=== PATIENT | male | born 1950 | race African-American/Black ===

== ENCOUNTER 2019-12-03 18:08 | Inpatient (IN) | payer MEDICARE, OTHER ==
[2019-12-04 08:09] VITALS: BP 124/72
--- NOTE | 2019-12-04 11:42 | History & Physical ---
ADMIT DATE: 12/04/2019 IDENTIFYING INFORMATION: The patient is a 69-year-old black male. CHIEF COMPLAINT: No answer. HISTORY OF PRESENT ILLNESS: The patient was referred because of agitation and psychosis. The patient himself was a poor historian. He believes he was 1 years of age. When I asked if he is , he pointed to the ceiling. When asked if he went to school, he said his kids. When I asked him what he did. He walk and speak. He did not know where he is or why he is here. He can tell me the date. He was a very poor historian. He was in the [place], intent to harm herself or anyone. He asked if he has any children. He pointed to the ceiling. He is a very poor historian and easily agitated. PAST PSYCHIATRIC HISTORY: Unobtainable. MEDICAL HISTORY: Deferred to the medical doctor. ALLERGIES: THE PATIENT IS ALLERGIC TO CODEINE. MEDICATIONS: The patient was started on Risperdal 0.5 mg twice a day, Depakote 250 mg twice a day. FAMILY AND SOCIAL HISTORY: The patient may be . He is not sure where he lives. He is not sure if he has any children. Unable to get information from him. MENTAL STATUS EXAMINATION: The patient is appropriately dressed, not well groomed. He was alert. He was able to talk, but he was not making sense, unable to tell me the date, where he is, why he is here, unable to participate in a formal mental status examination or give me any information regarding his background and why he is here. He seems to be demented and confused. His long or short term memory is poor. His insight and judgment is impaired. IMPRESSION: Psychosis, not otherwise specified, dementia. MEDICAL DIAGNOSES: As per medical doctor. His assets, accepting treatment. Negative for coping skills. INITIAL TREATMENT PLAN: The patient will continue with Depakote and Risperdal. We will do group therapy and milieu therapy. ESTIMATED LENGTH OF STAY: 3-7 days. DISCHARGE CRITERIA: Decreasing psychosis, agitation and confusion, after discharge outpatient. JOB# [id number]
[2019-12-04] MEDS ORDERED: Maalox 30 mL Cup PO PRN (13:06)
[2019-12-04] MEDS ORDERED: D METHORPHAN HB PO PRN (13:06)
[2019-12-04] MEDS ORDERED: Hydrocodone/APAP 5mg/325mg Tab PO PRN (13:06)
[2019-12-04] MEDS ORDERED: Albuterol/Ipratropium Neb 3 ML AERS HHN PRN (13:06)
[2019-12-04] MEDS ORDERED: GUAIFENESIN PO PRN (13:06)
[2019-12-04] MEDS ORDERED: [UNRECOGNIZED DRUG - OTHER] PO PRN (13:06)
[2019-12-04] MEDS ORDERED: Magnesium Hydroxide (MOM) 30 mL UDC PO PRN (17:33)
[2019-12-04] MEDS: Guaifenesin DM 10 ML UDC PO PRN (20:39)
--- NOTE | 2019-12-05 06:56 | Consultation ---
DATE OF CONSULTATION: 12/04/2019 REASON FOR CONSULTATION: Medical management and clearance. The patient admitted to inpatient unit. HISTORY OF PRESENT ILLNESS: This is a 69-year-old male with history of COPD, chronic pain syndrome, constipation, admitted from ____ secondary to agitated behavior. The patient was admitted and cleared medically from [facility]. The patient denies chest pain, shortness of breath at this time. PAST MEDICAL HISTORY: As mentioned in history of present illness. PAST SURGICAL HISTORY: Status post thyroid surgery. ALLERGIES: CODEINE. MEDICATIONS: Albuterol, guaifenesin, the patient was also on morphine as needed at the hospital. FAMILY HISTORY: Denies diabetes, coronary artery disease. SOCIAL HISTORY: Smokes about 2-3 cigarettes per day, drinks heavily when he was younger, used to work in postal office. Single with one child. The patient has been in a nursing facility for months. REVIEW OF SYSTEMS: GENERAL: The patient denies any constitutional symptoms per nursing, the patient is still agitated. HEENT: The patient with some blurred vision. NECK: No neck pain. LUNGS: No diagnosis of asthma. The patient with no COPD. ABDOMEN: No nausea, vomiting or pain. GENITOURINARY: The patient denies increased frequency, dysuria or hematuria. NEUROLOGIC: No headache, seizure or syncope. PSYCHIATRIC: Stable. ENDOCRINE: The patient denies diabetes. HEMATOLOGY: No ____. PHYSICAL EXAMINATION: VITAL SIGNS: Blood pressure 124/73, respirations 20, pulse 89, temperature 97.5. GENERAL: Elderly male, thin built. NECK: Supple. No mass. LUNGS: Equal breath sounds with a few rhonchi. HEART: Regular rate and rhythm without appreciable murmur. ABDOMEN: Soft, nontender. Positive bowel sounds. ____ abscess. SKIN: The patient with dry skin. EXTREMITIES: No clubbing, cyanosis or edema. NEUROLOGIC: The patient is alert. The patient of Dr. Covington ____ downward. We will ____ has normal sensation and forehead ____ unable to move his upper ____, able to shrug his shoulders on both sides. The patient will be able to ____ motor and sensory were equal. Gait not seen. The patient is in bed. Reflexes unable to be performed. The patient refused ____. LABORATORY DATA: Labs were noted, hemoglobin was 13. ASSESSMENT AND PLAN: Alzheimer dementia, chronic obstructive pulmonary disease, constipation, chronic pain syndrome, anemia, elevated liver function tests, 42 and 57 of AST and ALT respectively, albumin 2.9. We will provide the patient with bronchodilator treatment as well as laxative. We will provide the patient adequate pain control. Monitor the patient's hemoglobin and hematocrit. We will check the patient's liver function tests. We will provide the patient with good nutrition support. We will continue to follow the patient with Dr. Adria carlisle. The patient medically cleared. JOB# [id number]
[2019-12-05] MEDS: Multivitamin Tab PO SCH (09:34)
--- NOTE | 2019-12-05 11:58 | Progress Notes ---
DATE: 12/05/2019 Case was discussed with staff of the patient, reviewed records. The patient continues to be rambling, unable to make safe plan for self-care or participate in a meaningful conversation. Continues to have episodes of agitation, irritability, refusing medication at times, and very poor insight. Working on trying to move the patient to take medication, be compliant. We will continue the patient in group therapy, milieu therapy, and adjust medications as needed. JOB# [id number]
--- NOTE | 2019-12-05 12:45 | Internal Medicine Prog Note ---
Internal Medicine Subjective - Subjective Patient seen and examined:: with staff, chart reviewed Patient is:: awake, verbal, interactive, confused Per staff patient has:: no adverse event, no episodes of fall, tolerating meds Internal Medicine Objective - Physical Exam Vitals and I&O: Vital Signs Temp 97.6 F 12/05/19 06:16 Pulse 74 12/05/19 06:16 Resp 20 12/05/19 06:16 BP 114/66 12/05/19 06:16 Pulse Ox 98 12/05/19 06:16 Intake & Output 12/04/19 12/05/19 12/05/19 18:59 06:59 18:59 Intake Total 240 Output Total 1 Balance 239 Weight (lbs) 53.796 kg Intake: Oral 240 Output: Urine/Stool Mix 1 Other: # Voids 1 Stool Characteristics Formed Weight Source Bedscale Active Medications: Current Medications Acetaminophen (Tylenol 650mg Supp) 650 mg RC Q6H PRN PRN Reason: Pain (Mild 1-3) Stop: 02/02/20 08:47 Acetaminophen (Tylenol 650mg Supp) 650 mg RC Q6H PRN PRN Reason: Temperature above 101 Stop: 02/02/20 08:48 Acetaminophen (Tylenol) 650 mg PO Q4H PRN PRN Reason: Pain (Mild 1-3) Stop: 02/02/20 13:05 Acetaminophen/Hydrocodone Bitart ([place] 5mg/325mg) 1 tab PO Q4H PRN PRN Reason: Pain (Severe 7-10) Stop: 02/02/20 13:05 Al Hydrox/Mg Hydrox/Simethicone (Maalox) 30 ml PO Q6H PRN PRN Reason: Dyspepsia Stop: 02/02/20 13:05 Albuterol/Ipratropium (Duoneb Neb) 3 ml HHN Q6HR PRN PRN Reason: shortness of breath or wheezin Stop: 02/02/20 13:05 Guaifenesin/Dextromethorphan (Robitussin Dm) 5 ml PO Q6H PRN PRN Reason: Cough Stop: 02/02/20 14:13 Last Admin: 12/04/19 20:39 Dose: 5 ml Lorazepam (Ativan) 0.5 mg PO Q4HR PRN; Protocol PRN Reason: Anxiety Stop: 01/03/20 08:06 Magnesium Hydroxide (Milk Of Magnesia) 30 ml PO HS PRN PRN Reason: Constipation Multivitamins/Vitamin C (Theragran) 1 tab PO DAILY IRAIS Stop: 02/03/20 08:59 Last Admin: 12/05/19 09:34 Dose: Not Given Risperidone (Risperdal) 0.5 mg PO BID IRAIS; Protocol Stop: 02/02/20 08:59 Last Admin: 12/05/19 10:20 Dose: 0.5 mg Valproate Sodium (Depakene) 250 mg PO BID IRAIS; Protocol Stop: 02/02/20 08:59 Last Admin: 12/05/19 10:20 Dose: 250 mg Zolpidem Tartrate (Ambien) 5 mg PO HS PRN PRN Reason: Insomnia Stop: 02/02/20 08:06 Last Admin: 12/04/19 20:40 Dose: 5 mg General: demented HEENT: NC/AT, PERRLA Neck: Supple Lungs: CTAB Cardiovascular: RRR, Normal S1, Normal S2, with murmur Abdomen: soft, positive bowel sound Extremities: excoriation Internal Medicine Assmt/Plan - Assessment Assessment: ASSESSMENT AND PLAN: Alzheimer dementia, chronic obstructive pulmonary disease, constipation, chronic pain syndrome, anemia, elevated liver function tests, 42 and 57 of AST and ALT respectively, albumin 2.9. - Plan Plan: PLAN: We will provide the patient with bronchodilator treatment as well as laxative. We will provide the patient adequate pain control. Monitor the patient's hemoglobin and hematocrit. We will check the patient's liver function tests. We will provide the patient with good nutrition support. We will continue to follow the patient with Dr. Adria carlisle.
[2019-12-05] MEDS: Guaifenesin DM 10 ML UDC PO PRN (20:42)
[2019-12-06] MEDS: Multivitamin Tab PO SCH (09:51)
--- NOTE | 2019-12-06 11:52 | Internal Medicine Prog Note ---
Internal Medicine Subjective - Subjective Service Date: 12/06/19 Patient is:: awake, verbal, interactive, confused Per staff patient has:: no adverse event, no episodes of fall, tolerating meds Internal Medicine Objective - Physical Exam Vitals and I&O: Vital Signs Temp 99.0 F 12/05/19 20:22 Pulse 73 12/05/19 20:22 Resp 18 12/06/19 08:00 BP 100/55 12/05/19 20:22 Pulse Ox 98 12/05/19 20:22 Intake & Output 12/05/19 12/06/19 12/06/19 18:59 06:59 18:59 Intake Total 180 Balance 180 Intake: Oral 180 Other: # Voids 1 # Bowel Movements 0 Stool Characteristics Formed Formed Active Medications: Current Medications Acetaminophen (Tylenol 650mg Supp) 650 mg RC Q6H PRN PRN Reason: Pain (Mild 1-3) Stop: 02/02/20 08:47 Acetaminophen (Tylenol 650mg Supp) 650 mg RC Q6H PRN PRN Reason: Temperature above 101 Stop: 02/02/20 08:48 Acetaminophen (Tylenol) 650 mg PO Q4H PRN PRN Reason: Pain (Mild 1-3) Stop: 02/02/20 13:05 Acetaminophen/Hydrocodone Bitart ([place] 5mg/325mg) 1 tab PO Q4H PRN PRN Reason: Pain (Severe 7-10) Stop: 02/02/20 13:05 Al Hydrox/Mg Hydrox/Simethicone (Maalox) 30 ml PO Q6H PRN PRN Reason: Dyspepsia Stop: 02/02/20 13:05 Albuterol/Ipratropium (Duoneb Neb) 3 ml HHN Q6HR PRN PRN Reason: shortness of breath or wheezin Stop: 02/02/20 13:05 Guaifenesin/Dextromethorphan (Robitussin Dm) 5 ml PO Q6H PRN PRN Reason: Cough Stop: 02/02/20 14:13 Last Admin: 12/05/19 20:42 Dose: 5 ml Lorazepam (Ativan) 0.5 mg PO Q4HR PRN; Protocol PRN Reason: Anxiety Stop: 01/03/20 08:06 Magnesium Hydroxide (Milk Of Magnesia) 30 ml PO HS PRN PRN Reason: Constipation Multivitamins/Vitamin C (Theragran) 1 tab PO DAILY IRAIS Stop: 02/03/20 08:59 Last Admin: 12/06/19 09:51 Dose: 1 tab Risperidone (Risperdal) 0.5 mg PO BID IRAIS; Protocol Stop: 02/02/20 08:59 Last Admin: 12/06/19 09:51 Dose: 0.5 mg Valproate Sodium (Depakene) 250 mg PO BID IRAIS; Protocol Stop: 02/02/20 08:59 Last Admin: 12/06/19 09:51 Dose: 250 mg Zolpidem Tartrate (Ambien) 5 mg PO HS PRN PRN Reason: Insomnia Stop: 02/02/20 08:06 Last Admin: 12/05/19 20:42 Dose: 5 mg General: demented HEENT: NC/AT, PERRLA Neck: Supple Lungs: CTAB Cardiovascular: RRR, Normal S1, Normal S2, with murmur Abdomen: soft, positive bowel sound Extremities: excoriation Internal Medicine Assmt/Plan - Assessment Assessment: Alzheimer dementia, chronic obstructive pulmonary disease, constipation, chronic pain syndrome, anemia, elevated liver function tests, 42 and 57 of AST and ALT respectively, albumin 2.9. - Plan Plan: : We will provide the patient with bronchodilator treatment as well as laxative. We will provide the patient adequate pain control. Monitor the patient's hemoglobin and hematocrit. We will check the patient's liver function tests. We will provide the patient with good nutrition support. We will continue to follow the patient with Dr. Adria carlisle. Nutritional Asmnt/Malnutr-PDOC - Dietary Evaluation Malnutrition Findings (Please click <Entered> for more info): Nutritional Asmnt/Malnutrition Start: 12/05/19 15: 04 Text: Status: Complete Freq: Protocol: Document 12/05/19 15:04 ALVIN (Rec: 12/05/19 15:08 [email or web address] [email or web address]) Nutritional Asmnt/Malnutrition Patient General Information Nutritional Screening High Risk Consult Diagnosis Psychosis Pertinent Medical Hx/Surgical Hx COPD, Chronic pain syndrome, constipation, S/P thyroid surgery Subjective Information Consult: Underweight Pt is a 69-year-old male admitted on 12/04 d/t agitation and psychosis. Pt ate 85-100% lunch and dinner yesterday. Pt has noted constipation and Hx constipation, recommend nurse to encourage adequate fluid intake. Per BUSINESS PROCESS EXPERT, pt ate 100% breakfast and lunch today, drank all ensure at both meals . Spoke with pt at time of visit, pt stated people are swollen today and he eats enough. PT was missing front teeth, but tolerating mechanical soft, chopped meals well. Pt was not interested in a nutrition focused physical examination, will F/U in 3-5 days. Educated pt on requesting snacks when he is hungry, pt was overall a little confused. Will continue to monitor pt PO intake and weight trends. Anthropometrics HT: 58 WT: 118 LB (53.64 kg) BMI: 18.03 (Underweight) GI/ Skin Integrity GI: WNL, Soft, Flat, Constipation BM: Not Noted, noted constipation I/O: 240/1 (+239) Skin: Pt refused skin assessment 12/04, 12/05 Adán: 19 Diet Order: Mechanical Soft, Ensure Enlive TID, No Lactose Estimated Energy Needs: ( Underweight, CBW) 5396-7180 kcals (30-35 kcals/ kg) 60-70g Pro (1.2-1.3 g/kg) 9109-7219 ml (30-35 ml/kg) Current Diet Order/ Nutrition Support Mechanical Soft, Ensure Enlive TID, No Lactose Pertinent Medications Maalox (PRN), Albuterol (PRN), MOM (PRN), Theragran Pertinent Labs 12/04: A1c 5.1%, Alk Phos 281, AST 42, Alb 2.9 Nutritional Hx/Data Height 5 ft 8 in Height (Calculated Centimeters) 172.7 Current Weight (lbs) 118 lb 9.6 oz Weight (Calculated Kilograms) 53.8 Weight (Calculated Grams) 20977.1 Body Mass Index (BMI) 18.0 Weight Status Underweight GI Symptoms Last BM Not Noted, noted constipation Skin Integrity/Comment: Skin: Pt refused skin assessment 12/04, 12/05 Adán: 19 Current %PO Good (75-100%) Estimated Nutritional Goals BEE in Kcals: Using Current wt Calories/Kcals/Kg 30-35 Kcals Calculated 7068-5400 Protein: Using Current wt Protein g/k.2-1.3 Protein Calculated 60-70 Fluid: ml 7620-7749 ml (30-35 ml/kg) Nutritional Problem 1. Problem Problem Underweight Etiology r/t consistent energy underconsumption Signs/Symptoms: aeb BMI <18.5 (18.03). Malnutrition Related to Morbid Obesity Malnutrition related to morbid obesity No Intervention/Recommendation Comments 1.Continue Mechanical Soft, Ensure Enlive TID, No Lactose diet as tolerated. 2.Nurse to encourage adequate fluid intake d/t noted constipation. Expected Outcomes/Goals Expected Outcomes/Goals 1.PO intake to meet 75% of estimated nutritional needs. 2.Monitor PO intake, wt, nutrition related labs, and skin integrity. 3.Gradual weight gain (0.5-1.0 LB/week) trending toward IBW preferred. 4.F/U as moderate risk in 3-5 days, 12/08-12/10.
--- NOTE | 2019-12-06 19:55 | Progress Notes ---
DATE: 12/06/2019 Case was discussed with staff of the patient, reviewed records. The patient continues to be unpredictable, impulsive, needing redirection, refusing medication at times, hard to redirect. No side effects with the medication, no sedation, no nausea, no extrapyramidal symptoms. He is able to go to the group room now. Continue Risperdal 0.5 mg twice a day, Depakote 250 mg twice a day. We will continue outpatient group therapy, milieu therapy, and adjust medications as needed. JOB# [id number]
[2019-12-07] MEDS: Multivitamin Tab PO SCH (10:00)
--- NOTE | 2019-12-07 13:10 | Internal Medicine Prog Note ---
Internal Medicine Subjective - Subjective Service Date: 12/07/19 Patient is:: awake, verbal, interactive, confused Per staff patient has:: no adverse event, no episodes of fall, tolerating meds Internal Medicine Objective - Physical Exam Vitals and I&O: Vital Signs Temp 97.5 F 12/07/19 07:12 Pulse 78 12/07/19 07:12 Resp 18 12/07/19 08:00 BP 109/61 12/07/19 07:12 Pulse Ox 97 12/07/19 07:12 Intake & Output 12/06/19 12/07/19 12/07/19 18:59 06:59 18:59 Intake Total 1200 240 Balance 1200 240 Intake: Oral 1200 240 Other: # Voids 4 2 1 # Bowel Movements 0 Active Medications: Current Medications Acetaminophen (Tylenol 650mg Supp) 650 mg RC Q6H PRN PRN Reason: Pain (Mild 1-3) Stop: 02/02/20 08:47 Acetaminophen (Tylenol 650mg Supp) 650 mg RC Q6H PRN PRN Reason: Temperature above 101 Stop: 02/02/20 08:48 Acetaminophen (Tylenol) 650 mg PO Q4H PRN PRN Reason: Pain (Mild 1-3) Stop: 02/02/20 13:05 Acetaminophen/Hydrocodone Bitart ([place] 5mg/325mg) 1 tab PO Q4H PRN PRN Reason: Pain (Severe 7-10) Stop: 02/02/20 13:05 Al Hydrox/Mg Hydrox/Simethicone (Maalox) 30 ml PO Q6H PRN PRN Reason: Dyspepsia Stop: 02/02/20 13:05 Albuterol/Ipratropium (Duoneb Neb) 3 ml HHN Q6HR PRN PRN Reason: shortness of breath or wheezin Stop: 02/02/20 13:05 Guaifenesin/Dextromethorphan (Robitussin Dm) 5 ml PO Q6H PRN PRN Reason: Cough Stop: 02/02/20 14:13 Last Admin: 12/05/19 20:42 Dose: 5 ml Lorazepam (Ativan) 0.5 mg PO Q4HR PRN; Protocol PRN Reason: Anxiety Stop: 01/03/20 08:06 Magnesium Hydroxide (Milk Of Magnesia) 30 ml PO HS PRN PRN Reason: Constipation Multivitamins/Vitamin C (Theragran) 1 tab PO DAILY IRAIS Stop: 02/03/20 08:59 Last Admin: 12/07/19 10:00 Dose: 1 tab Risperidone (Risperdal) 0.5 mg PO BID IRAIS; Protocol Stop: 02/02/20 08:59 Last Admin: 12/07/19 10:00 Dose: 0.5 mg Valproate Sodium (Depakene) 250 mg PO BID IRAIS; Protocol Stop: 02/02/20 08:59 Last Admin: 12/07/19 10:00 Dose: 250 mg Zolpidem Tartrate (Ambien) 5 mg PO HS PRN PRN Reason: Insomnia Stop: 02/02/20 08:06 Last Admin: 12/06/19 21:04 Dose: 5 mg General: demented HEENT: NC/AT, PERRLA Neck: Supple Lungs: CTAB Cardiovascular: RRR, Normal S1, Normal S2, with murmur Abdomen: soft, positive bowel sound Extremities: excoriation Internal Medicine Assmt/Plan - Assessment Assessment: Alzheimer dementia, chronic obstructive pulmonary disease, constipation, chronic pain syndrome, anemia, elevated liver function tests, 42 and 57 of AST and ALT respectively, albumin 2.9. - Plan Plan: : We will provide the patient with bronchodilator treatment as well as laxative. We will provide the patient adequate pain control. Monitor the patient's hemoglobin and hematocrit. We will check the patient's liver function tests. We will provide the patient with good nutrition support. We will continue to follow the patient with Dr. Adria carlisle. Nutritional Asmnt/Malnutr-PDOC - Dietary Evaluation Malnutrition Findings (Please click <Entered> for more info): Nutritional Asmnt/Malnutrition Start: 12/05/19 15: 04 Text: Status: Complete Freq: Protocol: Document 12/05/19 15:04 ALVIN (Rec: 12/05/19 15:08 ALVIN [email or web address]) Nutritional Asmnt/Malnutrition Patient General Information Nutritional Screening High Risk Consult Diagnosis Psychosis Pertinent Medical Hx/Surgical Hx COPD, Chronic pain syndrome, constipation, S/P thyroid surgery Subjective Information Consult: Underweight Pt is a 69-year-old male admitted on 12/04 d/t agitation and psychosis. Pt ate 85-100% lunch and dinner yesterday. Pt has noted constipation and Hx constipation, recommend nurse to encourage adequate fluid intake. Per SENIOR LEAD PROJECT MANAGER, pt ate 100% breakfast and lunch today, drank all ensure at both meals . Spoke with pt at time of visit, pt stated people are swollen today and he eats enough. PT was missing front teeth, but tolerating mechanical soft, chopped meals well. Pt was not interested in a nutrition focused physical examination, will F/U in 3-5 days. Educated pt on requesting snacks when he is hungry, pt was overall a little confused. Will continue to monitor pt PO intake and weight trends. Anthropometrics HT: 58 WT: 118 LB (53.64 kg) BMI: 18.03 (Underweight) GI/ Skin Integrity GI: WNL, Soft, Flat, Constipation BM: Not Noted, noted constipation I/O: 240/1 (+239) Skin: Pt refused skin assessment 12/04, 12/05 Adán: 19 Diet Order: Mechanical Soft, Ensure Enlive TID, No Lactose Estimated Energy Needs: ( Underweight, CBW) 5951-2866 kcals (30-35 kcals/ kg) 60-70g Pro (1.2-1.3 g/kg) 9446-4243 ml (30-35 ml/kg) Current Diet Order/ Nutrition Support Mechanical Soft, Ensure Enlive TID, No Lactose Pertinent Medications Maalox (PRN), Albuterol (PRN), MOM (PRN), Theragran Pertinent Labs 12/04: A1c 5.1%, Alk Phos 281, AST 42, Alb 2.9 Nutritional Hx/Data Height 5 ft 8 in Height (Calculated Centimeters) 172.7 Current Weight (lbs) 118 lb 9.6 oz Weight (Calculated Kilograms) 53.8 Weight (Calculated Grams) 84453.1 Body Mass Index (BMI) 18.0 Weight Status Underweight GI Symptoms Last BM Not Noted, noted constipation Skin Integrity/Comment: Skin: Pt refused skin assessment 12/04, 12/05 Adán: 19 Current %PO Good (75-100%) Estimated Nutritional Goals BEE in Kcals: Using Current wt Calories/Kcals/Kg 30-35 Kcals Calculated 0742-4054 Protein: Using Current wt Protein g/k.2-1.3 Protein Calculated 60-70 Fluid: ml 4292-6446 ml (30-35 ml/kg) Nutritional Problem 1. Problem Problem Underweight Etiology r/t consistent energy underconsumption Signs/Symptoms: aeb BMI <18.5 (18.03). Malnutrition Related to Morbid Obesity Malnutrition related to morbid obesity No Intervention/Recommendation Comments 1.Continue Mechanical Soft, Ensure Enlive TID, No Lactose diet as tolerated. 2.Nurse to encourage adequate fluid intake d/t noted constipation. Expected Outcomes/Goals Expected Outcomes/Goals 1.PO intake to meet 75% of estimated nutritional needs. 2.Monitor PO intake, wt, nutrition related labs, and skin integrity. 3.Gradual weight gain (0.5-1.0 LB/week) trending toward IBW preferred. 4.F/U as moderate risk in 3-5 days, 12/08-12/10.
--- NOTE | 2019-12-07 20:08 | Progress Notes ---
DATE: 12/07/2019 Case was discussed with staff of the patient, reviewed records. The patient continues to be confused, demented, irritable. Continues to have poor insight, rambling speech, unable to make safe plan for self-care, unable to participate in meaningful conversation. He has been compliant with the medication with no side effects, no sedation, no nausea, no extrapyramidal symptoms. We will continue outpatient group therapy, milieu therapy, adjust medication as needed. JOB# [id number]
[2019-12-08] MEDS: Multivitamin Tab PO SCH (08:48)
--- NOTE | 2019-12-08 13:02 | Internal Medicine Prog Note ---
Internal Medicine Subjective - Subjective Patient seen and examined:: with staff, chart reviewed Patient is:: awake, verbal, interactive, confused Per staff patient has:: no adverse event, no episodes of fall, tolerating meds Internal Medicine Objective - Physical Exam Vitals and I&O: Vital Signs Temp 98.2 F 12/07/19 20:00 Pulse 82 12/07/19 20:00 Resp 18 12/08/19 08:00 BP 116/62 12/07/19 20:00 Pulse Ox 96 12/07/19 20:00 Intake & Output 12/07/19 12/08/19 12/08/19 18:59 06:59 18:59 Intake Total 800 120 Balance 800 120 Intake: Oral 800 120 Other: # Voids 4 3 # Bowel Movements 0 Active Medications: Current Medications Acetaminophen (Tylenol 650mg Supp) 650 mg RC Q6H PRN PRN Reason: Pain (Mild 1-3) Stop: 02/02/20 08:47 Acetaminophen (Tylenol 650mg Supp) 650 mg RC Q6H PRN PRN Reason: Temperature above 101 Stop: 02/02/20 08:48 Acetaminophen (Tylenol) 650 mg PO Q4H PRN PRN Reason: Pain (Mild 1-3) Stop: 02/02/20 13:05 Acetaminophen/Hydrocodone Bitart ([place] 5mg/325mg) 1 tab PO Q4H PRN PRN Reason: Pain (Severe 7-10) Stop: 02/02/20 13:05 Al Hydrox/Mg Hydrox/Simethicone (Maalox) 30 ml PO Q6H PRN PRN Reason: Dyspepsia Stop: 02/02/20 13:05 Albuterol/Ipratropium (Duoneb Neb) 3 ml HHN Q6HR PRN PRN Reason: shortness of breath or wheezin Stop: 02/02/20 13:05 Guaifenesin/Dextromethorphan (Robitussin Dm) 5 ml PO Q6H PRN PRN Reason: Cough Stop: 02/02/20 14:13 Last Admin: 12/05/19 20:42 Dose: 5 ml Lorazepam (Ativan) 0.5 mg PO Q4HR PRN; Protocol PRN Reason: Anxiety Stop: 01/03/20 08:06 Magnesium Hydroxide (Milk Of Magnesia) 30 ml PO HS PRN PRN Reason: Constipation Multivitamins/Vitamin C (Theragran) 1 tab PO DAILY IRAIS Stop: 02/03/20 08:59 Last Admin: 12/08/19 08:48 Dose: 1 tab Risperidone (Risperdal) 0.5 mg PO BID IRAIS; Protocol Stop: 02/02/20 08:59 Last Admin: 12/08/19 08:47 Dose: 0.5 mg Valproate Sodium (Depakene) 250 mg PO BID IRAIS; Protocol Stop: 02/02/20 08:59 Last Admin: 12/08/19 08:47 Dose: 250 mg Zolpidem Tartrate (Ambien) 5 mg PO HS PRN PRN Reason: Insomnia Stop: 02/02/20 08:06 Last Admin: 12/07/19 22:01 Dose: 5 mg General: demented HEENT: NC/AT, PERRLA Neck: Supple Lungs: CTAB Cardiovascular: RRR, Normal S1, Normal S2, with murmur Abdomen: soft, positive bowel sound Extremities: excoriation Internal Medicine Assmt/Plan - Assessment Assessment: ASSESSMENT AND PLAN: Alzheimer dementia, chronic obstructive pulmonary disease, constipation, chronic pain syndrome, anemia, elevated liver function tests, 42 and 57 of AST and ALT respectively, albumin 2.9. - Plan Plan: PLAN: We will provide the patient with bronchodilator treatment as well as laxative. We will provide the patient adequate pain control. Monitor the patient's hemoglobin and hematocrit. We will check the patient's liver function tests. We will provide the patient with good nutrition support. We will continue to follow the patient with Dr. Adria carlisle. Nutritional Asmnt/Malnutr-PDOC - Dietary Evaluation Malnutrition Findings (Please click <Entered> for more info): Nutritional Asmnt/Malnutrition Start: 12/05/19 15: 04 Text: Status: Complete Freq: Protocol: Document 12/05/19 15:04 ALVIN (Rec: 12/05/19 15:08 ALVIN [email or web address]) Nutritional Asmnt/Malnutrition Patient General Information Nutritional Screening High Risk Consult Diagnosis Psychosis Pertinent Medical Hx/Surgical Hx COPD, Chronic pain syndrome, constipation, S/P thyroid surgery Subjective Information Consult: Underweight Pt is a 69-year-old male admitted on 12/04 d/t agitation and psychosis. Pt ate 85-100% lunch and dinner yesterday. Pt has noted constipation and Hx constipation, recommend nurse to encourage adequate fluid intake. Per REMOTE CONTROL ASSEMBLER, pt ate 100% breakfast and lunch today, drank all ensure at both meals . Spoke with pt at time of visit, pt stated people are swollen today and he eats enough. PT was missing front teeth, but tolerating mechanical soft, chopped meals well. Pt was not interested in a nutrition focused physical examination, will F/U in 3-5 days. Educated pt on requesting snacks when he is hungry, pt was overall a little confused. Will continue to monitor pt PO intake and weight trends. Anthropometrics HT: 58 WT: 118 LB (53.64 kg) BMI: 18.03 (Underweight) GI/ Skin Integrity GI: WNL, Soft, Flat, Constipation BM: Not Noted, noted constipation I/O: 240/1 (+239) Skin: Pt refused skin assessment 12/04, 12/05 Adán: 19 Diet Order: Mechanical Soft, Ensure Enlive TID, No Lactose Estimated Energy Needs: ( Underweight, CBW) 5577-0436 kcals (30-35 kcals/ kg) 60-70g Pro (1.2-1.3 g/kg) 6823-0300 ml (30-35 ml/kg) Current Diet Order/ Nutrition Support Mechanical Soft, Ensure Enlive TID, No Lactose Pertinent Medications Maalox (PRN), Albuterol (PRN), MOM (PRN), Theragran Pertinent Labs 12/04: A1c 5.1%, Alk Phos 281, AST 42, Alb 2.9 Nutritional Hx/Data Height 1.73 m Height (Calculated Centimeters) 172.7 Current Weight (lbs) 53.796 kg Weight (Calculated Kilograms) 53.8 Weight (Calculated Grams) 94383.1 Body Mass Index (BMI) 18.0 Weight Status Underweight GI Symptoms Last BM Not Noted, noted constipation Skin Integrity/Comment: Skin: Pt refused skin assessment 12/04, 12/05 Adán: 19 Current %PO Good (75-100%) Estimated Nutritional Goals BEE in Kcals: Using Current wt Calories/Kcals/Kg 30-35 Kcals Calculated 6889-6269 Protein: Using Current wt Protein g/k.2-1.3 Protein Calculated 60-70 Fluid: ml 5775-2821 ml (30-35 ml/kg) Nutritional Problem 1. Problem Problem Underweight Etiology r/t consistent energy underconsumption Signs/Symptoms: aeb BMI <18.5 (18.03). Malnutrition Related to Morbid Obesity Malnutrition related to morbid obesity No Intervention/Recommendation Comments 1.Continue Mechanical Soft, Ensure Enlive TID, No Lactose diet as tolerated. 2.Nurse to encourage adequate fluid intake d/t noted constipation. Expected Outcomes/Goals Expected Outcomes/Goals 1.PO intake to meet 75% of estimated nutritional needs. 2.Monitor PO intake, wt, nutrition related labs, and skin integrity. 3.Gradual weight gain (0.5-1.0 LB/week) trending toward IBW preferred. 4.F/U as moderate risk in 3-5 days, 12/08-12/10.
--- NOTE | 2019-12-08 18:49 | Progress Notes ---
DATE: 12/08/2019 Case was discussed with staff of the patient, reviewed records. The patient continues rambling, continues to be unpredictable, impulsive, continues to have poor insight, unable to participate in meaningful conversation or make safe plan for self-care. No side effects with the medication, no sedation, no nausea, no extrapyramidal symptoms. We will continue the patient in group therapy, milieu therapy, and adjust medications as needed. [facility]# [id number]
[2019-12-09] MEDS: Multivitamin Tab PO SCH (08:51)
--- NOTE | 2019-12-09 12:09 | Internal Medicine Prog Note ---
Internal Medicine Subjective - Subjective Patient seen and examined:: with staff, chart reviewed Patient is:: awake, verbal, interactive, confused Per staff patient has:: no adverse event, no episodes of fall, tolerating meds Internal Medicine Objective - Physical Exam Vitals and I&O: Vital Signs Temp 97.6 F 12/09/19 05:59 Pulse 76 12/09/19 05:59 Resp 20 12/09/19 05:59 BP 109/59 12/09/19 05:59 Pulse Ox 96 12/09/19 05:59 Intake & Output 12/08/19 12/09/19 12/09/19 18:59 06:59 18:59 Intake Total 1000 240 Balance 1000 240 Intake: Oral 1000 240 Other: # Voids 4 2 # Bowel Movements 1 Active Medications: Current Medications Acetaminophen (Tylenol 650mg Supp) 650 mg RC Q6H PRN PRN Reason: Pain (Mild 1-3) Stop: 02/02/20 08:47 Acetaminophen (Tylenol 650mg Supp) 650 mg RC Q6H PRN PRN Reason: Temperature above 101 Stop: 02/02/20 08:48 Acetaminophen (Tylenol) 650 mg PO Q4H PRN PRN Reason: Pain (Mild 1-3) Stop: 02/02/20 13:05 Acetaminophen/Hydrocodone Bitart ([place] 5mg/325mg) 1 tab PO Q4H PRN PRN Reason: Pain (Severe 7-10) Stop: 02/02/20 13:05 Al Hydrox/Mg Hydrox/Simethicone (Maalox) 30 ml PO Q6H PRN PRN Reason: Dyspepsia Stop: 02/02/20 13:05 Albuterol/Ipratropium (Duoneb Neb) 3 ml HHN Q6HR PRN PRN Reason: shortness of breath or wheezin Stop: 02/02/20 13:05 Guaifenesin/Dextromethorphan (Robitussin Dm) 5 ml PO Q6H PRN PRN Reason: Cough Stop: 02/02/20 14:13 Last Admin: 12/05/19 20:42 Dose: 5 ml Lorazepam (Ativan) 0.5 mg PO Q4HR PRN; Protocol PRN Reason: Anxiety Stop: 01/03/20 08:06 Magnesium Hydroxide (Milk Of Magnesia) 30 ml PO HS PRN PRN Reason: Constipation Multivitamins/Vitamin C (Theragran) 1 tab PO DAILY IRAIS Stop: 02/03/20 08:59 Last Admin: 12/09/19 08:51 Dose: 1 tab Risperidone (Risperdal) 0.5 mg PO BID IRAIS; Protocol Stop: 02/02/20 08:59 Last Admin: 12/09/19 08:51 Dose: 0.5 mg Valproate Sodium (Depakene) 250 mg PO BID IRAIS; Protocol Stop: 02/02/20 08:59 Last Admin: 12/09/19 08:51 Dose: 250 mg Zolpidem Tartrate (Ambien) 5 mg PO HS PRN PRN Reason: Insomnia Stop: 02/02/20 08:06 Last Admin: 12/08/19 20:45 Dose: 5 mg General: demented HEENT: NC/AT, PERRLA Neck: Supple Lungs: CTAB Cardiovascular: RRR, Normal S1, Normal S2, with murmur Abdomen: soft, positive bowel sound Extremities: excoriation Internal Medicine Assmt/Plan - Assessment Assessment: ASSESSMENT AND PLAN: Alzheimer dementia, chronic obstructive pulmonary disease, constipation, chronic pain syndrome, anemia, elevated liver function tests, 42 and 57 of AST and ALT respectively, albumin 2.9. - Plan Plan: PLAN: We will provide the patient with bronchodilator treatment as well as laxative. We will provide the patient adequate pain control. Monitor the patient's hemoglobin and hematocrit. We will check the patient's liver function tests. We will provide the patient with good nutrition support. We will continue to follow the patient with Dr. Adria carlisle. Nutritional Asmnt/Malnutr-PDOC - Dietary Evaluation Malnutrition Findings (Please click <Entered> for more info): Nutritional Asmnt/Malnutrition Start: 12/05/19 15: 04 Text: Status: Complete Freq: Protocol: Document 12/05/19 15:04 ALVIN (Rec: 12/05/19 15:08 ALVIN [email or web address]) Nutritional Asmnt/Malnutrition Patient General Information Nutritional Screening High Risk Consult Diagnosis Psychosis Pertinent Medical Hx/Surgical Hx COPD, Chronic pain syndrome, constipation, S/P thyroid surgery Subjective Information Consult: Underweight Pt is a 69-year-old male admitted on 12/04 d/t agitation and psychosis. Pt ate 85-100% lunch and dinner yesterday. Pt has noted constipation and Hx constipation, recommend nurse to encourage adequate fluid intake. Per CARTOGRAPHY TEACHER, pt ate 100% breakfast and lunch today, drank all ensure at both meals . Spoke with pt at time of visit, pt stated people are swollen today and he eats enough. PT was missing front teeth, but tolerating mechanical soft, chopped meals well. Pt was not interested in a nutrition focused physical examination, will F/U in 3-5 days. Educated pt on requesting snacks when he is hungry, pt was overall a little confused. Will continue to monitor pt PO intake and weight trends. Anthropometrics HT: 58 WT: 118 LB (53.64 kg) BMI: 18.03 (Underweight) GI/ Skin Integrity GI: WNL, Soft, Flat, Constipation BM: Not Noted, noted constipation I/O: 240/1 (+239) Skin: Pt refused skin assessment 12/04, 12/05 Adán: 19 Diet Order: Mechanical Soft, Ensure Enlive TID, No Lactose Estimated Energy Needs: ( Underweight, CBW) 4387-2335 kcals (30-35 kcals/ kg) 60-70g Pro (1.2-1.3 g/kg) 4009-4766 ml (30-35 ml/kg) Current Diet Order/ Nutrition Support Mechanical Soft, Ensure Enlive TID, No Lactose Pertinent Medications Maalox (PRN), Albuterol (PRN), MOM (PRN), Theragran Pertinent Labs 12/04: A1c 5.1%, Alk Phos 281, AST 42, Alb 2.9 Nutritional Hx/Data Height 1.73 m Height (Calculated Centimeters) 172.7 Current Weight (lbs) 53.796 kg Weight (Calculated Kilograms) 53.8 Weight (Calculated Grams) 88131.1 Body Mass Index (BMI) 18.0 Weight Status Underweight GI Symptoms Last BM Not Noted, noted constipation Skin Integrity/Comment: Skin: Pt refused skin assessment 12/04, 12/05 Adán: 19 Current %PO Good (75-100%) Estimated Nutritional Goals BEE in Kcals: Using Current wt Calories/Kcals/Kg 30-35 Kcals Calculated 5405-7982 Protein: Using Current wt Protein g/k.2-1.3 Protein Calculated 60-70 Fluid: ml 7616-0473 ml (30-35 ml/kg) Nutritional Problem 1. Problem Problem Underweight Etiology r/t consistent energy underconsumption Signs/Symptoms: aeb BMI <18.5 (18.03). Malnutrition Related to Morbid Obesity Malnutrition related to morbid obesity No Intervention/Recommendation Comments 1.Continue Mechanical Soft, Ensure Enlive TID, No Lactose diet as tolerated. 2.Nurse to encourage adequate fluid intake d/t noted constipation. Expected Outcomes/Goals Expected Outcomes/Goals 1.PO intake to meet 75% of estimated nutritional needs. 2.Monitor PO intake, wt, nutrition related labs, and skin integrity. 3.Gradual weight gain (0.5-1.0 LB/week) trending toward IBW preferred. 4.F/U as moderate risk in 3-5 days, 12/08-12/10.
--- NOTE | 2019-12-09 22:53 | Progress Notes ---
DATE: 12/09/2019 SUBJECTIVE: Case was discussed with staff of the patient, reviewed records. The patient continues to be demented, confused, unable to make safe plan for self-care. Continues to have poor insight, unpredictable, impulsive, needing redirection, he is unruly and unable to follow direction. No side effects with the medication, no sedation, no nausea, no extrapyramidal symptoms. We will continue outpatient group therapy, milieu therapy, and adjust medication as needed. JOB# [id number]
[2019-12-10] MEDS: Multivitamin Tab PO SCH (08:24)
--- NOTE | 2019-12-10 13:31 | Internal Medicine Prog Note ---
Internal Medicine Subjective - Subjective Patient seen and examined:: with staff, chart reviewed Patient is:: awake, verbal, interactive, confused Per staff patient has:: no adverse event, no episodes of fall, tolerating meds Internal Medicine Objective - Physical Exam Vitals and I&O: Vital Signs Temp 97.9 F 12/10/19 06:04 Pulse 82 12/10/19 06:04 Resp 18 12/10/19 08:00 BP 104/61 12/10/19 06:04 Pulse Ox 95 12/10/19 06:04 Intake & Output 12/09/19 12/10/19 12/10/19 18:59 06:59 18:59 Intake Total 800 120 Balance 800 120 Intake: Oral 800 120 Other: # Voids 4 3 # Bowel Movements 1 0 Active Medications: Current Medications Acetaminophen (Tylenol 650mg Supp) 650 mg RC Q6H PRN PRN Reason: Pain (Mild 1-3) Stop: 02/02/20 08:47 Acetaminophen (Tylenol 650mg Supp) 650 mg RC Q6H PRN PRN Reason: Temperature above 101 Stop: 02/02/20 08:48 Acetaminophen (Tylenol) 650 mg PO Q4H PRN PRN Reason: Pain (Mild 1-3) Stop: 02/02/20 13:05 Acetaminophen/Hydrocodone Bitart ([place] 5mg/325mg) 1 tab PO Q4H PRN PRN Reason: Pain (Severe 7-10) Stop: 02/02/20 13:05 Al Hydrox/Mg Hydrox/Simethicone (Maalox) 30 ml PO Q6H PRN PRN Reason: Dyspepsia Stop: 02/02/20 13:05 Albuterol/Ipratropium (Duoneb Neb) 3 ml HHN Q6HR PRN PRN Reason: shortness of breath or wheezin Stop: 02/02/20 13:05 Guaifenesin/Dextromethorphan (Robitussin Dm) 5 ml PO Q6H PRN PRN Reason: Cough Stop: 02/02/20 14:13 Last Admin: 12/05/19 20:42 Dose: 5 ml Lorazepam (Ativan) 0.5 mg PO Q4HR PRN; Protocol PRN Reason: Anxiety Stop: 01/03/20 08:06 Magnesium Hydroxide (Milk Of Magnesia) 30 ml PO HS PRN PRN Reason: Constipation Multivitamins/Vitamin C (Theragran) 1 tab PO DAILY IRAIS Stop: 02/03/20 08:59 Last Admin: 12/10/19 08:24 Dose: 1 tab Risperidone (Risperdal) 0.5 mg PO BID IRAIS; Protocol Stop: 02/02/20 08:59 Last Admin: 12/10/19 08:24 Dose: 0.5 mg Valproate Sodium (Depakene) 250 mg PO BID IRAIS; Protocol Stop: 02/02/20 08:59 Last Admin: 12/10/19 08:24 Dose: 250 mg Zolpidem Tartrate (Ambien) 5 mg PO HS PRN PRN Reason: Insomnia Stop: 02/02/20 08:06 Last Admin: 12/08/19 20:45 Dose: 5 mg General: demented HEENT: NC/AT, PERRLA Neck: Supple Lungs: CTAB Cardiovascular: RRR, Normal S1, Normal S2, with murmur Abdomen: soft, positive bowel sound Extremities: excoriation Internal Medicine Assmt/Plan - Assessment Assessment: ASSESSMENT AND PLAN: Alzheimer dementia, chronic obstructive pulmonary disease, constipation, chronic pain syndrome, anemia, elevated liver function tests, 42 and 57 of AST and ALT respectively, albumin 2.9. - Plan Plan: PLAN: We will provide the patient with bronchodilator treatment as well as laxative. We will provide the patient adequate pain control. Monitor the patient's hemoglobin and hematocrit. We will check the patient's liver function tests. We will provide the patient with good nutrition support. We will continue to follow the patient with Dr. Adria carlisle. Nutritional Asmnt/Malnutr-PDOC - Dietary Evaluation Malnutrition Findings (Please click <Entered> for more info): Nutritional Asmnt/Malnutrition Start: 12/05/19 15: 04 Text: Status: Complete Freq: Protocol: Document 12/05/19 15:04 ALVIN (Rec: 12/05/19 15:08 ALVIN [email or web address]) Nutritional Asmnt/Malnutrition Patient General Information Nutritional Screening High Risk Consult Diagnosis Psychosis Pertinent Medical Hx/Surgical Hx COPD, Chronic pain syndrome, constipation, S/P thyroid surgery Subjective Information Consult: Underweight Pt is a 69-year-old male admitted on 12/04 d/t agitation and psychosis. Pt ate 85-100% lunch and dinner yesterday. Pt has noted constipation and Hx constipation, recommend nurse to encourage adequate fluid intake. Per ELECTRONIC INSTALLER, pt ate 100% breakfast and lunch today, drank all ensure at both meals . Spoke with pt at time of visit, pt stated people are swollen today and he eats enough. PT was missing front teeth, but tolerating mechanical soft, chopped meals well. Pt was not interested in a nutrition focused physical examination, will F/U in 3-5 days. Educated pt on requesting snacks when he is hungry, pt was overall a little confused. Will continue to monitor pt PO intake and weight trends. Anthropometrics HT: 58 WT: 118 LB (53.64 kg) BMI: 18.03 (Underweight) GI/ Skin Integrity GI: WNL, Soft, Flat, Constipation BM: Not Noted, noted constipation I/O: 240/1 (+239) Skin: Pt refused skin assessment 12/04, 12/05 Adán: 19 Diet Order: Mechanical Soft, Ensure Enlive TID, No Lactose Estimated Energy Needs: ( Underweight, CBW) 6764-4857 kcals (30-35 kcals/ kg) 60-70g Pro (1.2-1.3 g/kg) 7976-8945 ml (30-35 ml/kg) Current Diet Order/ Nutrition Support Mechanical Soft, Ensure Enlive TID, No Lactose Pertinent Medications Maalox (PRN), Albuterol (PRN), MOM (PRN), Theragran Pertinent Labs 12/04: A1c 5.1%, Alk Phos 281, AST 42, Alb 2.9 Nutritional Hx/Data Height 1.73 m Height (Calculated Centimeters) 172.7 Current Weight (lbs) 53.796 kg Weight (Calculated Kilograms) 53.8 Weight (Calculated Grams) 39656.1 Body Mass Index (BMI) 18.0 Weight Status Underweight GI Symptoms Last BM Not Noted, noted constipation Skin Integrity/Comment: Skin: Pt refused skin assessment 12/04, 12/05 Adán: 19 Current %PO Good (75-100%) Estimated Nutritional Goals BEE in Kcals: Using Current wt Calories/Kcals/Kg 30-35 Kcals Calculated 2017-7064 Protein: Using Current wt Protein g/k.2-1.3 Protein Calculated 60-70 Fluid: ml 6222-1411 ml (30-35 ml/kg) Nutritional Problem 1. Problem Problem Underweight Etiology r/t consistent energy underconsumption Signs/Symptoms: aeb BMI <18.5 (18.03). Malnutrition Related to Morbid Obesity Malnutrition related to morbid obesity No Intervention/Recommendation Comments 1.Continue Mechanical Soft, Ensure Enlive TID, No Lactose diet as tolerated. 2.Nurse to encourage adequate fluid intake d/t noted constipation. Expected Outcomes/Goals Expected Outcomes/Goals 1.PO intake to meet 75% of estimated nutritional needs. 2.Monitor PO intake, wt, nutrition related labs, and skin integrity. 3.Gradual weight gain (0.5-1.0 LB/week) trending toward IBW preferred. 4.F/U as moderate risk in 3-5 days, 12/08-12/10.
--- NOTE | 2019-12-11 01:59 | Progress Notes ---
DATE: 12/10/2019 SUBJECTIVE: Chart reviewed and the patient interviewed. Also discussed the patient's condition with the staff and reviewed records and labs. The patient continued to be in irritable and angry mood and also is still impulsive and withdrawn and wants to be left alone. The patient also is suspicious and seems to be paranoid. Also during my interview, she seems to be preoccupied and seems to be responding. On the other hand, the patient was trying to answer questions. The patient was complaining of "itching in my arms." The patient also has been compliant with taking his medications with no side effects of medications. ASSESSMENT: The patient is still agitated and psychotic. TREATMENT PLAN: Continue Risperdal 0.5 mg twice a day. Also, continue monitoring his behavior and to follow up closely. [facility]# [id number]
--- NOTE | 2019-12-11 06:58 | Discharge Summary ---
DATE OF DISCHARGE: 12/11/2019 AGE: 69. SEX: Male. PHYSICIAN: Dr. Covington. FINAL DIAGNOSIS AND PRIMARY DIAGNOSIS: Depressive mood disorder, unspecified, with psychotic features. MEDICAL DIAGNOSIS: Hypertension. REASON FOR HOSPITALIZATION: The patient was admitted to the hospital because of increased agitation and irritability with difficulty following directions HOSPITAL COURSE: The patient was agitated and angry in the beginning of first hospitalization. Also, was easily agitated. The patient was started on Risperdal and the dose adjusted to 0.5 mg twice a day. The patient was calmer and less agitated and less irritable. Also, was easier to follow directions. The patient was discharged back to [facility]. PHYSICAL EXAMINATION: The patient was showing no major medical issues while in the hospital. AFTER DISCHARGE PLANS: The patient discharged from the hospital and returned to [facility] with plan to follow him there. EXPECTED OUTCOME AFTER DISCHARGE: Fair if the patient continued to take his psychotropic medications and follow up with discharge plans. [facility]# [id number]
[2019-12-11] MEDS: Multivitamin Tab PO SCH (09:39)
--- NOTE | 2019-12-11 12:45 | Internal Medicine Prog Note ---
Internal Medicine Subjective - Subjective Patient seen and examined:: with staff, chart reviewed Patient is:: awake, verbal, interactive, confused Per staff patient has:: no adverse event, no episodes of fall, tolerating meds Internal Medicine Objective - Physical Exam Vitals and I&O: Vital Signs Temp 97.9 F 12/10/19 06:04 Pulse 82 12/10/19 06:04 Resp 18 12/11/19 08:00 BP 104/61 12/10/19 06:04 Pulse Ox 95 12/10/19 06:04 Intake & Output 12/10/19 12/11/19 12/11/19 18:59 06:59 18:59 Intake Total 1200 120 Balance 1200 120 Intake: Oral 1200 120 Other: # Voids 4 1 # Bowel Movements 1 0 Active Medications: Current Medications Acetaminophen (Tylenol 650mg Supp) 650 mg RC Q6H PRN PRN Reason: Pain (Mild 1-3) Stop: 02/02/20 08:47 Acetaminophen (Tylenol 650mg Supp) 650 mg RC Q6H PRN PRN Reason: Temperature above 101 Stop: 02/02/20 08:48 Acetaminophen (Tylenol) 650 mg PO Q4H PRN PRN Reason: Pain (Mild 1-3) Stop: 02/02/20 13:05 Acetaminophen/Hydrocodone Bitart ([place] 5mg/325mg) 1 tab PO Q4H PRN PRN Reason: Pain (Severe 7-10) Stop: 02/02/20 13:05 Al Hydrox/Mg Hydrox/Simethicone (Maalox) 30 ml PO Q6H PRN PRN Reason: Dyspepsia Stop: 02/02/20 13:05 Albuterol/Ipratropium (Duoneb Neb) 3 ml HHN Q6HR PRN PRN Reason: shortness of breath or wheezin Stop: 02/02/20 13:05 Guaifenesin/Dextromethorphan (Robitussin Dm) 5 ml PO Q6H PRN PRN Reason: Cough Stop: 02/02/20 14:13 Last Admin: 12/05/19 20:42 Dose: 5 ml Lorazepam (Ativan) 0.5 mg PO Q4HR PRN; Protocol PRN Reason: Anxiety Stop: 01/03/20 08:06 Magnesium Hydroxide (Milk Of Magnesia) 30 ml PO HS PRN PRN Reason: Constipation Multivitamins/Vitamin C (Theragran) 1 tab PO DAILY IRAIS Stop: 02/03/20 08:59 Last Admin: 12/11/19 09:39 Dose: 1 tab Risperidone (Risperdal) 0.5 mg PO BID IRAIS; Protocol Stop: 02/02/20 08:59 Last Admin: 12/11/19 09:39 Dose: 0.5 mg Valproate Sodium (Depakene) 250 mg PO BID IRAIS; Protocol Stop: 02/02/20 08:59 Last Admin: 12/11/19 09:39 Dose: 250 mg Zolpidem Tartrate (Ambien) 5 mg PO HS PRN PRN Reason: Insomnia Stop: 02/02/20 08:06 Last Admin: 12/08/19 20:45 Dose: 5 mg General: demented HEENT: NC/AT, PERRLA Neck: Supple Lungs: CTAB Cardiovascular: RRR, Normal S1, Normal S2, with murmur Abdomen: soft, positive bowel sound Extremities: excoriation Internal Medicine Assmt/Plan - Assessment Assessment: ASSESSMENT AND PLAN: Alzheimer dementia, chronic obstructive pulmonary disease, constipation, chronic pain syndrome, anemia, elevated liver function tests, 42 and 57 of AST and ALT respectively, albumin 2.9. - Plan Plan: PLAN: We will provide the patient with bronchodilator treatment as well as laxative. We will provide the patient adequate pain control. Monitor the patient's hemoglobin and hematocrit. We will check the patient's liver function tests. We will provide the patient with good nutrition support. We will continue to follow the patient with Dr. Adria carlisle. Nutritional Asmnt/Malnutr-PDOC - Dietary Evaluation Malnutrition Findings (Please click <Entered> for more info): Nutritional Asmnt/Malnutrition Start: 12/05/19 15: 04 Text: Status: Complete Freq: Protocol: Document 12/05/19 15:04 ALVIN (Rec: 12/05/19 15:08 ALVIN [email or web address]) Nutritional Asmnt/Malnutrition Patient General Information Nutritional Screening High Risk Consult Diagnosis Psychosis Pertinent Medical Hx/Surgical Hx COPD, Chronic pain syndrome, constipation, S/P thyroid surgery Subjective Information Consult: Underweight Pt is a 69-year-old male admitted on 12/04 d/t agitation and psychosis. Pt ate 85-100% lunch and dinner yesterday. Pt has noted constipation and Hx constipation, recommend nurse to encourage adequate fluid intake. Per PATHOLOGY LABORATORY AIDE, pt ate 100% breakfast and lunch today, drank all ensure at both meals . Spoke with pt at time of visit, pt stated people are swollen today and he eats enough. PT was missing front teeth, but tolerating mechanical soft, chopped meals well. Pt was not interested in a nutrition focused physical examination, will F/U in 3-5 days. Educated pt on requesting snacks when he is hungry, pt was overall a little confused. Will continue to monitor pt PO intake and weight trends. Anthropometrics HT: 58 WT: 118 LB (53.64 kg) BMI: 18.03 (Underweight) GI/ Skin Integrity GI: WNL, Soft, Flat, Constipation BM: Not Noted, noted constipation I/O: 240/1 (+239) Skin: Pt refused skin assessment 12/04, 12/05 Adán: 19 Diet Order: Mechanical Soft, Ensure Enlive TID, No Lactose Estimated Energy Needs: ( Underweight, CBW) 2840-0474 kcals (30-35 kcals/ kg) 60-70g Pro (1.2-1.3 g/kg) 8019-2498 ml (30-35 ml/kg) Current Diet Order/ Nutrition Support Mechanical Soft, Ensure Enlive TID, No Lactose Pertinent Medications Maalox (PRN), Albuterol (PRN), MOM (PRN), Theragran Pertinent Labs 12/04: A1c 5.1%, Alk Phos 281, AST 42, Alb 2.9 Nutritional Hx/Data Height 1.73 m Height (Calculated Centimeters) 172.7 Current Weight (lbs) 53.796 kg Weight (Calculated Kilograms) 53.8 Weight (Calculated Grams) 71343.1 Body Mass Index (BMI) 18.0 Weight Status Underweight GI Symptoms Last BM Not Noted, noted constipation Skin Integrity/Comment: Skin: Pt refused skin assessment 12/04, 12/05 Adán: 19 Current %PO Good (75-100%) Estimated Nutritional Goals BEE in Kcals: Using Current wt Calories/Kcals/Kg 30-35 Kcals Calculated 8115-7088 Protein: Using Current wt Protein g/k.2-1.3 Protein Calculated 60-70 Fluid: ml 8372-5381 ml (30-35 ml/kg) Nutritional Problem 1. Problem Problem Underweight Etiology r/t consistent energy underconsumption Signs/Symptoms: aeb BMI <18.5 (18.03). Malnutrition Related to Morbid Obesity Malnutrition related to morbid obesity No Intervention/Recommendation Comments 1.Continue Mechanical Soft, Ensure Enlive TID, No Lactose diet as tolerated. 2.Nurse to encourage adequate fluid intake d/t noted constipation. Expected Outcomes/Goals Expected Outcomes/Goals 1.PO intake to meet 75% of estimated nutritional needs. 2.Monitor PO intake, wt, nutrition related labs, and skin integrity. 3.Gradual weight gain (0.5-1.0 LB/week) trending toward IBW preferred. 4.F/U as moderate risk in 3-5 days, 12/08-12/10.
== END 2019-12-11 15:55 | DRG 885 ==
LOC: GERO 12-04 07:24
PROVIDERS: ADMIT Psychiatry & Neurology Psychiatry; ATTEND Psychiatry & Neurology Psychiatry
DX: F32.3 Major depressive disorder, single episode, severe with psychotic features (principal); G30.9 Alzheimer's disease, unspecified; F02.80 Dementia in other diseases classified elsewhere, unspecified severity, without behavioral disturbance, psychotic disturbance, mood disturbance, and anxiety; F29 Unspecified psychosis not due to a substance or known physiological condition; J44.9 Chronic obstructive pulmonary disease, unspecified; G89.4 Chronic pain syndrome; D64.9 Anemia, unspecified; F17.210 Nicotine dependence, cigarettes, uncomplicated; K59.00 Constipation, unspecified; I10 Essential (primary) hypertension; Z88.5 Allergy status to narcotic agent; Z79.51 Long term (current) use of inhaled steroids; Z79.899 Other long term (current) drug therapy
CPT/HCPCS: 83036-90

== ENCOUNTER 2020-01-23 10:15 | Inpatient (IN) | payer MEDICARE, MEDICAID ==
[2020-01-23 12:12] VITALS: BP 130/72
[2020-01-23] MEDS ORDERED: Maalox 30 mL Cup PO PRN (13:05)
[2020-01-23] MEDS ORDERED: Magnesium Hydroxide (MOM) 30 mL UDC PO PRN (13:05)
[2020-01-23] MEDS ORDERED: Albuterol Nebulizer 2.5mg/3mL HHN PRN (13:05)
--- NOTE | 2020-01-23 13:40 | Consultation ---
DATE OF CONSULTATION: 01/23/2020 REASON FOR CONSULTATION: Medical management and clearance and the patient admitted to inpatient unit. HISTORY OF PRESENT ILLNESS: This is a 69-year-old -[place]el[place] male with history of COPD, chronic pain syndrome, constipation, admitted under service of Dr. Davis. The patient denies any fever, chills, weight loss or chest pain. The patient is a poor historian. The patient was cleared medically from [facility]. PAST MEDICAL HISTORY: As mentioned in history of present illness. PAST SURGICAL HISTORY: Status post thyroid surgery in the past. ALLERGIES: CODEINE. MEDICATIONS: Albuterol, guaifenesin, morphine, Colace, Depakote, risperidone, Ambien, lorazepam. FAMILY HISTORY: Denies diabetes or coronary artery disease. SOCIAL HISTORY: The patient smokes a little bit, drinks a little bit and no intravenous drug use or abuse marijuana. Used to work in postal office. The patient is single, with 1 child. The patient lives in a care home. REVIEW OF SYSTEMS: GENERAL: The patient denies exertional symptoms, agitated at times, per nursing. HEENT: No blurred vision or pain. LUNGS: No diagnosis of asthma. The patient with COPD. HEART: No hypertension or coronary artery disease. ABDOMEN: No nausea, vomiting or pain. GENITOURINARY: The patient denies any increased frequency, dysuria or hematuria. NEUROLOGIC: No headache, seizure or syncope. PSYCHIATRIC: As stated above. PHYSICAL EXAMINATION: VITAL SIGNS: Blood pressure 130/73, respirations 18, pulse 86, temperature 98.2. GENERAL: Elderly male, appears stated age, thin built. The patient was seen with a mini mental staff. NECK: Supple. LUNGS: Decreased breath sounds without rales or rhonchi. HEART: Regular rate and rhythm with a faint systolic ejection murmur. ABDOMEN: Soft, globular. EXTREMITIES: Excoriations. NEUROLOGIC: Limited, please refer to Dr. Davis's dictation for mental assessment. Cranial nerve exam: Cranial nerve 1, the patient is able to smell alcohol swab. Cranial nerve 2, able to read ____ page. Cranial nerve 3, able to move eyeballs upward and outward. Cranial nerve 4, able to move eyeballs inward and downward. Cranial nerve 5, able to clench teeth, has normal sensation and forehead. Cranial nerve 6, able to move eyes laterally on both sides. Cranial nerve 7, able to move eyebrows upward on both sides. Cranial nerve 8, able to hear finger rubs on both sides. Cranial nerve 9, this was offered, but the patient refused. Cranial nerve 10, this was offered, but the patient refused. Cranial nerve 11, this was offered, but the patient refused. Cranial nerve 12, this was offered, but the patient refused. Motor and sensory were equal. Gait is within normal range. LABORATORY DATA: WBC was done a month ago. WBC 6, hemoglobin 13, platelets 244, AST and ALT 42 and 57. ASSESSMENT AND PLAN: Alzheimer's dementia, history of anemia, dysphagia, chronic pain syndrome, chronic low back pain, elevated liver function tests, chronic obstructive pulmonary disease, constipation. We will review the patient's medication. We will place the patient on albuterol and Atrovent as needed basis. We will monitor hemoglobin and hematocrit. We will place the patient on aspiration precaution. We will continue to monitor the patient closely with you, Dr. Davis. JOB# [id number]
--- NOTE | 2020-01-23 14:43 | Psychiatric Evaluation ---
DATE OF SERVICE: 01/23/2020 JUSTIFICATION FOR HOSPITALIZATION: Aggressive behaviors, confusion. HISTORY OF PRESENT ILLNESS: A 69-year-old male with history of hospitalization here in the past. Confused, uncooperative, impulsive, aggressive, physically aggressive towards staff at [facility], refusing most things, AO to name only. Otherwise, not really answering any questions, agitated, yelling. PAST PSYCHIATRIC HISTORY: Hospitalization in the past. The patient was seen previously this year, left with a diagnosis of depression, unspecified, with psychosis. MEDICAL: Please see full H and P. MEDICATIONS: Reviewed. MENTAL STATUS EXAMINATION: Stated age. Fair eye contact. Speech within normal limits, really hard to understand. Seems disoriented on exam, angry, upset, mad, difficult to fully assess thought content because he is not really wanting to speak with me. Staff noting he does answer some questions, seems to know what is going on. Poor insight, poor impulse control. PROVISIONAL DIAGNOSES: Mood, unspecified; anxiety, unspecified; psychosis, unspecified. MEDICAL: Please see full H and P. TREATMENT PLAN: Includes group as well as milieu therapy, adjustment of medications. CONDITIONS FOR DISCHARGE: Improved mood, improved affect, better control of any aggressive behaviors, improved mood. JOB# [id number]
[2020-01-24] MEDS: Multivitamin Tab PO SCH (08:23)
--- NOTE | 2020-01-24 21:30 | Internal Medicine Prog Note ---
Internal Medicine Subjective - Subjective Patient seen and examined:: with staff, chart reviewed Patient is:: awake, verbal, interactive Per staff patient has:: no adverse event, no episodes of fall, poor oral intake , tolerating meds Internal Medicine Objective - Physical Exam Vitals and I&O: Vital Signs Temp 98.8 F 01/24/20 19:56 Pulse 89 01/24/20 19:56 Resp 20 01/24/20 19:56 BP 115/58 01/24/20 19:56 Pulse Ox 97 01/24/20 19:56 Intake & Output 01/24/20 01/24/20 01/25/20 06:59 18:59 06:59 Intake Total 280 900 60 Balance 280 900 60 Intake: Oral 280 900 60 Other: # Voids 1 3 1 # Bowel Movements 0 1 0 Active Medications: Current Medications Acetaminophen (Tylenol) 650 mg PO Q4H PRN PRN Reason: Pain (Mild 1-3) Stop: 03/23/20 13:04 Al Hydrox/Mg Hydrox/Simethicone (Maalox) 30 ml PO Q6H PRN PRN Reason: Dyspepsia Stop: 03/23/20 13:04 Albuterol Sulfate (Albuterol 2.5mg/3ml Neb Ud) 2.5 mg HHN Q6HR PRN PRN Reason: SOB DUE TO Cough Stop: 03/23/20 13:04 Bisacodyl (Dulcolax 10 Mg Supp) 10 mg RC DAILY PRN PRN Reason: Constipation Stop: 03/23/20 13:04 Guaifenesin/Dextromethorphan (Robitussin Dm) 5 ml PO Q6H PRN PRN Reason: Cough Stop: 03/23/20 13:04 Hyoscyamine Sulfate (Levsin) 0.125 mg PO Q6HR PRN PRN Reason: GI tract spasms. Lorazepam (Ativan) 0.5 mg PO Q4HR PRN; Protocol PRN Reason: Anxiety Stop: 03/23/20 13:04 Magnesium Hydroxide (Milk Of Magnesia) 30 ml PO HS PRN PRN Reason: Constipation Stop: 03/23/20 13:04 Multivitamins/Vitamin C (Theragran) 1 tab PO DAILY IRAIS Stop: 03/24/20 08:59 Last Admin: 01/24/20 08:23 Dose: 1 tab Quetiapine Fumarate (Seroquel) 25 mg PO BID IRAIS; Protocol Stop: 03/23/20 16:59 Last Admin: 01/24/20 16:31 Dose: 25 mg Zolpidem Tartrate (Ambien) 5 mg PO HS PRN PRN Reason: Insomnia Stop: 03/23/20 13:04 Last Admin: 01/24/20 21:08 Dose: 5 mg General: demented HEENT: NC/AT, PERRLA Neck: Supple, No JVD Lungs: CTAB Cardiovascular: RRR, Normal S1, Normal S2, with murmur Abdomen: soft, non-distended, positive bowel sound Extremities: excoriation Neurological: no change Internal Medicine Assmt/Plan - Assessment Assessment: ASSESSMENT AND PLAN: Alzheimer's dementia, history of anemia, dysphagia, chronic pain syndrome, chronic low back pain, elevated liver function tests, chronic obstructive pulmonary disease, constipation. - Plan Plan: PLAN: We will review the patient's medication. We will place the patient on albuterol and Atrovent as needed basis. We will monitor hemoglobin and hematocrit. We will place the patient on aspiration precaution. We will continue to monitor the patient closely with youDr. Davis.
--- NOTE | 2020-01-24 23:23 | Progress Notes ---
DATE: 01/24/2020 Covering for Jarocho Davis M.D. SUBJECTIVE: The patient was interviewed. Case was discussed with staff. Chart and records were reviewed. Per the staff, the patient has been psychotic, talking to unseen others, disorganized with very poor insight into his condition and not able to communicate a simple plan for self-care and also needing staff redirection. The patient is interviewed in the day room. The patient is very focused on his toenail, which appears to be intact with no issues. The patient is mumbling incoherently. He has no plan for self-care. He has no insight into why he is in the hospital. The patient also is talking to unseen others. MENTAL STATUS EXAMINATION: The patient appears his stated age, unkempt, appearing, fair eye contact. Speech is normal. Mood and affect appear to be labile. Thought process is disorganized. Unable to assess for suicidal or homicidal thoughts due to his poor cooperation. The patient appears to be responding to internal stimuli, also appears to be somewhat bizarre and paranoid. Alert and oriented x 1. Insight, judgment and impulse control appear to be poor. ASSESSMENT: This is a 69-year-old male, admitted to [facility] since 01/23/2020 yesterday after becoming increasingly confused, agitated and aggressive towards staff at his nursing facility. The patient at this time continues to be psychotic, responding to internal stimuli. He has poor insight into his condition. He has a poor ability to cooperate with the interview and he has no plan for self-care. PLAN: We will continue the patient's acute hospitalization. Continue medications as prescribed. We will encourage the patient to verbalize his needs and participate in group therapy. JOB# [id number]
[2020-01-25] MEDS: Multivitamin Tab PO SCH (08:35)
[2020-01-25] MEDS: Guaifenesin DM 10 ML UDC PO PRN (10:11)
--- NOTE | 2020-01-25 12:32 | Internal Medicine Prog Note ---
Internal Medicine Subjective - Subjective Patient seen and examined:: with staff, chart reviewed Patient is:: awake, verbal, interactive Per staff patient has:: no adverse event, no episodes of fall, poor oral intake , tolerating meds Internal Medicine Objective - Physical Exam Vitals and I&O: Vital Signs Temp 98.3 F 01/25/20 06:42 Pulse 83 01/25/20 06:42 Resp 20 01/25/20 06:42 BP 122/80 01/25/20 06:42 Pulse Ox 97 01/25/20 06:42 Intake & Output 01/24/20 01/25/20 01/25/20 18:59 06:59 18:59 Intake Total 900 180 Balance 900 180 Intake: Oral 900 180 Other: # Voids 3 1 # Bowel Movements 1 0 Active Medications: Current Medications Acetaminophen (Tylenol) 650 mg PO Q4H PRN PRN Reason: Pain (Mild 1-3) Stop: 03/23/20 13:04 Last Admin: 01/25/20 10:02 Dose: 650 mg Al Hydrox/Mg Hydrox/Simethicone (Maalox) 30 ml PO Q6H PRN PRN Reason: Dyspepsia Stop: 03/23/20 13:04 Albuterol Sulfate (Albuterol 2.5mg/3ml Neb Ud) 2.5 mg HHN Q6HR PRN PRN Reason: SOB DUE TO Cough Stop: 03/23/20 13:04 Bisacodyl (Dulcolax 10 Mg Supp) 10 mg RC DAILY PRN PRN Reason: Constipation Stop: 03/23/20 13:04 Guaifenesin/Dextromethorphan (Robitussin Dm) 5 ml PO Q6H PRN PRN Reason: Cough Stop: 03/23/20 13:04 Last Admin: 01/25/20 10:11 Dose: 5 ml Hyoscyamine Sulfate (Levsin) 0.125 mg PO Q6HR PRN PRN Reason: GI tract spasms. Lorazepam (Ativan) 0.5 mg PO Q4HR PRN; Protocol PRN Reason: Anxiety Stop: 03/23/20 13:04 Magnesium Hydroxide (Milk Of Magnesia) 30 ml PO HS PRN PRN Reason: Constipation Stop: 03/23/20 13:04 Multivitamins/Vitamin C (Theragran) 1 tab PO DAILY IRAIS Stop: 03/24/20 08:59 Last Admin: 01/25/20 08:35 Dose: 1 tab Quetiapine Fumarate (Seroquel) 25 mg PO BID IRAIS; Protocol Stop: 03/23/20 16:59 Last Admin: 01/25/20 08:36 Dose: 25 mg Zolpidem Tartrate (Ambien) 5 mg PO HS PRN PRN Reason: Insomnia Stop: 03/23/20 13:04 Last Admin: 01/24/20 21:08 Dose: 5 mg General: demented HEENT: NC/AT, PERRLA Neck: Supple, No JVD Lungs: CTAB Cardiovascular: RRR, Normal S1, Normal S2, with murmur Abdomen: soft, non-distended, positive bowel sound Extremities: excoriation Neurological: no change Internal Medicine Assmt/Plan - Assessment Assessment: ASSESSMENT AND PLAN: Alzheimer's dementia, history of anemia, dysphagia, chronic pain syndrome, chronic low back pain, elevated liver function tests, chronic obstructive pulmonary disease, constipation. - Plan Plan: PLAN: We will review the patient's medication. We will place the patient on albuterol and Atrovent as needed basis. We will monitor hemoglobin and hematocrit. We will place the patient on aspiration precaution. We will continue to monitor the patient closely with Dr. Susan carlisle.
--- NOTE | 2020-01-25 23:51 | Progress Notes ---
DATE: 01/25/2020 COVERING FOR: Dr. Jarocho Davis. SUBJECTIVE: The patient was interviewed. Case was discussed with staff. Chart and records were reviewed. Per the staff, the patient has been pacing the hallway, has been more independent with his ADLs, but remains disorganized and responding heavily to internal stimuli. The patient was visited at bedside. He reports no side effects to his medications. He otherwise is disorganized, incoherent, disheveled-appearing; no plan for self-care and poor insight into his condition. MENTAL STATUS EXAMINATION: The patient appears his stated age, lying in his hospital bed, disheveled-appearing, fair eye contact. Speech is mumbled and soft. Mood and affect appear to be labile; thought process disorganized, unable to assess for suicidal or homicidal thoughts. The patient is responding to internal stimuli. He also is somewhat paranoid of others. Alert and oriented x 1. Insight, judgment and impulse control appear to be poor. ASSESSMENT: A 69-year-old male admitted to [facility] since 01/23/2020 after becoming increasingly confused, agitated and aggressive towards staff at his facility. The patient at this time continues with acute psychosis as evidence of him responding to internal stimuli, mumbling to himself, paranoia of others. He has poor insight into his condition. He has poor self-care; he has no plan for self-care at this time. PLAN: Continue the patient on acute hospitalization. Continue medications as prescribed. Encourage the patient to verbalize his needs, and to participate in group and milieu therapy. JOB# [id number]
[2020-01-26] MEDS: Multivitamin Tab PO SCH (08:32)
[2020-01-26] MEDS: Guaifenesin DM 10 ML UDC PO PRN ×2 (11:37→17:24)
--- NOTE | 2020-01-26 12:53 | Internal Medicine Prog Note ---
Internal Medicine Subjective - Subjective Patient seen and examined:: with staff, chart reviewed Patient is:: awake, verbal, interactive Per staff patient has:: no adverse event, no episodes of fall, poor oral intake , tolerating meds Internal Medicine Objective - Physical Exam Vitals and I&O: Vital Signs Temp 98.3 F 01/26/20 05:58 Pulse 83 01/26/20 05:58 Resp 20 01/26/20 05:58 BP 119/57 01/26/20 05:58 Pulse Ox 92 01/26/20 05:58 Intake & Output 01/25/20 01/26/20 01/26/20 18:59 06:59 18:59 Intake Total 900 400 Balance 900 400 Intake: Oral 900 400 Other: # Voids 1 # Bowel Movements 1 0 Active Medications: Current Medications Acetaminophen (Tylenol) 650 mg PO Q4H PRN PRN Reason: Pain (Mild 1-3) Stop: 03/23/20 13:04 Last Admin: 01/25/20 10:02 Dose: 650 mg Al Hydrox/Mg Hydrox/Simethicone (Maalox) 30 ml PO Q6H PRN PRN Reason: Dyspepsia Stop: 03/23/20 13:04 Albuterol Sulfate (Albuterol 2.5mg/3ml Neb Ud) 2.5 mg HHN Q6HR PRN PRN Reason: SOB DUE TO Cough Stop: 03/23/20 13:04 Bisacodyl (Dulcolax 10 Mg Supp) 10 mg RC DAILY PRN PRN Reason: Constipation Stop: 03/23/20 13:04 Guaifenesin/Dextromethorphan (Robitussin Dm) 5 ml PO Q6H PRN PRN Reason: Cough Stop: 03/23/20 13:04 Last Admin: 01/26/20 11:37 Dose: 5 ml Hyoscyamine Sulfate (Levsin) 0.125 mg PO Q6HR PRN PRN Reason: GI tract spasms. Lorazepam (Ativan) 0.5 mg PO Q4HR PRN; Protocol PRN Reason: Anxiety Stop: 03/23/20 13:04 Last Admin: 01/25/20 16:29 Dose: 0.5 mg Magnesium Hydroxide (Milk Of Magnesia) 30 ml PO HS PRN PRN Reason: Constipation Stop: 03/23/20 13:04 Multivitamins/Vitamin C (Theragran) 1 tab PO DAILY IRAIS Stop: 03/24/20 08:59 Last Admin: 01/26/20 08:32 Dose: 1 tab Quetiapine Fumarate (Seroquel) 25 mg PO BID IRAIS; Protocol Stop: 03/23/20 16:59 Last Admin: 01/26/20 08:32 Dose: 25 mg Zolpidem Tartrate (Ambien) 5 mg PO HS PRN PRN Reason: Insomnia Stop: 03/23/20 13:04 Last Admin: 01/25/20 21:10 Dose: 5 mg General: demented HEENT: NC/AT, PERRLA Neck: Supple, No JVD Lungs: CTAB Cardiovascular: RRR, Normal S1, Normal S2, with murmur Abdomen: soft, non-distended, positive bowel sound Extremities: excoriation Neurological: no change Internal Medicine Assmt/Plan - Assessment Assessment: ASSESSMENT AND PLAN: Alzheimer's dementia, history of anemia, dysphagia, chronic pain syndrome, chronic low back pain, elevated liver function tests, chronic obstructive pulmonary disease, constipation. - Plan Plan: PLAN: We will review the patient's medication. We will place the patient on albuterol and Atrovent as needed basis. We will monitor hemoglobin and hematocrit. We will place the patient on aspiration precaution. We will continue to monitor the patient closely with Dr. Susan carlisle.
--- NOTE | 2020-01-26 13:28 | Progress Notes ---
DATE: 01/26/2020 SUBJECTIVE: A 69-year-old -[place]ian male in the hospital, pacing the hallways, somewhat more independent, extremely confused, mumbling to self, disorganized, not really making much sense on exam. The patient believes that he is here to get his toenails cut. He believes he is here because "a girl put her foot in the way" very ruminative on feet and toenails, conversation keeps coming back to his toenails and other people's feet, disorganized, bizarre, disheveled, unkempt, hard to really have much of a conversation with him. Time was spent speaking with the patient, nursing notes were reviewed. Did not sleep very well. Medications were reviewed. Vitals were reviewed. Labs were reviewed. I evaluated him for any medication side effects, none noted. No EPS, no akathisia, certainly no oversedation. Vitals: 103/57 blood pressure, pulse of 80. MENTAL STATUS EXAMINATION: Disheveled, unkempt, fair eye contact, rambling, talking to self, not making much sense, ruminative about his feet and not sure where he is going to go. PLAN: We will continue inpatient monitoring. The patient remains acute psychotic. I will be titrating his dosing of Seroquel. JOB# [id number]
[2020-01-27] MEDS: Multivitamin Tab PO SCH (08:28)
--- NOTE | 2020-01-27 12:32 | Internal Medicine Prog Note ---
Internal Medicine Subjective - Subjective Patient seen and examined:: with staff, chart reviewed Patient is:: awake, verbal, interactive Per staff patient has:: no adverse event, no episodes of fall, poor oral intake , tolerating meds Internal Medicine Objective - Physical Exam Vitals and I&O: Vital Signs Temp 0 F 01/27/20 05:50 Pulse 80 01/26/20 20:56 Resp 18 01/27/20 08:00 BP 101/55 01/26/20 20:56 Pulse Ox 98 01/26/20 20:56 Intake & Output 01/26/20 01/27/20 01/27/20 18:59 06:59 18:59 Intake Total 1300 120 Balance 1300 120 Intake: Oral 1300 120 Other: # Voids 3 3 # Bowel Movements 0 0 Active Medications: Current Medications Acetaminophen (Tylenol) 650 mg PO Q4H PRN PRN Reason: Pain (Mild 1-3) Stop: 03/23/20 13:04 Last Admin: 01/25/20 10:02 Dose: 650 mg Al Hydrox/Mg Hydrox/Simethicone (Maalox) 30 ml PO Q6H PRN PRN Reason: Dyspepsia Stop: 03/23/20 13:04 Albuterol Sulfate (Albuterol 2.5mg/3ml Neb Ud) 2.5 mg HHN Q6HR PRN PRN Reason: SOB DUE TO Cough Stop: 03/23/20 13:04 Bisacodyl (Dulcolax 10 Mg Supp) 10 mg RC DAILY PRN PRN Reason: Constipation Stop: 03/23/20 13:04 Guaifenesin/Dextromethorphan (Robitussin Dm) 5 ml PO Q6H PRN PRN Reason: Cough Stop: 03/23/20 13:04 Last Admin: 01/26/20 17:24 Dose: 5 ml Hyoscyamine Sulfate (Levsin) 0.125 mg PO Q6HR PRN PRN Reason: GI tract spasms. Lorazepam (Ativan) 0.5 mg PO Q4HR PRN; Protocol PRN Reason: Anxiety Stop: 03/23/20 13:04 Last Admin: 01/25/20 16:29 Dose: 0.5 mg Magnesium Hydroxide (Milk Of Magnesia) 30 ml PO HS PRN PRN Reason: Constipation Stop: 03/23/20 13:04 Last Admin: 01/26/20 21:09 Dose: 30 ml Multivitamins/Vitamin C (Theragran) 1 tab PO DAILY IRAIS Stop: 03/24/20 08:59 Last Admin: 01/27/20 08:28 Dose: 1 tab Quetiapine Fumarate 50 mg/ (Quetiapine Fumarate 25 mg) 75 mg PO HS IRAIS Stop: 03/26/20 20:59 Last Admin: 01/26/20 20:49 Dose: 75 mg Zolpidem Tartrate (Ambien) 5 mg PO HS PRN PRN Reason: Insomnia Stop: 03/23/20 13:04 Last Admin: 01/26/20 20:49 Dose: 5 mg General: demented HEENT: NC/AT, PERRLA Neck: Supple, No JVD Lungs: CTAB Cardiovascular: RRR, Normal S1, Normal S2, with murmur Abdomen: soft, non-distended, positive bowel sound Extremities: excoriation Neurological: no change Internal Medicine Assmt/Plan - Assessment Assessment: ASSESSMENT AND PLAN: Alzheimer's dementia, history of anemia, dysphagia, chronic pain syndrome, chronic low back pain, elevated liver function tests, chronic obstructive pulmonary disease, constipation. - Plan Plan: PLAN: We will review the patient's medication. We will place the patient on albuterol and Atrovent as needed basis. We will monitor hemoglobin and hematocrit. We will place the patient on aspiration precaution. We will continue to monitor the patient closely with you, Dr. Davis.
--- NOTE | 2020-01-27 20:08 | Progress Notes ---
DATE: 01/27/2020 Case was discussed with staff of the patient, reviewed records. This is a 69-year-old male who was admitted on 01/23/2020, with a history of prior hospitalization and confused, uncooperative, impulsive, angry, irritable, needing redirection, refusing to answer questions. He came from [facility], oriented to name only. . He was hospitalized here. The patient continues to have poor insight. Continues to be unpredictable, easily agitated, hard to redirect, confused, mumbling to himself, disorganized, not making sense. He continues to look disheveled, unkempt. , talking to himself, not making much sense, unable to make safe plan for self-care or participate in meaningful conversation. No side effects with the medication, no sedation, no nausea, no extrapyramidal symptoms. He is currently on Seroquel 75 mg at bedtime with no side effects. We will continue outpatient group therapy, milieu therapy, adjust medication as needed. JOB# [id number] [facility]
[2020-01-28] MEDS: Multivitamin Tab PO SCH (08:38)
--- NOTE | 2020-01-28 12:56 | Internal Medicine Prog Note ---
Internal Medicine Subjective - Subjective Patient seen and examined:: with staff, chart reviewed Patient is:: awake, verbal, interactive Per staff patient has:: no adverse event, no episodes of fall, poor oral intake , tolerating meds Internal Medicine Objective - Physical Exam Vitals and I&O: Vital Signs Temp 97.7 F 01/28/20 05:18 Pulse 74 01/28/20 05:18 Resp 20 01/28/20 07:36 BP 120/62 01/28/20 05:18 Pulse Ox 98 01/28/20 05:18 Intake & Output 01/27/20 01/28/20 01/28/20 18:59 06:59 18:59 Intake Total 120 Balance 120 Intake: Oral 120 Other: # Voids 2 3 # Bowel Movements 1 0 Active Medications: Current Medications Acetaminophen (Tylenol) 650 mg PO Q4H PRN PRN Reason: Pain (Mild 1-3) Stop: 03/23/20 13:04 Last Admin: 01/25/20 10:02 Dose: 650 mg Al Hydrox/Mg Hydrox/Simethicone (Maalox) 30 ml PO Q6H PRN PRN Reason: Dyspepsia Stop: 03/23/20 13:04 Albuterol Sulfate (Albuterol 2.5mg/3ml Neb Ud) 2.5 mg HHN Q6HR PRN PRN Reason: SOB DUE TO Cough Stop: 03/23/20 13:04 Bisacodyl (Dulcolax 10 Mg Supp) 10 mg RC DAILY PRN PRN Reason: IF MOM IS INEFFECTIVE Stop: 03/23/20 13:04 Guaifenesin/Dextromethorphan (Robitussin Dm) 5 ml PO Q6H PRN PRN Reason: Cough Stop: 03/23/20 13:04 Last Admin: 01/26/20 17:24 Dose: 5 ml Hyoscyamine Sulfate (Levsin) 0.125 mg PO Q6HR PRN PRN Reason: GI tract spasms. Lorazepam (Ativan) 0.5 mg PO Q4HR PRN; Protocol PRN Reason: Anxiety Stop: 03/23/20 13:04 Last Admin: 01/25/20 16:29 Dose: 0.5 mg Magnesium Hydroxide (Milk Of Magnesia) 30 ml PO HS PRN PRN Reason: Constipation Stop: 03/23/20 13:04 Last Admin: 01/26/20 21:09 Dose: 30 ml Multivitamins/Vitamin C (Theragran) 1 tab PO DAILY IRAIS Stop: 03/24/20 08:59 Last Admin: 01/28/20 08:38 Dose: 1 tab Quetiapine Fumarate (Seroquel) 100 mg PO HS IRAIS Stop: 03/28/20 20:59 Zolpidem Tartrate (Ambien) 5 mg PO HS PRN PRN Reason: Insomnia Stop: 03/23/20 13:04 Last Admin: 01/26/20 20:49 Dose: 5 mg General: demented HEENT: NC/AT, PERRLA Neck: Supple, No JVD Lungs: CTAB Cardiovascular: RRR, Normal S1, Normal S2, with murmur Abdomen: soft, non-distended, positive bowel sound Extremities: excoriation Neurological: no change Internal Medicine Assmt/Plan - Assessment Assessment: ASSESSMENT AND PLAN: Alzheimer's dementia, history of anemia, dysphagia, chronic pain syndrome, chronic low back pain, elevated liver function tests, chronic obstructive pulmonary disease, constipation. - Plan Plan: PLAN: We will review the patient's medication. We will place the patient on albuterol and Atrovent as needed basis. We will monitor hemoglobin and hematocrit. We will place the patient on aspiration precaution. We will continue to monitor the patient closely with Dr. Susan carlisle.
--- NOTE | 2020-01-28 16:12 | Progress Notes ---
DATE: 01/28/2020 SUBJECTIVE: A 69-year-old male, currently in the hospital, history of prior hospitalizations, confusion, poor impulse control, anger, irritability, needing redirection, coming from [facility], very confused, disoriented, easily agitated, hard to redirect, essentially refusing to speak with me today, just answering a few questions, his name, otherwise preoccupied, paranoid, withdrawn, hostile to staff, threatening at times. The patient is noting that he has different names and is paranoid about other people knowing his names. Apparently, the patient has a conservator. Nursing notes were reviewed. Medications were reviewed. VITAL SIGNS: Blood pressure 120/62, pulse of 74. I evaluated him for any medication side effects. None noted at this time. No EPS. No oversedation. No akathisia. MENTAL STATUS EXAMINATION: Stated age, disheveled, fair eye contact, confused, disoriented, somewhat paranoid appearing, seems to be responding to internal stimuli. PLAN: We will continue inpatient monitoring, ongoing symptoms, safety concerns. We will increase dosing of Seroquel. JOB# [id number]
[2020-01-29] MEDS: Multivitamin Tab PO SCH (08:41)
--- NOTE | 2020-01-29 12:48 | Progress Notes ---
DATE: 01/29/2020 SUBJECTIVE: A 69-year-old male, currently in the hospital, prior hospitalizations, confusion, very poor impulse control. Staff noting ongoing behaviors, acting out behaviors, slept for about 8 hours, refusing to sign some paperwork, confused, talking to himself, isolative, suspicious, still paranoid, believing staff is reading his mind, needing a higher level of prompting, redirection, got agitated close with the staff, irritable. Staff almost called me for emergency medications, but they were finally able to redirect him. As noted, fair sleep and appetite, ongoing symptoms, safety concerns. Medications were reviewed. Vitals were reviewed. Labs were reviewed. Blood pressure 136/74, pulse of 67. Evaluated for medication side effects, none noted. MENTAL STATUS: Disheveled, unkempt, mumbling to self, disoriented, gets loud at times, paranoid. DIAGNOSES: Unchanged. PLAN: Difficult case. Difficult to control symptoms. Some resistance thus far to antidepressants. We will continue to titrate dosing of medications, increased dosing of Seroquel. JOB# [id number]
--- NOTE | 2020-01-29 13:06 | Internal Medicine Prog Note ---
Internal Medicine Subjective - Subjective Patient seen and examined:: with staff, chart reviewed Patient is:: awake, verbal, interactive Per staff patient has:: no adverse event, no episodes of fall, poor oral intake , tolerating meds Internal Medicine Objective - Physical Exam Vitals and I&O: Vital Signs Temp 98.2 F 01/29/20 06:13 Pulse 67 01/29/20 06:13 Resp 18 01/29/20 08:00 BP 136/74 01/29/20 06:13 Pulse Ox 98 01/29/20 06:13 Intake & Output 01/28/20 01/29/20 01/29/20 18:59 06:59 18:59 Intake Total 900 240 Balance 900 240 Intake: Oral 900 240 Other: # Voids 3 2 # Bowel Movements 1 0 Active Medications: Current Medications Acetaminophen (Tylenol) 650 mg PO Q4H PRN PRN Reason: Pain (Mild 1-3) Stop: 03/23/20 13:04 Last Admin: 01/25/20 10:02 Dose: 650 mg Al Hydrox/Mg Hydrox/Simethicone (Maalox) 30 ml PO Q6H PRN PRN Reason: Dyspepsia Stop: 03/23/20 13:04 Albuterol Sulfate (Albuterol 2.5mg/3ml Neb Ud) 2.5 mg HHN Q6HR PRN PRN Reason: SOB DUE TO Cough Stop: 03/23/20 13:04 Bisacodyl (Dulcolax 10 Mg Supp) 10 mg RC DAILY PRN PRN Reason: IF MOM IS INEFFECTIVE Stop: 03/23/20 13:04 Guaifenesin/Dextromethorphan (Robitussin Dm) 5 ml PO Q6H PRN PRN Reason: Cough Stop: 03/23/20 13:04 Last Admin: 01/26/20 17:24 Dose: 5 ml Hyoscyamine Sulfate (Levsin) 0.125 mg PO Q6HR PRN PRN Reason: GI tract spasms. Lorazepam (Ativan) 0.5 mg PO Q4HR PRN; Protocol PRN Reason: Anxiety Stop: 03/23/20 13:04 Last Admin: 01/25/20 16:29 Dose: 0.5 mg Magnesium Hydroxide (Milk Of Magnesia) 30 ml PO HS PRN PRN Reason: Constipation Stop: 03/23/20 13:04 Last Admin: 01/26/20 21:09 Dose: 30 ml Multivitamins/Vitamin C (Theragran) 1 tab PO DAILY IRAIS Stop: 03/24/20 08:59 Last Admin: 01/29/20 08:41 Dose: 1 tab Quetiapine Fumarate 100 mg/ (Quetiapine Fumarate 50 mg) 150 mg PO HS IRAIS Stop: 03/29/20 20:59 Zolpidem Tartrate (Ambien) 5 mg PO HS PRN PRN Reason: Insomnia Stop: 03/23/20 13:04 Last Admin: 01/26/20 20:49 Dose: 5 mg General: demented HEENT: NC/AT, PERRLA Neck: Supple, No JVD Lungs: CTAB Cardiovascular: RRR, Normal S1, Normal S2, with murmur Abdomen: soft, non-distended, positive bowel sound Extremities: excoriation Neurological: no change Internal Medicine Assmt/Plan - Assessment Assessment: ASSESSMENT AND PLAN: Alzheimer's dementia, history of anemia, dysphagia, chronic pain syndrome, chronic low back pain, elevated liver function tests, chronic obstructive pulmonary disease, constipation. - Plan Plan: PLAN: We will review the patient's medication. We will place the patient on albuterol and Atrovent as needed basis. We will monitor hemoglobin and hematocrit. We will place the patient on aspiration precaution. We will continue to monitor the patient closely with Dr. Susan carlisle.
[2020-01-30] MEDS: Multivitamin Tab PO SCH (09:23)
--- NOTE | 2020-01-30 13:08 | Internal Medicine Prog Note ---
Internal Medicine Subjective - Subjective Patient seen and examined:: with staff, chart reviewed Patient is:: awake, verbal, interactive Per staff patient has:: no adverse event, no episodes of fall, poor oral intake , tolerating meds Internal Medicine Objective - Physical Exam Vitals and I&O: Vital Signs Temp 98.3 F 01/29/20 14:00 Pulse 69 01/29/20 14:00 Resp 18 01/30/20 08:00 BP 140/78 01/29/20 14:00 Pulse Ox 96 01/29/20 14:00 Intake & Output 01/29/20 01/30/20 01/30/20 18:59 06:59 18:59 Intake Total 1200 240 Balance 1200 240 Intake: Oral 1200 240 Other: # Voids 4 2 # Bowel Movements 0 0 Active Medications: Current Medications Acetaminophen (Tylenol) 650 mg PO Q4H PRN PRN Reason: Pain (Mild 1-3) Stop: 03/23/20 13:04 Last Admin: 01/25/20 10:02 Dose: 650 mg Al Hydrox/Mg Hydrox/Simethicone (Maalox) 30 ml PO Q6H PRN PRN Reason: Dyspepsia Stop: 03/23/20 13:04 Albuterol Sulfate (Albuterol 2.5mg/3ml Neb Ud) 2.5 mg HHN Q6HR PRN PRN Reason: SOB DUE TO Cough Stop: 03/23/20 13:04 Bisacodyl (Dulcolax 10 Mg Supp) 10 mg RC DAILY PRN PRN Reason: IF MOM IS INEFFECTIVE Stop: 03/23/20 13:04 Guaifenesin/Dextromethorphan (Robitussin Dm) 5 ml PO Q6H PRN PRN Reason: Cough Stop: 03/23/20 13:04 Last Admin: 01/26/20 17:24 Dose: 5 ml Hyoscyamine Sulfate (Levsin) 0.125 mg PO Q6HR PRN PRN Reason: GI tract spasms. Lorazepam (Ativan) 0.5 mg PO Q4HR PRN; Protocol PRN Reason: Anxiety Stop: 03/23/20 13:04 Last Admin: 01/25/20 16:29 Dose: 0.5 mg Magnesium Hydroxide (Milk Of Magnesia) 30 ml PO HS PRN PRN Reason: Constipation Stop: 03/23/20 13:04 Last Admin: 01/26/20 21:09 Dose: 30 ml Multivitamins/Vitamin C (Theragran) 1 tab PO DAILY IRAIS Stop: 03/24/20 08:59 Last Admin: 01/30/20 09:23 Dose: 1 tab Quetiapine Fumarate 100 mg/ (Quetiapine Fumarate 50 mg) 150 mg PO HS IRAIS Stop: 03/29/20 20:59 Last Admin: 01/29/20 20:29 Dose: 150 mg Zolpidem Tartrate (Ambien) 5 mg PO HS PRN PRN Reason: Insomnia Stop: 03/23/20 13:04 Last Admin: 01/26/20 20:49 Dose: 5 mg General: demented HEENT: NC/AT, PERRLA Neck: Supple, No JVD Lungs: CTAB Cardiovascular: RRR, Normal S1, Normal S2, with murmur Abdomen: soft, non-distended, positive bowel sound Extremities: excoriation Neurological: no change Internal Medicine Assmt/Plan - Assessment Assessment: ASSESSMENT AND PLAN: Alzheimer's dementia, history of anemia, dysphagia, chronic pain syndrome, chronic low back pain, elevated liver function tests, chronic obstructive pulmonary disease, constipation. - Plan Plan: PLAN: We will review the patient's medication. We will place the patient on albuterol and Atrovent as needed basis. We will monitor hemoglobin and hematocrit. We will place the patient on aspiration precaution. We will continue to monitor the patient closely with you, Dr. Davis. Nutritional Asmnt/Malnutr-PDOC - Dietary Evaluation Malnutrition Findings (Please click <Entered> for more info): Nutritional Asmnt/Malnutrition Start: 01/29/20 16: 00 Text: Status: Complete Freq: Protocol: Document 01/29/20 16:00 ALVIN (Rec: 01/29/20 16:03 ALVIN [id number]) Nutritional Asmnt/Malnutrition Patient General Information Nutritional Screening Moderate Risk Diagnosis Psychosis Pertinent Medical Hx/Surgical Hx COPD, Chronic Pain Syndrome, Constipation, s/p Thyroid surgery Subjective Information Pt is a 69-year-old male admitted on 01/22 d/t aggressive behavior and refusing most things. Pt is eating an estimated 90% of meals since admit date (x5 days) Per Meal/Nutrition Activity Record. Dietary is currently providing an estimated 2550 kcals and 120 gm Pro, per Pt PO intake this is providing an estimated 2000 kcals and 108gm Pro to meet 100+% kcal and 100+% Pro needs- adequate to promote gradual weight gain trending towards IBW. Will continue to monitor PO intake and weight trend. Adding Ensure Enlive to dinner tray to support gradual weight gain. Visited pt in community room today, he was reading a newspaper. Upon introduction of myself he told me to go away and get out , when I tried again he got more demanding that I leave, unable to perform nutrition focused physical exam, pt agitated with a hoodie on, the miller covering much of his face. Spoke with charge nurse Alesia concerning more recent labs. Anthropometrics HT: 58 WT: 118 LB (53.64 kg) BMI: 18.03 (underweight) GI/ Skin Integrity GI: WNL, Soft, Flat BM: 01/27 x1 I/O: 1140/Not Noted Skin: WNL, Intact Adán: 19 Diet Order: Regular Estimated Energy Needs: ( underweight, CBW) 6465-7433 kcals (30-35 kcals/ kg) 65-70g Pro (1.2-1.3 g/kg) 4120-5302 ml (30-35 ml/kg) Current Diet Order/ Nutrition Support Regular Pertinent Medications Maalox (PRN), Albuterol (PRN), Dulcolax (PRN), MOM (PRN), Theragran Pertinent Labs 12/01: Alk Phos 281, Albumin 2. 9 Nutritional Hx/Data Height 1.73 m Height (Calculated Centimeters) 172.7 Current Weight (lbs) 53.72 kg Weight (Calculated Kilograms) 53.7 Weight (Calculated Grams) 71321.5 [place] Body Weight 154 LB (70 kg) % [place] Body Weight 77 Body Mass Index (BMI) 18.0 Weight Status Underweight GI Symptoms Last BM 01/27 x1 Skin Integrity/Comment: Skin: WNL, Intact Adán: 19 Current %PO Good (75-100%) Estimated Nutritional Goals BEE in Kcals: Using Current wt Calories/Kcals/Kg 30-35 Kcals Calculated 9909-5003 Protein: Using Current wt Protein g/k.2-1.3 Protein Calculated 65-70 Fluid: ml 0143-1319 Nutritional Problem 1. Problem Problem Underweight Etiology r/t consistent underconsumption of energy needs Signs/Symptoms: aeb BMI <18.50 (18.03). Intervention/Recommendation Comments 1.Continue Regular diet as tolerated. 2.Weekly weight. 3.Add Ensure to dinner tray ( completed). Expected Outcomes/Goals Expected Outcomes/Goals 1.PO intake to continue to meet >75% of estimated nutritional needs. 2.Gradual weight gain (0.5-1.0 LB /week) trending toward IBW preferred. 3.Monitor PO intake, wt, nutrition related labs, and skin integrity. 4.F/U as moderate risk in 3-5 days, 01/31-02/02.
--- NOTE | 2020-01-30 14:15 | Progress Notes ---
DATE: 01/30/2020 SUBJECTIVE: A 69-year-old male, currently in the hospital, prior hospitalizations, very confused, acting out behaviors, talking nonsensically, writing things down. I looked at the writings they do not make any sense, still responding to internal stimuli, mostly withdrawn, keeps to self. Medications were reviewed. Labs were reviewed. Nursing notes were reviewed. VITALS: 140/78, pulse of 69. Per nursing staff, impulsive, unpredictable, slept about 7 hours. MENTAL STATUS EXAMINATION: Stated age. Fair eye contact, confused, disoriented, poor impulse control. DIAGNOSIS: Unchanged. PLAN: We will continue to monitor, titrate and adjust medications. JOB# [id number]
[2020-01-31] MEDS: Multivitamin Tab PO SCH (08:06)
--- NOTE | 2020-01-31 11:16 | Internal Medicine Prog Note ---
Internal Medicine Subjective - Subjective Patient seen and examined:: with staff, chart reviewed Patient is:: awake, verbal, interactive Per staff patient has:: no adverse event, no episodes of fall, poor oral intake , tolerating meds Internal Medicine Objective - Physical Exam Vitals and I&O: Vital Signs Temp 98.3 F 01/29/20 14:00 Pulse 69 01/29/20 14:00 Resp 18 01/31/20 08:00 BP 140/78 01/29/20 14:00 Pulse Ox 96 01/29/20 14:00 Intake & Output 01/30/20 01/31/20 01/31/20 18:59 06:59 18:59 Intake Total 1560 360 Balance 1560 360 Intake: Oral 1080 360 Other 480 Other: # Voids 4 2 # Bowel Movements 0 0 Active Medications: Current Medications Acetaminophen (Tylenol) 650 mg PO Q4H PRN PRN Reason: Pain (Mild 1-3) Stop: 03/23/20 13:04 Last Admin: 01/25/20 10:02 Dose: 650 mg Al Hydrox/Mg Hydrox/Simethicone (Maalox) 30 ml PO Q6H PRN PRN Reason: Dyspepsia Stop: 03/23/20 13:04 Albuterol Sulfate (Albuterol 2.5mg/3ml Neb Ud) 2.5 mg HHN Q6HR PRN PRN Reason: SOB DUE TO Cough Stop: 03/23/20 13:04 Bisacodyl (Dulcolax 10 Mg Supp) 10 mg RC DAILY PRN PRN Reason: IF MOM IS INEFFECTIVE Stop: 03/23/20 13:04 Guaifenesin/Dextromethorphan (Robitussin Dm) 5 ml PO Q6H PRN PRN Reason: Cough Stop: 03/23/20 13:04 Last Admin: 01/26/20 17:24 Dose: 5 ml Hyoscyamine Sulfate (Levsin) 0.125 mg PO Q6HR PRN PRN Reason: GI tract spasms. Lorazepam (Ativan) 0.5 mg PO Q4HR PRN; Protocol PRN Reason: Anxiety Stop: 03/23/20 13:04 Last Admin: 01/25/20 16:29 Dose: 0.5 mg Magnesium Hydroxide (Milk Of Magnesia) 30 ml PO HS PRN PRN Reason: Constipation Stop: 03/23/20 13:04 Last Admin: 01/26/20 21:09 Dose: 30 ml Multivitamins/Vitamin C (Theragran) 1 tab PO DAILY IRAIS Stop: 03/24/20 08:59 Last Admin: 01/31/20 08:06 Dose: 1 tab Quetiapine Fumarate 100 mg/Quetiapine Fumarate 50 mg/Quetiapine Fumarate 25 mg 175 mg PO HS IRAIS Stop: 03/30/20 20:59 Last Admin: 01/30/20 21:01 Dose: 175 mg Zolpidem Tartrate (Ambien) 5 mg PO HS PRN PRN Reason: Insomnia Stop: 03/23/20 13:04 Last Admin: 01/26/20 20:49 Dose: 5 mg General: demented HEENT: NC/AT, PERRLA Neck: Supple, No JVD Lungs: CTAB Cardiovascular: RRR, Normal S1, Normal S2, with murmur Abdomen: soft, non-distended, positive bowel sound Extremities: excoriation Neurological: no change Internal Medicine Assmt/Plan - Assessment Assessment: ASSESSMENT AND PLAN: Alzheimer's dementia, history of anemia, dysphagia, chronic pain syndrome, chronic low back pain, elevated liver function tests, chronic obstructive pulmonary disease, constipation. - Plan Plan: PLAN: We will review the patient's medication. We will place the patient on albuterol and Atrovent as needed basis. We will monitor hemoglobin and hematocrit. We will place the patient on aspiration precaution. We will continue to monitor the patient closely with you, Dr. Davis. Nutritional Asmnt/Malnutr-PDOC - Dietary Evaluation Malnutrition Findings (Please click <Entered> for more info): Nutritional Asmnt/Malnutrition Start: 01/29/20 16: 00 Text: Status: Complete Freq: Protocol: Document 01/29/20 16:00 ALVIN (Rec: 01/29/20 16:03 ALVIN ELISABETH-[email or web address] -[id number]) Nutritional Asmnt/Malnutrition Patient General Information Nutritional Screening Moderate Risk Diagnosis Psychosis Pertinent Medical Hx/Surgical Hx COPD, Chronic Pain Syndrome, Constipation, s/p Thyroid surgery Subjective Information Pt is a 69-year-old male admitted on 01/22 d/t aggressive behavior and refusing most things. Pt is eating an estimated 90% of meals since admit date (x5 days) Per Meal/Nutrition Activity Record. Dietary is currently providing an estimated 2550 kcals and 120 gm Pro, per Pt PO intake this is providing an estimated 2000 kcals and 108gm Pro to meet 100+% kcal and 100+% Pro needs- adequate to promote gradual weight gain trending towards IBW. Will continue to monitor PO intake and weight trend. Adding Ensure Enlive to dinner tray to support gradual weight gain. Visited pt in community room today, he was reading a newspaper. Upon introduction of myself he told me to go away and get out , when I tried again he got more demanding that I leave, unable to perform nutrition focused physical exam, pt agitated with a hoodie on, the miller covering much of his face. Spoke with charge nurse Alesia concerning more recent labs. Anthropometrics HT: 58 WT: 118 LB (53.64 kg) BMI: 18.03 (underweight) GI/ Skin Integrity GI: WNL, Soft, Flat BM: 01/27 x1 I/O: 1140/Not Noted Skin: WNL, Intact Adán: 19 Diet Order: Regular Estimated Energy Needs: ( underweight, CBW) 9595-8962 kcals (30-35 kcals/ kg) 65-70g Pro (1.2-1.3 g/kg) 1312-1282 ml (30-35 ml/kg) Current Diet Order/ Nutrition Support Regular Pertinent Medications Maalox (PRN), Albuterol (PRN), Dulcolax (PRN), MOM (PRN), Theragran Pertinent Labs 12/01: Alk Phos 281, Albumin 2. 9 Nutritional Hx/Data Height 1.73 m Height (Calculated Centimeters) 172.7 Current Weight (lbs) 53.72 kg Weight (Calculated Kilograms) 53.7 Weight (Calculated Grams) 76879.5 [place] Body Weight 154 LB (70 kg) % [place] Body Weight 77 Body Mass Index (BMI) 18.0 Weight Status Underweight GI Symptoms Last BM 01/27 x1 Skin Integrity/Comment: Skin: WNL, Intact Adán: 19 Current %PO Good (75-100%) Estimated Nutritional Goals BEE in Kcals: Using Current wt Calories/Kcals/Kg 30-35 Kcals Calculated 4782-9404 Protein: Using Current wt Protein g/k.2-1.3 Protein Calculated 65-70 Fluid: ml 2388-0051 Nutritional Problem 1. Problem Problem Underweight Etiology r/t consistent underconsumption of energy needs Signs/Symptoms: aeb BMI <18.50 (18.03). Intervention/Recommendation Comments 1.Continue Regular diet as tolerated. 2.Weekly weight. 3.Add Ensure to dinner tray ( completed). Expected Outcomes/Goals Expected Outcomes/Goals 1.PO intake to continue to meet >75% of estimated nutritional needs. 2.Gradual weight gain (0.5-1.0 LB /week) trending toward IBW preferred. 3.Monitor PO intake, wt, nutrition related labs, and skin integrity. 4.F/U as moderate risk in 3-5 days, 01/31-02/02.
--- NOTE | 2020-01-31 21:50 | Progress Notes ---
DATE: 01/31/2020 Medication reconciliation reviewed, Kate, Atfabi as needed. HISTORY OF PRESENT ILLNESS: A 69-year-old male with a history of confusion, paranoia. Today on [id number] evaluation, extremely irritable, reported that he plans to leave ____ with him the risks associated with COVID-19 and placement. He becomes more irritable and refuses to communicate. ASSESSMENT AND PLAN: Suspicious, paranoid, continues to find still distressed, overwhelmed with poor insight in regards to his health and voice of ____, unable to form a safe plan. JOB# [id number]
[2020-02-01] MEDS: Multivitamin Tab PO SCH (09:04)
--- NOTE | 2020-02-01 12:07 | Internal Medicine Prog Note ---
Internal Medicine Subjective - Subjective Patient seen and examined:: with staff, chart reviewed Patient is:: awake, verbal, interactive Per staff patient has:: no adverse event, no episodes of fall, poor oral intake , tolerating meds Internal Medicine Objective - Physical Exam Vitals and I&O: Vital Signs Temp 98.3 F 01/29/20 14:00 Pulse 69 01/29/20 14:00 Resp 18 02/01/20 08:00 BP 140/78 01/29/20 14:00 Pulse Ox 96 01/29/20 14:00 Intake & Output 01/31/20 02/01/20 02/01/20 18:59 06:59 18:59 Intake Total 1000 240 400 Balance 1000 240 400 Intake: Oral 1000 240 400 Other: # Voids 2 1 # Bowel Movements 0 0 Active Medications: Current Medications Acetaminophen (Tylenol) 650 mg PO Q4H PRN PRN Reason: Pain (Mild 1-3) Stop: 03/23/20 13:04 Last Admin: 01/25/20 10:02 Dose: 650 mg Al Hydrox/Mg Hydrox/Simethicone (Maalox) 30 ml PO Q6H PRN PRN Reason: Dyspepsia Stop: 03/23/20 13:04 Albuterol Sulfate (Albuterol 2.5mg/3ml Neb Ud) 2.5 mg HHN Q6HR PRN PRN Reason: SOB DUE TO Cough Stop: 03/23/20 13:04 Bisacodyl (Dulcolax 10 Mg Supp) 10 mg RC DAILY PRN PRN Reason: IF MOM IS INEFFECTIVE Stop: 03/23/20 13:04 Guaifenesin/Dextromethorphan (Robitussin Dm) 5 ml PO Q6H PRN PRN Reason: Cough Stop: 03/23/20 13:04 Last Admin: 01/26/20 17:24 Dose: 5 ml Hyoscyamine Sulfate (Levsin) 0.125 mg PO Q6HR PRN PRN Reason: GI tract spasms. Lorazepam (Ativan) 0.5 mg PO Q4HR PRN; Protocol PRN Reason: Anxiety Stop: 03/23/20 13:04 Last Admin: 01/25/20 16:29 Dose: 0.5 mg Magnesium Hydroxide (Milk Of Magnesia) 30 ml PO HS PRN PRN Reason: Constipation Stop: 03/23/20 13:04 Last Admin: 01/26/20 21:09 Dose: 30 ml Multivitamins/Vitamin C (Theragran) 1 tab PO DAILY IRAIS Stop: 03/24/20 08:59 Last Admin: 02/01/20 09:04 Dose: 1 tab Quetiapine Fumarate 100 mg/Quetiapine Fumarate 50 mg/Quetiapine Fumarate 25 mg 175 mg PO HS IRAIS Stop: 03/30/20 20:59 Last Admin: 01/31/20 20:45 Dose: 175 mg Zolpidem Tartrate (Ambien) 5 mg PO HS PRN PRN Reason: Insomnia Stop: 03/23/20 13:04 Last Admin: 01/26/20 20:49 Dose: 5 mg General: demented HEENT: NC/AT, PERRLA Neck: Supple, No JVD Lungs: CTAB Cardiovascular: RRR, Normal S1, Normal S2, with murmur Abdomen: soft, non-distended, positive bowel sound Extremities: excoriation Neurological: no change Internal Medicine Assmt/Plan - Assessment Assessment: ASSESSMENT AND PLAN: Alzheimer's dementia, history of anemia, dysphagia, chronic pain syndrome, chronic low back pain, elevated liver function tests, chronic obstructive pulmonary disease, constipation. - Plan Plan: PLAN: We will review the patient's medication. We will place the patient on albuterol and Atrovent as needed basis. We will monitor hemoglobin and hematocrit. We will place the patient on aspiration precaution. We will continue to monitor the patient closely with you, Dr. Davis. Nutritional Asmnt/Malnutr-PDOC - Dietary Evaluation Malnutrition Findings (Please click <Entered> for more info): Nutritional Asmnt/Malnutrition Start: 01/29/20 16: 00 Text: Status: Complete Freq: Protocol: Document 01/29/20 16:00 ALVIN (Rec: 01/29/20 16:03 ALVIN ELISABETH-CTXTS -[id number]) Nutritional Asmnt/Malnutrition Patient General Information Nutritional Screening Moderate Risk Diagnosis Psychosis Pertinent Medical Hx/Surgical Hx COPD, Chronic Pain Syndrome, Constipation, s/p Thyroid surgery Subjective Information Pt is a 69-year-old male admitted on 01/22 d/t aggressive behavior and refusing most things. Pt is eating an estimated 90% of meals since admit date (x5 days) Per Meal/Nutrition Activity Record. Dietary is currently providing an estimated 2550 kcals and 120 gm Pro, per Pt PO intake this is providing an estimated 2000 kcals and 108gm Pro to meet 100+% kcal and 100+% Pro needs- adequate to promote gradual weight gain trending towards IBW. Will continue to monitor PO intake and weight trend. Adding Ensure Enlive to dinner tray to support gradual weight gain. Visited pt in community room today, he was reading a newspaper. Upon introduction of myself he told me to go away and get out , when I tried again he got more demanding that I leave, unable to perform nutrition focused physical exam, pt agitated with a hoodie on, the miller covering much of his face. Spoke with charge nurse Alesia concerning more recent labs. Anthropometrics HT: 58 WT: 118 LB (53.64 kg) BMI: 18.03 (underweight) GI/ Skin Integrity GI: WNL, Soft, Flat BM: 01/27 x1 I/O: 1140/Not Noted Skin: WNL, Intact Adán: 19 Diet Order: Regular Estimated Energy Needs: ( underweight, CBW) 9420-2992 kcals (30-35 kcals/ kg) 65-70g Pro (1.2-1.3 g/kg) 7677-7968 ml (30-35 ml/kg) Current Diet Order/ Nutrition Support Regular Pertinent Medications Maalox (PRN), Albuterol (PRN), Dulcolax (PRN), MOM (PRN), Theragran Pertinent Labs 12/01: Alk Phos 281, Albumin 2. 9 Nutritional Hx/Data Height 1.73 m Height (Calculated Centimeters) 172.7 Current Weight (lbs) 53.72 kg Weight (Calculated Kilograms) 53.7 Weight (Calculated Grams) 90967.5 [place] Body Weight 154 LB (70 kg) % [place] Body Weight 77 Body Mass Index (BMI) 18.0 Weight Status Underweight GI Symptoms Last BM 01/27 x1 Skin Integrity/Comment: Skin: WNL, Intact Adán: 19 Current %PO Good (75-100%) Estimated Nutritional Goals BEE in Kcals: Using Current wt Calories/Kcals/Kg 30-35 Kcals Calculated 8496-1836 Protein: Using Current wt Protein g/k.2-1.3 Protein Calculated 65-70 Fluid: ml 3836-3510 Nutritional Problem 1. Problem Problem Underweight Etiology r/t consistent underconsumption of energy needs Signs/Symptoms: aeb BMI <18.50 (18.03). Intervention/Recommendation Comments 1.Continue Regular diet as tolerated. 2.Weekly weight. 3.Add Ensure to dinner tray ( completed). Expected Outcomes/Goals Expected Outcomes/Goals 1.PO intake to continue to meet >75% of estimated nutritional needs. 2.Gradual weight gain (0.5-1.0 LB /week) trending toward IBW preferred. 3.Monitor PO intake, wt, nutrition related labs, and skin integrity. 4.F/U as moderate risk in 3-5 days, 01/31-02/02.
--- NOTE | 2020-02-02 02:30 | Progress Notes ---
DATE: 02/01/2020 Very irritable, agitated, ____unruly MENTAL STATUS EXAMINATION: Suspicious, paranoid. ASSESSMENT AND PLAN: Paranoid, tolerating current adjustment of medications without complications or side effects. We will continue monitoring and evaluating the patient, adjustment of medications. JOB# [id number]
[2020-02-02] MEDS: Multivitamin Tab PO SCH (08:17)
--- NOTE | 2020-02-02 12:56 | Internal Medicine Prog Note ---
Internal Medicine Subjective - Subjective Patient seen and examined:: with staff, chart reviewed Patient is:: awake, verbal, interactive Per staff patient has:: no adverse event, no episodes of fall, poor oral intake , tolerating meds Internal Medicine Objective - Physical Exam Vitals and I&O: Vital Signs Temp 0 F 02/01/20 20:13 Pulse 69 01/29/20 14:00 Resp 18 02/02/20 08:00 BP 140/78 01/29/20 14:00 Pulse Ox 96 01/29/20 14:00 Intake & Output 02/01/20 02/02/20 02/02/20 18:59 06:59 18:59 Intake Total 800 590 Balance 800 590 Intake: Oral 800 590 Other: # Voids 1 # Bowel Movements 0 Active Medications: Current Medications Acetaminophen (Tylenol) 650 mg PO Q4H PRN PRN Reason: Pain (Mild 1-3) Stop: 03/23/20 13:04 Last Admin: 01/25/20 10:02 Dose: 650 mg Al Hydrox/Mg Hydrox/Simethicone (Maalox) 30 ml PO Q6H PRN PRN Reason: Dyspepsia Stop: 03/23/20 13:04 Albuterol Sulfate (Albuterol 2.5mg/3ml Neb Ud) 2.5 mg HHN Q6HR PRN PRN Reason: SOB DUE TO Cough Stop: 03/23/20 13:04 Bisacodyl (Dulcolax 10 Mg Supp) 10 mg RC DAILY PRN PRN Reason: IF MOM IS INEFFECTIVE Stop: 03/23/20 13:04 Guaifenesin/Dextromethorphan (Robitussin Dm) 5 ml PO Q6H PRN PRN Reason: Cough Stop: 03/23/20 13:04 Last Admin: 01/26/20 17:24 Dose: 5 ml Hyoscyamine Sulfate (Levsin) 0.125 mg PO Q6HR PRN PRN Reason: GI tract spasms. Lorazepam (Ativan) 0.5 mg PO Q4HR PRN; Protocol PRN Reason: Anxiety Stop: 03/23/20 13:04 Last Admin: 01/25/20 16:29 Dose: 0.5 mg Magnesium Hydroxide (Milk Of Magnesia) 30 ml PO HS PRN PRN Reason: Constipation Stop: 03/23/20 13:04 Last Admin: 04/13/20 21:09 Dose: 30 ml Multivitamins/Vitamin C (Theragran) 1 tab PO DAILY IRAIS Stop: 03/24/20 08:59 Last Admin: 02/02/20 08:17 Dose: 1 tab Quetiapine Fumarate (Seroquel) 200 mg PO HS IRAIS Stop: 04/02/20 20:59 Zolpidem Tartrate (Ambien) 5 mg PO HS PRN PRN Reason: Insomnia Stop: 03/23/20 13:04 Last Admin: 01/26/20 20:49 Dose: 5 mg General: demented HEENT: NC/AT, PERRLA Neck: Supple, No JVD Lungs: CTAB Cardiovascular: RRR, Normal S1, Normal S2, with murmur Abdomen: soft, non-distended, positive bowel sound Extremities: excoriation Neurological: no change Internal Medicine Assmt/Plan - Assessment Assessment: ASSESSMENT AND PLAN: Alzheimer's dementia, history of anemia, dysphagia, chronic pain syndrome, chronic low back pain, elevated liver function tests, chronic obstructive pulmonary disease, constipation. - Plan Plan: PLAN: We will review the patient's medication. We will place the patient on albuterol and Atrovent as needed basis. We will monitor hemoglobin and hematocrit. We will place the patient on aspiration precaution. We will continue to monitor the patient closely with you, Dr. Davis. Nutritional Asmnt/Malnutr-PDOC - Dietary Evaluation Malnutrition Findings (Please click <Entered> for more info): Nutritional Asmnt/Malnutrition Start: 01/29/20 16: 00 Text: Status: Complete Freq: Protocol: Document 01/29/20 16:00 ALVIN (Rec: 01/29/20 16:03 ALVIN ELISABETH-CTXTS -[id number]) Nutritional Asmnt/Malnutrition Patient General Information Nutritional Screening Moderate Risk Diagnosis Psychosis Pertinent Medical Hx/Surgical Hx COPD, Chronic Pain Syndrome, Constipation, s/p Thyroid surgery Subjective Information Pt is a 69-year-old male admitted on 01/22 d/t aggressive behavior and refusing most things. Pt is eating an estimated 90% of meals since admit date (x5 days) Per Meal/Nutrition Activity Record. Dietary is currently providing an estimated 2550 kcals and 120 gm Pro, per Pt PO intake this is providing an estimated 2000 kcals and 108gm Pro to meet 100+% kcal and 100+% Pro needs- adequate to promote gradual weight gain trending towards IBW. Will continue to monitor PO intake and weight trend. Adding Ensure Enlive to dinner tray to support gradual weight gain. Visited pt in community room today, he was reading a newspaper. Upon introduction of myself he told me to go away and get out , when I tried again he got more demanding that I leave, unable to perform nutrition focused physical exam, pt agitated with a hoodie on, the miller covering much of his face. Spoke with charge nurse Alesia concerning more recent labs. Anthropometrics HT: 58 WT: 118 LB (53.64 kg) BMI: 18.03 (underweight) GI/ Skin Integrity GI: WNL, Soft, Flat BM: 01/27 x1 I/O: 1140/Not Noted Skin: WNL, Intact Adán: 19 Diet Order: Regular Estimated Energy Needs: ( underweight, CBW) 7859-4496 kcals (30-35 kcals/ kg) 65-70g Pro (1.2-1.3 g/kg) 0475-8117 ml (30-35 ml/kg) Current Diet Order/ Nutrition Support Regular Pertinent Medications Maalox (PRN), Albuterol (PRN), Dulcolax (PRN), MOM (PRN), Theragran Pertinent Labs 12/01: Alk Phos 281, Albumin 2. 9 Nutritional Hx/Data Height 1.73 m Height (Calculated Centimeters) 172.7 Current Weight (lbs) 53.72 kg Weight (Calculated Kilograms) 53.7 Weight (Calculated Grams) 25924.5 [place] Body Weight 154 LB (70 kg) % [place] Body Weight 77 Body Mass Index (BMI) 18.0 Weight Status Underweight GI Symptoms Last BM 01/27 x1 Skin Integrity/Comment: Skin: WNL, Intact Adán: 19 Current %PO Good (75-100%) Estimated Nutritional Goals BEE in Kcals: Using Current wt Calories/Kcals/Kg 30-35 Kcals Calculated 5466-9432 Protein: Using Current wt Protein g/k.2-1.3 Protein Calculated 65-70 Fluid: ml 0759-6480 Nutritional Problem 1. Problem Problem Underweight Etiology r/t consistent underconsumption of energy needs Signs/Symptoms: aeb BMI <18.50 (18.03). Intervention/Recommendation Comments 1.Continue Regular diet as tolerated. 2.Weekly weight. 3.Add Ensure to dinner tray ( completed). Expected Outcomes/Goals Expected Outcomes/Goals 1.PO intake to continue to meet >75% of estimated nutritional needs. 2.Gradual weight gain (0.5-1.0 LB /week) trending toward IBW preferred. 3.Monitor PO intake, wt, nutrition related labs, and skin integrity. 4.F/U as moderate risk in 3-5 days, 01/31-02/02.
--- NOTE | 2020-02-02 13:37 | Progress Notes ---
DATE: 02/02/2020 SUBJECTIVE: The patient in the hospital. Noted periods of agitation. Restless at times. Generally calmer, more cooperative, still pretty confused on exam, difficult to really assess how he is doing, given his confusional state. Mostly withdrawn, keeps to self. Currently, now in the dayroom, but not really conversing with anybody, seems to be mumbling to self, responding to internal stimuli. Fair sleep and appetite. Medications were reviewed. Labs were reviewed. Vitals were reviewed. Refusing vitals unfortunately. I reviewed the nursing notes and the weekend doctor notes evaluated for any medication side effects, none noted. MENTAL STATUS EXAMINATION: Stated age. Fair eye contact, internally preoccupied, disoriented. No overt SI or HI. DIAGNOSIS: Unchanged. PLAN: Complex case, some resistance to treatment, refusal of labs for example, confusion. Medical problems were noted. I will be titrating his dosing of Seroquel. JOB# [id number]
[2020-02-03] MEDS: Multivitamin Tab PO SCH (09:19)
--- NOTE | 2020-02-03 12:34 | Internal Medicine Prog Note ---
Internal Medicine Subjective - Subjective Patient seen and examined:: with staff, chart reviewed Patient is:: awake, verbal, interactive Per staff patient has:: no adverse event, no episodes of fall, poor oral intake , tolerating meds Internal Medicine Objective - Physical Exam Vitals and I&O: Vital Signs Temp 0 F 02/01/20 20:13 Pulse 69 01/29/20 14:00 Resp 18 02/02/20 08:00 BP 140/78 01/29/20 14:00 Pulse Ox 96 01/29/20 14:00 Intake & Output 02/02/20 02/03/20 02/03/20 18:59 06:59 18:59 Intake Total 1320 360 Balance 1320 360 Intake: Oral 1080 360 Other 240 Other: # Voids 4 2 # Bowel Movements 0 0 Active Medications: Current Medications Acetaminophen (Tylenol) 650 mg PO Q4H PRN PRN Reason: Pain (Mild 1-3) Stop: 03/23/20 13:04 Last Admin: 01/25/20 10:02 Dose: 650 mg Al Hydrox/Mg Hydrox/Simethicone (Maalox) 30 ml PO Q6H PRN PRN Reason: Dyspepsia Stop: 03/23/20 13:04 Albuterol Sulfate (Albuterol 2.5mg/3ml Neb Ud) 2.5 mg HHN Q6HR PRN PRN Reason: SOB DUE TO Cough Stop: 03/23/20 13:04 Bisacodyl (Dulcolax 10 Mg Supp) 10 mg RC DAILY PRN PRN Reason: IF MOM IS INEFFECTIVE Stop: 03/23/20 13:04 Guaifenesin/Dextromethorphan (Robitussin Dm) 5 ml PO Q6H PRN PRN Reason: Cough Stop: 03/23/20 13:04 Last Admin: 01/26/20 17:24 Dose: 5 ml Hyoscyamine Sulfate (Levsin) 0.125 mg PO Q6HR PRN PRN Reason: GI tract spasms. Lorazepam (Ativan) 0.5 mg PO Q4HR PRN; Protocol PRN Reason: Anxiety Stop: 03/23/20 13:04 Last Admin: 01/25/20 16:29 Dose: 0.5 mg Magnesium Hydroxide (Milk Of Magnesia) 30 ml PO HS PRN PRN Reason: Constipation Stop: 03/23/20 13:04 Last Admin: 01/26/20 21:09 Dose: 30 ml Multivitamins/Vitamin C (Theragran) 1 tab PO DAILY IRAIS Stop: 03/24/20 08:59 Last Admin: 02/03/20 09:19 Dose: Not Given Quetiapine Fumarate 200 mg/ (Quetiapine Fumarate 50 mg) 250 mg PO HS IRAIS Stop: 04/03/20 20:59 Zolpidem Tartrate (Ambien) 5 mg PO HS PRN PRN Reason: Insomnia Stop: 03/23/20 13:04 Last Admin: 02/02/20 20:52 Dose: 5 mg General: demented HEENT: NC/AT, PERRLA Neck: Supple, No JVD Lungs: CTAB Cardiovascular: RRR, Normal S1, Normal S2, with murmur Abdomen: soft, non-distended, positive bowel sound Extremities: excoriation Neurological: no change Internal Medicine Assmt/Plan - Assessment Assessment: ASSESSMENT AND PLAN: Alzheimer's dementia, history of anemia, dysphagia, chronic pain syndrome, chronic low back pain, elevated liver function tests, chronic obstructive pulmonary disease, constipation. - Plan Plan: PLAN: We will review the patient's medication. We will place the patient on albuterol and Atrovent as needed basis. We will monitor hemoglobin and hematocrit. We will place the patient on aspiration precaution. We will continue to monitor the patient closely with you, Dr. Davis. Nutritional Asmnt/Malnutr-PDOC - Dietary Evaluation Malnutrition Findings (Please click <Entered> for more info): Nutritional Asmnt/Malnutrition Start: 01/29/20 16: 00 Text: Status: Complete Freq: Protocol: Document 01/29/20 16:00 ALVIN (Rec: 01/29/20 16:03 ALVIN ELISABETH-CTXTS -[id number]) Nutritional Asmnt/Malnutrition Patient General Information Nutritional Screening Moderate Risk Diagnosis Psychosis Pertinent Medical Hx/Surgical Hx COPD, Chronic Pain Syndrome, Constipation, s/p Thyroid surgery Subjective Information Pt is a 69-year-old male admitted on 01/22 d/t aggressive behavior and refusing most things. Pt is eating an estimated 90% of meals since admit date (x5 days) Per Meal/Nutrition Activity Record. Dietary is currently providing an estimated 2550 kcals and 120 gm Pro, per Pt PO intake this is providing an estimated 2000 kcals and 108gm Pro to meet 100+% kcal and 100+% Pro needs- adequate to promote gradual weight gain trending towards IBW. Will continue to monitor PO intake and weight trend. Adding Ensure Enlive to dinner tray to support gradual weight gain. Visited pt in community room today, he was reading a newspaper. Upon introduction of myself he told me to go away and get out , when I tried again he got more demanding that I leave, unable to perform nutrition focused physical exam, pt agitated with a hoodie on, the miller covering much of his face. Spoke with charge nurse Alesia concerning more recent labs. Anthropometrics HT: 58 WT: 118 LB (53.64 kg) BMI: 18.03 (underweight) GI/ Skin Integrity GI: WNL, Soft, Flat BM: 01/27 x1 I/O: 1140/Not Noted Skin: WNL, Intact Adán: 19 Diet Order: Regular Estimated Energy Needs: ( underweight, CBW) 3881-3839 kcals (30-35 kcals/ kg) 65-70g Pro (1.2-1.3 g/kg) 1906-4101 ml (30-35 ml/kg) Current Diet Order/ Nutrition Support Regular Pertinent Medications Maalox (PRN), Albuterol (PRN), Dulcolax (PRN), MOM (PRN), Theragran Pertinent Labs 12/01: Alk Phos 281, Albumin 2. 9 Nutritional Hx/Data Height 1.73 m Height (Calculated Centimeters) 172.7 Current Weight (lbs) 53.72 kg Weight (Calculated Kilograms) 53.7 Weight (Calculated Grams) 88847.5 [place] Body Weight 154 LB (70 kg) % [place] Body Weight 77 Body Mass Index (BMI) 18.0 Weight Status Underweight GI Symptoms Last BM 01/27 x1 Skin Integrity/Comment: Skin: WNL, Intact Adán: 19 Current %PO Good (75-100%) Estimated Nutritional Goals BEE in Kcals: Using Current wt Calories/Kcals/Kg 30-35 Kcals Calculated 8831-6683 Protein: Using Current wt Protein g/k.2-1.3 Protein Calculated 65-70 Fluid: ml 8094-7830 Nutritional Problem 1. Problem Problem Underweight Etiology r/t consistent underconsumption of energy needs Signs/Symptoms: aeb BMI <18.50 (18.03). Intervention/Recommendation Comments 1.Continue Regular diet as tolerated. 2.Weekly weight. 3.Add Ensure to dinner tray ( completed). Expected Outcomes/Goals Expected Outcomes/Goals 1.PO intake to continue to meet >75% of estimated nutritional needs. 2.Gradual weight gain (0.5-1.0 LB /week) trending toward IBW preferred. 3.Monitor PO intake, wt, nutrition related labs, and skin integrity. 4.F/U as moderate risk in 3-5 days, 01/31-02/02.
[2020-02-03] MEDS: Guaifenesin DM 10 ML UDC PO PRN (22:03)
[2020-02-04] MEDS: Multivitamin Tab PO SCH (09:00)
--- NOTE | 2020-02-04 12:31 | Internal Medicine Prog Note ---
Internal Medicine Subjective - Subjective Patient seen and examined:: with staff, chart reviewed Patient is:: awake, verbal, interactive Per staff patient has:: no adverse event, no episodes of fall, poor oral intake , tolerating meds Internal Medicine Objective - Physical Exam Vitals and I&O: Vital Signs Temp 0 F 02/03/20 19:58 Pulse 79 02/03/20 15:53 Resp 18 02/03/20 15:53 BP 114/65 02/03/20 15:53 Pulse Ox 96 02/03/20 15:53 Intake & Output 02/03/20 02/04/20 02/04/20 18:59 06:59 18:59 Intake Total 1000 540 Balance 1000 540 Intake: Oral 1000 540 Other: # Voids 4 1 # Bowel Movements 1 0 Stool Characteristics Soft Brown Active Medications: Current Medications Acetaminophen (Tylenol) 650 mg PO Q4H PRN PRN Reason: Pain (Mild 1-3) Stop: 03/23/20 13:04 Last Admin: 01/25/20 10:02 Dose: 650 mg Al Hydrox/Mg Hydrox/Simethicone (Maalox) 30 ml PO Q6H PRN PRN Reason: Dyspepsia Stop: 03/23/20 13:04 Albuterol Sulfate (Albuterol 2.5mg/3ml Neb Ud) 2.5 mg HHN Q6HR PRN PRN Reason: SOB DUE TO Cough Stop: 03/23/20 13:04 Bisacodyl (Dulcolax 10 Mg Supp) 10 mg RC DAILY PRN PRN Reason: IF MOM IS INEFFECTIVE Stop: 03/23/20 13:04 Guaifenesin/Dextromethorphan (Robitussin Dm) 5 ml PO Q6H PRN PRN Reason: Cough Stop: 03/23/20 13:04 Last Admin: 02/03/20 22:03 Dose: 5 ml Hyoscyamine Sulfate (Levsin) 0.125 mg PO Q6HR PRN PRN Reason: GI tract spasms. Lorazepam (Ativan) 0.5 mg PO Q4HR PRN; Protocol PRN Reason: Anxiety Stop: 03/23/20 13:04 Last Admin: 01/25/20 16:29 Dose: 0.5 mg Magnesium Hydroxide (Milk Of Magnesia) 30 ml PO HS PRN PRN Reason: Constipation Stop: 03/23/20 13:04 Last Admin: 01/26/20 21:09 Dose: 30 ml Multivitamins/Vitamin C (Theragran) 1 tab PO DAILY IRAIS Stop: 03/24/20 08:59 Last Admin: 02/04/20 09:00 Dose: Not Given Quetiapine Fumarate 200 mg/ (Quetiapine Fumarate 50 mg) 250 mg PO HS IRAIS Stop: 04/03/20 20:59 Last Admin: 02/03/20 21:03 Dose: 250 mg Zolpidem Tartrate (Ambien) 5 mg PO HS PRN PRN Reason: Insomnia Stop: 03/23/20 13:04 Last Admin: 02/03/20 21:03 Dose: 5 mg General: demented HEENT: NC/AT, PERRLA Neck: Supple, No JVD Lungs: CTAB Cardiovascular: RRR, Normal S1, Normal S2, with murmur Abdomen: soft, non-distended, positive bowel sound Extremities: excoriation Neurological: no change Internal Medicine Assmt/Plan - Assessment Assessment: ASSESSMENT AND PLAN: Alzheimer's dementia, history of anemia, dysphagia, chronic pain syndrome, chronic low back pain, elevated liver function tests, chronic obstructive pulmonary disease, constipation. - Plan Plan: PLAN: We will review the patient's medication. We will place the patient on albuterol and Atrovent as needed basis. We will monitor hemoglobin and hematocrit. We will place the patient on aspiration precaution. We will continue to monitor the patient closely with you, Dr. Davis. Nutritional Asmnt/Malnutr-PDOC - Dietary Evaluation Malnutrition Findings (Please click <Entered> for more info): Nutritional Asmnt/Malnutrition Start: 01/29/20 16: 00 Text: Status: Complete Freq: Protocol: Document 01/29/20 16:00 ALVIN (Rec: 01/29/20 16:03 ALVIN ELISABETH-CTXTS -02) Nutritional Asmnt/Malnutrition Patient General Information Nutritional Screening Moderate Risk Diagnosis Psychosis Pertinent Medical Hx/Surgical Hx COPD, Chronic Pain Syndrome, Constipation, s/p Thyroid surgery Subjective Information Pt is a 69-year-old male admitted on 01/22 d/t aggressive behavior and refusing most things. Pt is eating an estimated 90% of meals since admit date (x5 days) Per Meal/Nutrition Activity Record. Dietary is currently providing an estimated 2550 kcals and 120 gm Pro, per Pt PO intake this is providing an estimated 2000 kcals and 108gm Pro to meet 100+% kcal and 100+% Pro needs- adequate to promote gradual weight gain trending towards IBW. Will continue to monitor PO intake and weight trend. Adding Ensure Enlive to dinner tray to support gradual weight gain. Visited pt in community room today, he was reading a newspaper. Upon introduction of myself he told me to go away and get out , when I tried again he got more demanding that I leave, unable to perform nutrition focused physical exam, pt agitated with a hoodie on, the miller covering much of his face. Spoke with charge nurse Alesia concerning more recent labs. Anthropometrics HT: 58 WT: 118 LB (53.64 kg) BMI: 18.03 (underweight) GI/ Skin Integrity GI: WNL, Soft, Flat BM: 01/27 x1 I/O: 1140/Not Noted Skin: WNL, Intact Adán: 19 Diet Order: Regular Estimated Energy Needs: ( underweight, CBW) 4851-9921 kcals (30-35 kcals/ kg) 65-70g Pro (1.2-1.3 g/kg) 5475-0902 ml (30-35 ml/kg) Current Diet Order/ Nutrition Support Regular Pertinent Medications Maalox (PRN), Albuterol (PRN), Dulcolax (PRN), MOM (PRN), Theragran Pertinent Labs 12/01: Alk Phos 281, Albumin 2. 9 Nutritional Hx/Data Height 1.73 m Height (Calculated Centimeters) 172.7 Current Weight (lbs) 53.72 kg Weight (Calculated Kilograms) 53.7 Weight (Calculated Grams) 12924.5 [place] Body Weight 154 LB (70 kg) % [place] Body Weight 77 Body Mass Index (BMI) 18.0 Weight Status Underweight GI Symptoms Last BM 01/27 x1 Skin Integrity/Comment: Skin: WNL, Intact Adán: 19 Current %PO Good (75-100%) Estimated Nutritional Goals BEE in Kcals: Using Current wt Calories/Kcals/Kg 30-35 Kcals Calculated 5792-5404 Protein: Using Current wt Protein g/k.2-1.3 Protein Calculated 65-70 Fluid: ml 5815-1001 Nutritional Problem 1. Problem Problem Underweight Etiology r/t consistent underconsumption of energy needs Signs/Symptoms: aeb BMI <18.50 (18.03). Intervention/Recommendation Comments 1.Continue Regular diet as tolerated. 2.Weekly weight. 3.Add Ensure to dinner tray ( completed). Expected Outcomes/Goals Expected Outcomes/Goals 1.PO intake to continue to meet >75% of estimated nutritional needs. 2.Gradual weight gain (0.5-1.0 LB /week) trending toward IBW preferred. 3.Monitor PO intake, wt, nutrition related labs, and skin integrity. 4.F/U as moderate risk in 3-5 days, 01/31-02/02.
--- NOTE | 2020-02-04 15:59 | Progress Notes ---
DATE: 02/04/2020 SUBJECTIVE: A 69-year-old male in the hospital, still with some periods of agitation, irritability, very confused, disoriented, just knows his name, knows he is in the hospital, answering some questions, but really confused, ongoing disorientation. Fair sleep and appetite, doing better during the daytime, calmer during the daytime, discussed with nursing staff at length. Medications were reviewed. Vitals were reviewed. Labs were reviewed. Refusing labs. No chest pain at this time. No discomfort. MENTAL STATUS EXAMINATION: Stated age. Fair eye contact, disheveled, unkempt, rambling, mumbling to self, confused, disoriented, ongoing impulsivities. DIAGNOSIS: Unchanged. PLAN: Multiple medical problems, hard to control symptoms. We will continue dosing of Seroquel given recent dose changes and adjustments. JOB# [id number]
[2020-02-05] MEDS: Multivitamin Tab PO SCH (08:29)
--- NOTE | 2020-02-05 12:15 | Progress Notes ---
DATE: 02/05/2020 SUBJECTIVE: The patient is a 69-year-old -[place] male, confused, disoriented, remains uncooperative, aggressive. History of schizophrenia, Alzheimer's. The patient notes voices. Poor orientation, mostly ruminative, fixated on smoking. Discussed with nursing staff, concerns about his ongoing behaviors, unruly, impulsive, unpredictable, mildly calmer versus when he came here. Medications were reviewed. Vital were reviewed. Labs were reviewed. Refusing vitals. MENTAL STATUS EXAMINATION: Sleeping, but arousable. Calm right now, but impulsive. DIAGNOSES: Unchanged, dementia, schizophrenia. PLAN: We will continue inpatient monitoring, titrate and adjust medications. We also may need to swab him for COVID-19. JOB# [id number]
--- NOTE | 2020-02-05 13:08 | Internal Medicine Prog Note ---
Internal Medicine Subjective - Subjective Patient seen and examined:: with staff, chart reviewed Patient is:: awake, verbal, interactive Per staff patient has:: no adverse event, no episodes of fall, poor oral intake , tolerating meds Internal Medicine Objective - Physical Exam Vitals and I&O: Vital Signs Temp 98.1 F 02/04/20 14:00 Pulse 66 02/04/20 14:00 Resp 18 02/04/20 14:00 BP 116/57 02/04/20 14:00 Pulse Ox 93 02/04/20 14:00 Intake & Output 02/04/20 02/05/20 02/05/20 18:59 06:59 18:59 Intake Total 1200 120 Balance 1200 120 Intake: Oral 1200 120 Other: # Voids 2 1 # Bowel Movements 1 0 Stool Characteristics Soft Soft Brown Brown Active Medications: Current Medications Acetaminophen (Tylenol) 650 mg PO Q4H PRN PRN Reason: Pain (Mild 1-3) Stop: 03/23/20 13:04 Last Admin: 01/25/20 10:02 Dose: 650 mg Al Hydrox/Mg Hydrox/Simethicone (Maalox) 30 ml PO Q6H PRN PRN Reason: Dyspepsia Stop: 03/23/20 13:04 Albuterol Sulfate (Albuterol 2.5mg/3ml Neb Ud) 2.5 mg HHN Q6HR PRN PRN Reason: SOB DUE TO Cough Stop: 03/23/20 13:04 Bisacodyl (Dulcolax 10 Mg Supp) 10 mg RC DAILY PRN PRN Reason: IF MOM IS INEFFECTIVE Stop: 03/23/20 13:04 Guaifenesin/Dextromethorphan (Robitussin Dm) 5 ml PO Q6H PRN PRN Reason: Cough Stop: 03/23/20 13:04 Last Admin: 02/03/20 22:03 Dose: 5 ml Hyoscyamine Sulfate (Levsin) 0.125 mg PO Q6HR PRN PRN Reason: GI tract spasms. Lorazepam (Ativan) 0.5 mg PO Q4HR PRN; Protocol PRN Reason: Anxiety Stop: 03/23/20 13:04 Last Admin: 01/25/20 16:29 Dose: 0.5 mg Magnesium Hydroxide (Milk Of Magnesia) 30 ml PO HS PRN PRN Reason: Constipation Stop: 03/23/20 13:04 Last Admin: 01/26/20 21:09 Dose: 30 ml Multivitamins/Vitamin C (Theragran) 1 tab PO DAILY IRAIS Stop: 03/24/20 08:59 Last Admin: 02/05/20 08:29 Dose: Not Given Quetiapine Fumarate 200 mg/ (Quetiapine Fumarate 50 mg) 250 mg PO HS IRAIS Stop: 04/03/20 20:59 Last Admin: 02/04/20 21:04 Dose: 250 mg Zolpidem Tartrate (Ambien) 5 mg PO HS PRN PRN Reason: Insomnia Stop: 03/23/20 13:04 Last Admin: 02/04/20 21:05 Dose: 5 mg General: demented HEENT: NC/AT, PERRLA Neck: Supple, No JVD Lungs: CTAB Cardiovascular: RRR, Normal S1, Normal S2, with murmur Abdomen: soft, non-distended, positive bowel sound Extremities: excoriation Neurological: no change Internal Medicine Assmt/Plan - Assessment Assessment: ASSESSMENT AND PLAN: Alzheimer's dementia, history of anemia, dysphagia, chronic pain syndrome, chronic low back pain, elevated liver function tests, chronic obstructive pulmonary disease, constipation. - Plan Plan: PLAN: We will review the patient's medication. We will place the patient on albuterol and Atrovent as needed basis. We will monitor hemoglobin and hematocrit. We will place the patient on aspiration precaution. We will continue to monitor the patient closely with you, Dr. Davis. Nutritional Asmnt/Malnutr-PDOC - Dietary Evaluation Malnutrition Findings (Please click <Entered> for more info): Nutritional Asmnt/Malnutrition Start: 01/29/20 16: 00 Text: Status: Complete Freq: Protocol: Document 01/29/20 16:00 ALVIN (Rec: 01/29/20 16:03 ALVIN ELISABETH-CTXTS -02) Nutritional Asmnt/Malnutrition Patient General Information Nutritional Screening Moderate Risk Diagnosis Psychosis Pertinent Medical Hx/Surgical Hx COPD, Chronic Pain Syndrome, Constipation, s/p Thyroid surgery Subjective Information Pt is a 69-year-old male admitted on 01/22 d/t aggressive behavior and refusing most things. Pt is eating an estimated 90% of meals since admit date (x5 days) Per Meal/Nutrition Activity Record. Dietary is currently providing an estimated 2550 kcals and 120 gm Pro, per Pt PO intake this is providing an estimated 2000 kcals and 108gm Pro to meet 100+% kcal and 100+% Pro needs- adequate to promote gradual weight gain trending towards IBW. Will continue to monitor PO intake and weight trend. Adding Ensure Enlive to dinner tray to support gradual weight gain. Visited pt in community room today, he was reading a newspaper. Upon introduction of myself he told me to go away and get out , when I tried again he got more demanding that I leave, unable to perform nutrition focused physical exam, pt agitated with a hoodie on, the miller covering much of his face. Spoke with charge nurse Alesia concerning more recent labs. Anthropometrics HT: 58 WT: 118 LB (53.64 kg) BMI: 18.03 (underweight) GI/ Skin Integrity GI: WNL, Soft, Flat BM: 01/27 x1 I/O: 1140/Not Noted Skin: WNL, Intact Adán: 19 Diet Order: Regular Estimated Energy Needs: ( underweight, CBW) 8411-8918 kcals (30-35 kcals/ kg) 65-70g Pro (1.2-1.3 g/kg) 6189-1563 ml (30-35 ml/kg) Current Diet Order/ Nutrition Support Regular Pertinent Medications Maalox (PRN), Albuterol (PRN), Dulcolax (PRN), MOM (PRN), Theragran Pertinent Labs 12/01: Alk Phos 281, Albumin 2. 9 Nutritional Hx/Data Height 1.73 m Height (Calculated Centimeters) 172.7 Current Weight (lbs) 53.72 kg Weight (Calculated Kilograms) 53.7 Weight (Calculated Grams) 20742.5 [place] Body Weight 154 LB (70 kg) % [place] Body Weight 77 Body Mass Index (BMI) 18.0 Weight Status Underweight GI Symptoms Last BM 01/27 x1 Skin Integrity/Comment: Skin: WNL, Intact Adán: 19 Current %PO Good (75-100%) Estimated Nutritional Goals BEE in Kcals: Using Current wt Calories/Kcals/Kg 30-35 Kcals Calculated 4104-0584 Protein: Using Current wt Protein g/k.2-1.3 Protein Calculated 65-70 Fluid: ml 4983-6340 Nutritional Problem 1. Problem Problem Underweight Etiology r/t consistent underconsumption of energy needs Signs/Symptoms: aeb BMI <18.50 (18.03). Intervention/Recommendation Comments 1.Continue Regular diet as tolerated. 2.Weekly weight. 3.Add Ensure to dinner tray ( completed). Expected Outcomes/Goals Expected Outcomes/Goals 1.PO intake to continue to meet >75% of estimated nutritional needs. 2.Gradual weight gain (0.5-1.0 LB /week) trending toward IBW preferred. 3.Monitor PO intake, wt, nutrition related labs, and skin integrity. 4.F/U as moderate risk in 3-5 days, 01/31-02/02.
[2020-02-06] MEDS: Multivitamin Tab PO SCH (08:39)
--- NOTE | 2020-02-06 13:07 | Internal Medicine Prog Note ---
Internal Medicine Subjective - Subjective Patient seen and examined:: with staff, chart reviewed Patient is:: awake, verbal, interactive Per staff patient has:: no adverse event, no episodes of fall, poor oral intake , tolerating meds Internal Medicine Objective - Physical Exam Vitals and I&O: Vital Signs Temp 98.1 F 02/04/20 14:00 Pulse 66 02/04/20 14:00 Resp 18 02/04/20 14:00 BP 116/57 02/04/20 14:00 Pulse Ox 93 02/04/20 14:00 Intake & Output 02/05/20 02/06/20 02/06/20 18:59 06:59 18:59 Intake Total 900 240 Balance 900 240 Intake: Oral 900 240 Other: # Voids 3 2 # Bowel Movements 1 0 Stool Characteristics Soft Brown Active Medications: Current Medications Acetaminophen (Tylenol) 650 mg PO Q4H PRN PRN Reason: Pain (Mild 1-3) Stop: 03/23/20 13:04 Last Admin: 01/25/20 10:02 Dose: 650 mg Al Hydrox/Mg Hydrox/Simethicone (Maalox) 30 ml PO Q6H PRN PRN Reason: Dyspepsia Stop: 03/23/20 13:04 Albuterol Sulfate (Albuterol 2.5mg/3ml Neb Ud) 2.5 mg HHN Q6HR PRN PRN Reason: SOB DUE TO Cough Stop: 03/23/20 13:04 Bisacodyl (Dulcolax 10 Mg Supp) 10 mg RC DAILY PRN PRN Reason: IF MOM IS INEFFECTIVE Stop: 03/23/20 13:04 Guaifenesin/Dextromethorphan (Robitussin Dm) 5 ml PO Q6H PRN PRN Reason: Cough Stop: 03/23/20 13:04 Last Admin: 02/03/20 22:03 Dose: 5 ml Hyoscyamine Sulfate (Levsin) 0.125 mg PO Q6HR PRN PRN Reason: GI tract spasms. Lorazepam (Ativan) 0.5 mg PO Q4HR PRN; Protocol PRN Reason: Anxiety Stop: 03/23/20 13:04 Last Admin: 01/25/20 16:29 Dose: 0.5 mg Magnesium Hydroxide (Milk Of Magnesia) 30 ml PO HS PRN PRN Reason: Constipation Stop: 03/23/20 13:04 Last Admin: 01/26/20 21:09 Dose: 30 ml Multivitamins/Vitamin C (Theragran) 1 tab PO DAILY IRAIS Stop: 03/24/20 08:59 Last Admin: 02/06/20 08:39 Dose: 1 tab Quetiapine Fumarate 200 mg/ (Quetiapine Fumarate 50 mg) 250 mg PO HS IRAIS Stop: 04/03/20 20:59 Last Admin: 02/05/20 20:48 Dose: 250 mg Zolpidem Tartrate (Ambien) 5 mg PO HS PRN PRN Reason: Insomnia Stop: 03/23/20 13:04 Last Admin: 02/05/20 20:48 Dose: 5 mg General: demented HEENT: NC/AT, PERRLA Neck: Supple, No JVD Lungs: CTAB Cardiovascular: RRR, Normal S1, Normal S2, with murmur Abdomen: soft, non-distended, positive bowel sound Extremities: excoriation Neurological: no change Internal Medicine Assmt/Plan - Assessment Assessment: ASSESSMENT AND PLAN: Alzheimer's dementia, history of anemia, dysphagia, chronic pain syndrome, chronic low back pain, elevated liver function tests, chronic obstructive pulmonary disease, constipation. - Plan Plan: PLAN: We will review the patient's medication. We will place the patient on albuterol and Atrovent as needed basis. We will monitor hemoglobin and hematocrit. We will place the patient on aspiration precaution. We will continue to monitor the patient closely with you, Dr. Davis. Nutritional Asmnt/Malnutr-PDOC - Dietary Evaluation Malnutrition Findings (Please click <Entered> for more info): Nutritional Asmnt/Malnutrition Start: 01/29/20 16: 00 Text: Status: Complete Freq: Protocol: Document 01/29/20 16:00 ALVIN (Rec: 01/29/20 16:03 ALVIN ELISABETH-[email or web address] -[id number]) Nutritional Asmnt/Malnutrition Patient General Information Nutritional Screening Moderate Risk Diagnosis Psychosis Pertinent Medical Hx/Surgical Hx COPD, Chronic Pain Syndrome, Constipation, s/p Thyroid surgery Subjective Information Pt is a 69-year-old male admitted on 01/22 d/t aggressive behavior and refusing most things. Pt is eating an estimated 90% of meals since admit date (x5 days) Per Meal/Nutrition Activity Record. Dietary is currently providing an estimated 2550 kcals and 120 gm Pro, per Pt PO intake this is providing an estimated 2000 kcals and 108gm Pro to meet 100+% kcal and 100+% Pro needs- adequate to promote gradual weight gain trending towards IBW. Will continue to monitor PO intake and weight trend. Adding Ensure Enlive to dinner tray to support gradual weight gain. Visited pt in community room today, he was reading a newspaper. Upon introduction of myself he told me to go away and get out , when I tried again he got more demanding that I leave, unable to perform nutrition focused physical exam, pt agitated with a hoodie on, the miller covering much of his face. Spoke with charge nurse Alesia concerning more recent labs. Anthropometrics HT: 58 WT: 118 LB (53.64 kg) BMI: 18.03 (underweight) GI/ Skin Integrity GI: WNL, Soft, Flat BM: 01/27 x1 I/O: 1140/Not Noted Skin: WNL, Intact Adán: 19 Diet Order: Regular Estimated Energy Needs: ( underweight, CBW) 1918-0162 kcals (30-35 kcals/ kg) 65-70g Pro (1.2-1.3 g/kg) 5985-7957 ml (30-35 ml/kg) Current Diet Order/ Nutrition Support Regular Pertinent Medications Maalox (PRN), Albuterol (PRN), Dulcolax (PRN), MOM (PRN), Theragran Pertinent Labs 12/01: Alk Phos 281, Albumin 2. 9 Nutritional Hx/Data Height 1.73 m Height (Calculated Centimeters) 172.7 Current Weight (lbs) 53.72 kg Weight (Calculated Kilograms) 53.7 Weight (Calculated Grams) 01604.5 [place] Body Weight 154 LB (70 kg) % [place] Body Weight 77 Body Mass Index (BMI) 18.0 Weight Status Underweight GI Symptoms Last BM 01/27 x1 Skin Integrity/Comment: Skin: WNL, Intact Adán: 19 Current %PO Good (75-100%) Estimated Nutritional Goals BEE in Kcals: Using Current wt Calories/Kcals/Kg 30-35 Kcals Calculated 8832-3974 Protein: Using Current wt Protein g/k.2-1.3 Protein Calculated 65-70 Fluid: ml 6294-2042 Nutritional Problem 1. Problem Problem Underweight Etiology r/t consistent underconsumption of energy needs Signs/Symptoms: aeb BMI <18.50 (18.03). Intervention/Recommendation Comments 1.Continue Regular diet as tolerated. 2.Weekly weight. 3.Add Ensure to dinner tray ( completed). Expected Outcomes/Goals Expected Outcomes/Goals 1.PO intake to continue to meet >75% of estimated nutritional needs. 2.Gradual weight gain (0.5-1.0 LB /week) trending toward IBW preferred. 3.Monitor PO intake, wt, nutrition related labs, and skin integrity. 4.F/U as moderate risk in 3-5 days, 01/31-02/02.
--- NOTE | 2020-02-06 17:23 | Progress Notes ---
DATE: 02/06/2020 SUBJECTIVE: A 69-year-old male, currently in the hospital, calm right now, sleeping but arousable, confused, disoriented. Staff noting some improvement, generally calmer. Time was spent with the patient, but he is pretty confused, ruminative, circumstantial thought processes. Fair sleep and appetite, taking his medications, medications were noted. Medications were reviewed. Labs were reviewed. Vitals were reviewed. I evaluated him for any medication side effects, none noted at this time. No EPS, no akathisia. I discussed with staff. Staff noting he has been redirectable, generally calmer. MENTAL STATUS EXAMINATION: Stated age. Fair eye contact. Mood "okay." Sleeping, but arousable. No overt SI or HI. Psychotic symptoms improving. Disorientation noted. DIAGNOSIS: No change. PLAN: We will continue inpatient monitoring. Pending a safe disposition, likely approaching his baseline. JOB# [id number]
[2020-02-07] MEDS: Multivitamin Tab PO SCH (08:36)
--- NOTE | 2020-02-07 23:31 | Internal Medicine Prog Note ---
Internal Medicine Subjective - Subjective Patient seen and examined:: with staff, chart reviewed Patient is:: awake, verbal, interactive Per staff patient has:: no adverse event, no episodes of fall, poor oral intake , tolerating meds Internal Medicine Objective - Physical Exam Vitals and I&O: Vital Signs Temp 98.1 F 02/04/20 14:00 Pulse 66 02/04/20 14:00 Resp 18 02/04/20 14:00 BP 116/57 02/04/20 14:00 Pulse Ox 93 02/04/20 14:00 Intake & Output 02/07/20 02/07/20 02/08/20 06:59 18:59 06:59 Intake Total 240 1000 240 Balance 240 1000 240 Intake: Oral 240 1000 240 Other: # Voids 1 4 1 # Bowel Movements 0 1 Active Medications: Current Medications Acetaminophen (Tylenol) 650 mg PO Q4H PRN PRN Reason: Pain (Mild 1-3) Stop: 03/23/20 13:04 Last Admin: 01/25/20 10:02 Dose: 650 mg Al Hydrox/Mg Hydrox/Simethicone (Maalox) 30 ml PO Q6H PRN PRN Reason: Dyspepsia Stop: 03/23/20 13:04 Albuterol Sulfate (Albuterol 2.5mg/3ml Neb Ud) 2.5 mg HHN Q6HR PRN PRN Reason: SOB DUE TO Cough Stop: 03/23/20 13:04 Bisacodyl (Dulcolax 10 Mg Supp) 10 mg RC DAILY PRN PRN Reason: IF MOM IS INEFFECTIVE Stop: 03/23/20 13:04 Guaifenesin/Dextromethorphan (Robitussin Dm) 5 ml PO Q6H PRN PRN Reason: Cough Stop: 03/23/20 13:04 Last Admin: 02/03/20 22:03 Dose: 5 ml Hyoscyamine Sulfate (Levsin) 0.125 mg PO Q6HR PRN PRN Reason: GI tract spasms. Lorazepam (Ativan) 0.5 mg PO Q4HR PRN; Protocol PRN Reason: Anxiety Stop: 03/23/20 13:04 Last Admin: 01/25/20 16:29 Dose: 0.5 mg Magnesium Hydroxide (Milk Of Magnesia) 30 ml PO HS PRN PRN Reason: Constipation Stop: 03/23/20 13:04 Last Admin: 01/26/20 21:09 Dose: 30 ml Multivitamins/Vitamin C (Theragran) 1 tab PO DAILY IRAIS Stop: 03/24/20 08:59 Last Admin: 02/07/20 08:36 Dose: 1 tab Quetiapine Fumarate 200 mg/ (Quetiapine Fumarate 50 mg) 250 mg PO HS IRAIS Stop: 04/03/20 20:59 Last Admin: 02/07/20 21:11 Dose: Not Given Zolpidem Tartrate (Ambien) 5 mg PO HS PRN PRN Reason: Insomnia Stop: 03/23/20 13:04 Last Admin: 02/05/20 20:48 Dose: 5 mg General: demented HEENT: NC/AT, PERRLA Neck: Supple, No JVD Lungs: CTAB Cardiovascular: RRR, Normal S1, Normal S2, with murmur Abdomen: soft, non-distended, positive bowel sound Extremities: excoriation Neurological: no change Internal Medicine Assmt/Plan - Assessment Assessment: ASSESSMENT AND PLAN: Alzheimer's dementia, history of anemia, dysphagia, chronic pain syndrome, chronic low back pain, elevated liver function tests, chronic obstructive pulmonary disease, constipation. - Plan Plan: PLAN: We will review the patient's medication. We will place the patient on albuterol and Atrovent as needed basis. We will monitor hemoglobin and hematocrit. We will place the patient on aspiration precaution. We will continue to monitor the patient closely with you, Dr. Davis. Nutritional Asmnt/Malnutr-PDOC - Dietary Evaluation Malnutrition Findings (Please click <Entered> for more info): Nutritional Asmnt/Malnutrition Start: 01/29/20 16: 00 Text: Status: Complete Freq: Protocol: Document 01/29/20 16:00 ALVIN (Rec: 01/29/20 16:03 ALVIN ELISABETH-CTXTS -[id number]) Nutritional Asmnt/Malnutrition Patient General Information Nutritional Screening Moderate Risk Diagnosis Psychosis Pertinent Medical Hx/Surgical Hx COPD, Chronic Pain Syndrome, Constipation, s/p Thyroid surgery Subjective Information Pt is a 69-year-old male admitted on 01/22 d/t aggressive behavior and refusing most things. Pt is eating an estimated 90% of meals since admit date (x5 days) Per Meal/Nutrition Activity Record. Dietary is currently providing an estimated 2550 kcals and 120 gm Pro, per Pt PO intake this is providing an estimated 2000 kcals and 108gm Pro to meet 100+% kcal and 100+% Pro needs- adequate to promote gradual weight gain trending towards IBW. Will continue to monitor PO intake and weight trend. Adding Ensure Enlive to dinner tray to support gradual weight gain. Visited pt in community room today, he was reading a newspaper. Upon introduction of myself he told me to go away and get out , when I tried again he got more demanding that I leave, unable to perform nutrition focused physical exam, pt agitated with a hoodie on, the miller covering much of his face. Spoke with charge nurse Alesia concerning more recent labs. Anthropometrics HT: 58 WT: 118 LB (53.64 kg) BMI: 18.03 (underweight) GI/ Skin Integrity GI: WNL, Soft, Flat BM: 01/27 x1 I/O: 1140/Not Noted Skin: WNL, Intact Adán: 19 Diet Order: Regular Estimated Energy Needs: ( underweight, CBW) 7699-6524 kcals (30-35 kcals/ kg) 65-70g Pro (1.2-1.3 g/kg) 7077-7534 ml (30-35 ml/kg) Current Diet Order/ Nutrition Support Regular Pertinent Medications Maalox (PRN), Albuterol (PRN), Dulcolax (PRN), MOM (PRN), Theragran Pertinent Labs 12/01: Alk Phos 281, Albumin 2. 9 Nutritional Hx/Data Height 1.73 m Height (Calculated Centimeters) 172.7 Current Weight (lbs) 53.72 kg Weight (Calculated Kilograms) 53.7 Weight (Calculated Grams) 29872.5 [place] Body Weight 154 LB (70 kg) % [place] Body Weight 77 Body Mass Index (BMI) 18.0 Weight Status Underweight GI Symptoms Last BM 01/27 x1 Skin Integrity/Comment: Skin: WNL, Intact Adán: 19 Current %PO Good (75-100%) Estimated Nutritional Goals BEE in Kcals: Using Current wt Calories/Kcals/Kg 30-35 Kcals Calculated 6099-1365 Protein: Using Current wt Protein g/k.2-1.3 Protein Calculated 65-70 Fluid: ml 8136-2945 Nutritional Problem 1. Problem Problem Underweight Etiology r/t consistent underconsumption of energy needs Signs/Symptoms: aeb BMI <18.50 (18.03). Intervention/Recommendation Comments 1.Continue Regular diet as tolerated. 2.Weekly weight. 3.Add Ensure to dinner tray ( completed). Expected Outcomes/Goals Expected Outcomes/Goals 1.PO intake to continue to meet >75% of estimated nutritional needs. 2.Gradual weight gain (0.5-1.0 LB /week) trending toward IBW preferred. 3.Monitor PO intake, wt, nutrition related labs, and skin integrity. 4.F/U as moderate risk in 3-5 days, 01/31-02/02.
--- NOTE | 2020-02-07 23:48 | Progress Notes ---
DATE: 02/07/2020 COVERING FOR: Jarocho Davis MD SUBJECTIVE: The patient was interviewed. Case was discussed with staff. Chart and records were reviewed. The patient, per staff, continues to have mood swings, has episodes of angry, outbursts, uncooperative and refusing medications at times. The patient was interviewed this morning in the day room. The patient is very angry for no apparent reason. He was unwilling to cooperate with this provider, he states "no" when asked simple questions to the patient, looks away from this provider in a very angry affect and unwilling to cooperate much more than this. MENTAL STATUS EXAMINATION: The patient is an elderly male sitting in the day room chair, uncooperative with the interview, appears to be with angered mood and constricted affect. Thought processes somewhat concrete. Unable to assess for suicidal or homicidal thoughts. Insight, judgment and impulse control appears to be poor. Alert and oriented x 2. ASSESSMENT: The patient is a 69-year-old male admitted to [facility] since 01/23/2020 after becoming increasingly confused, agitated and aggressive towards staff at his facility. The patient at this time continues with acute mood swings and angry episodes, however, less behavioral outburst. He appears to be tolerating his medications well. He appears to still need redirection, but less so overall disorganized and no plan for self-care. PLAN: We will continue the patient's acute hospitalization. We will continue medications as prescribed. We will encourage the patient to verbalize his needs and participate in group and milieu therapy. [facility]# [id number]
[2020-02-08] MEDS: Multivitamin Tab PO SCH (08:07)
--- NOTE | 2020-02-08 08:46 | Progress Notes ---
DATE: 02/08/2020 SUBJECTIVE: The patient is seen, chart reviewed, discussed with staff. The patient with ongoing anger outbursts, irritability, unruly, not wanting to take medications, not wanting to speak with me today. Essentially telling me to exit the room, angry affect, unwilling to cooperate with the interview. Staff noting not wanting to take his night medications. Medications were reviewed. Labs were reviewed. Vitals were reviewed. Sometimes refusing vitals. Most recent vitals, 114/69 blood pressure, pulse of 72. No overt medication side effects. The patient is on Seroquel 250 mg at bedtime, but he has been refusing to take this. I will attempt to give him his Seroquel earlier in the daytime, perhaps he will be more amenable to taking it. MENTAL STATUS EXAMINATION: Stated age, unruly, confused appearing, not really wanting to engage with me this morning. Poor impulse control. Poor orientation to name, place. ASSESSMENT: A 69-year-old male coming in to the hospital, confusion, aggressive behaviors, unruly behaviors, oppositional, now refusing nighttime dosing of medications. PLAN: We will continue hospitalization. We will give Seroquel earlier. Continue to work on the patient's irritability, anger. DICTATION ENDS HERE JOB# [id number]
--- NOTE | 2020-02-08 12:55 | Internal Medicine Prog Note ---
Internal Medicine Subjective - Subjective Patient seen and examined:: with staff, chart reviewed Patient is:: awake, verbal, interactive Per staff patient has:: no adverse event, no episodes of fall, poor oral intake , tolerating meds Internal Medicine Objective - Physical Exam Vitals and I&O: Vital Signs Temp 97.3 F 02/08/20 05:55 Pulse 72 02/08/20 05:55 Resp 20 02/08/20 05:55 BP 114/69 02/08/20 05:55 Pulse Ox 96 02/08/20 05:55 Intake & Output 02/07/20 02/08/20 02/08/20 18:59 06:59 18:59 Intake Total 1000 360 Balance 1000 360 Intake: Oral 1000 360 Other: # Voids 4 1 # Bowel Movements 1 0 Active Medications: Current Medications Acetaminophen (Tylenol) 650 mg PO Q4H PRN PRN Reason: Pain (Mild 1-3) Stop: 03/23/20 13:04 Last Admin: 01/25/20 10:02 Dose: 650 mg Al Hydrox/Mg Hydrox/Simethicone (Maalox) 30 ml PO Q6H PRN PRN Reason: Dyspepsia Stop: 03/23/20 13:04 Albuterol Sulfate (Albuterol 2.5mg/3ml Neb Ud) 2.5 mg HHN Q6HR PRN PRN Reason: SOB DUE TO Cough Stop: 03/23/20 13:04 Bisacodyl (Dulcolax 10 Mg Supp) 10 mg RC DAILY PRN PRN Reason: IF MOM IS INEFFECTIVE Stop: 03/23/20 13:04 Guaifenesin/Dextromethorphan (Robitussin Dm) 5 ml PO Q6H PRN PRN Reason: Cough Stop: 03/23/20 13:04 Last Admin: 02/03/20 22:03 Dose: 5 ml Hyoscyamine Sulfate (Levsin) 0.125 mg PO Q6HR PRN PRN Reason: GI tract spasms. Lorazepam (Ativan) 0.5 mg PO Q4HR PRN; Protocol PRN Reason: Anxiety Stop: 03/23/20 13:04 Last Admin: 01/25/20 16:29 Dose: 0.5 mg Magnesium Hydroxide (Milk Of Magnesia) 30 ml PO HS PRN PRN Reason: Constipation Stop: 03/23/20 13:04 Last Admin: 01/26/20 21:09 Dose: 30 ml Multivitamins/Vitamin C (Theragran) 1 tab PO DAILY IRAIS Stop: 03/24/20 08:59 Last Admin: 02/08/20 08:07 Dose: 1 tab Quetiapine Fumarate 200 mg/ (Quetiapine Fumarate 50 mg) 250 mg PO DAILY IRAIS Stop: 04/09/20 08:59 Zolpidem Tartrate (Ambien) 5 mg PO HS PRN PRN Reason: Insomnia Stop: 03/23/20 13:04 Last Admin: 02/05/20 20:48 Dose: 5 mg General: demented HEENT: NC/AT, PERRLA Neck: Supple, No JVD Lungs: CTAB Cardiovascular: RRR, Normal S1, Normal S2, with murmur Abdomen: soft, non-distended, positive bowel sound Extremities: excoriation Neurological: no change Internal Medicine Assmt/Plan - Assessment Assessment: ASSESSMENT AND PLAN: Alzheimer's dementia, history of anemia, dysphagia, chronic pain syndrome, chronic low back pain, elevated liver function tests, chronic obstructive pulmonary disease, constipation. - Plan Plan: PLAN: We will review the patient's medication. We will place the patient on albuterol and Atrovent as needed basis. We will monitor hemoglobin and hematocrit. We will place the patient on aspiration precaution. We will continue to monitor the patient closely with you, Dr. Davis. Nutritional Asmnt/Malnutr-PDOC - Dietary Evaluation Malnutrition Findings (Please click <Entered> for more info): Nutritional Asmnt/Malnutrition Start: 01/29/20 16: 00 Text: Status: Complete Freq: Protocol: Document 01/29/20 16:00 ALVIN (Rec: 01/29/20 16:03 ALVIN ELISABETH-CTXTS -[id number]) Nutritional Asmnt/Malnutrition Patient General Information Nutritional Screening Moderate Risk Diagnosis Psychosis Pertinent Medical Hx/Surgical Hx COPD, Chronic Pain Syndrome, Constipation, s/p Thyroid surgery Subjective Information Pt is a 69-year-old male admitted on 01/22 d/t aggressive behavior and refusing most things. Pt is eating an estimated 90% of meals since admit date (x5 days) Per Meal/Nutrition Activity Record. Dietary is currently providing an estimated 2550 kcals and 120 gm Pro, per Pt PO intake this is providing an estimated 2000 kcals and 108gm Pro to meet 100+% kcal and 100+% Pro needs- adequate to promote gradual weight gain trending towards IBW. Will continue to monitor PO intake and weight trend. Adding Ensure Enlive to dinner tray to support gradual weight gain. Visited pt in community room today, he was reading a newspaper. Upon introduction of myself he told me to go away and get out , when I tried again he got more demanding that I leave, unable to perform nutrition focused physical exam, pt agitated with a hoodie on, the miller covering much of his face. Spoke with charge nurse Alesia concerning more recent labs. Anthropometrics HT: 58 WT: 118 LB (53.64 kg) BMI: 18.03 (underweight) GI/ Skin Integrity GI: WNL, Soft, Flat BM: 01/27 x1 I/O: 1140/Not Noted Skin: WNL, Intact Adán: 19 Diet Order: Regular Estimated Energy Needs: ( underweight, CBW) 0299-8235 kcals (30-35 kcals/ kg) 65-70g Pro (1.2-1.3 g/kg) 7171-7460 ml (30-35 ml/kg) Current Diet Order/ Nutrition Support Regular Pertinent Medications Maalox (PRN), Albuterol (PRN), Dulcolax (PRN), MOM (PRN), Theragran Pertinent Labs 12/01: Alk Phos 281, Albumin 2. 9 Nutritional Hx/Data Height 1.73 m Height (Calculated Centimeters) 172.7 Current Weight (lbs) 53.72 kg Weight (Calculated Kilograms) 53.7 Weight (Calculated Grams) 32567.5 [place] Body Weight 154 LB (70 kg) % [place] Body Weight 77 Body Mass Index (BMI) 18.0 Weight Status Underweight GI Symptoms Last BM 01/27 x1 Skin Integrity/Comment: Skin: WNL, Intact Adán: 19 Current %PO Good (75-100%) Estimated Nutritional Goals BEE in Kcals: Using Current wt Calories/Kcals/Kg 30-35 Kcals Calculated 9237-2916 Protein: Using Current wt Protein g/k.2-1.3 Protein Calculated 65-70 Fluid: ml 2620-5196 Nutritional Problem 1. Problem Problem Underweight Etiology r/t consistent underconsumption of energy needs Signs/Symptoms: aeb BMI <18.50 (18.03). Intervention/Recommendation Comments 1.Continue Regular diet as tolerated. 2.Weekly weight. 3.Add Ensure to dinner tray ( completed). Expected Outcomes/Goals Expected Outcomes/Goals 1.PO intake to continue to meet >75% of estimated nutritional needs. 2.Gradual weight gain (0.5-1.0 LB /week) trending toward IBW preferred. 3.Monitor PO intake, wt, nutrition related labs, and skin integrity. 4.F/U as moderate risk in 3-5 days, 01/31-02/02.
[2020-02-09] MEDS: Multivitamin Tab PO SCH (08:35)
--- NOTE | 2020-02-09 13:23 | Internal Medicine Prog Note ---
Internal Medicine Subjective - Subjective Patient seen and examined:: with staff, chart reviewed Patient is:: awake, verbal, interactive Per staff patient has:: no adverse event, no episodes of fall, poor oral intake , tolerating meds Internal Medicine Objective - Physical Exam Vitals and I&O: Vital Signs Temp 97.3 F 02/09/20 06:04 Pulse 71 02/09/20 06:04 Resp 20 02/09/20 06:04 BP 116/58 02/09/20 06:04 Pulse Ox 98 02/09/20 06:04 Intake & Output 02/08/20 02/09/20 02/09/20 18:59 06:59 18:59 Intake Total 1050 360 Balance 1050 360 Intake: Oral 1050 360 Other: # Voids 1 # Bowel Movements 0 Active Medications: Current Medications Acetaminophen (Tylenol) 650 mg PO Q4H PRN PRN Reason: Pain (Mild 1-3) Stop: 03/23/20 13:04 Last Admin: 01/25/20 10:02 Dose: 650 mg Al Hydrox/Mg Hydrox/Simethicone (Maalox) 30 ml PO Q6H PRN PRN Reason: Dyspepsia Stop: 03/23/20 13:04 Albuterol Sulfate (Albuterol 2.5mg/3ml Neb Ud) 2.5 mg HHN Q6HR PRN PRN Reason: SOB DUE TO Cough Stop: 03/23/20 13:04 Bisacodyl (Dulcolax 10 Mg Supp) 10 mg RC DAILY PRN PRN Reason: IF MOM IS INEFFECTIVE Stop: 03/23/20 13:04 Guaifenesin/Dextromethorphan (Robitussin Dm) 5 ml PO Q6H PRN PRN Reason: Cough Stop: 03/23/20 13:04 Last Admin: 02/03/20 22:03 Dose: 5 ml Hyoscyamine Sulfate (Levsin) 0.125 mg PO Q6HR PRN PRN Reason: GI tract spasms. Lorazepam (Ativan) 0.5 mg PO Q4HR PRN; Protocol PRN Reason: Anxiety Stop: 03/23/20 13:04 Last Admin: 02/08/20 21:15 Dose: 0.5 mg Magnesium Hydroxide (Milk Of Magnesia) 30 ml PO HS PRN PRN Reason: Constipation Stop: 03/23/20 13:04 Last Admin: 01/26/20 21:09 Dose: 30 ml Multivitamins/Vitamin C (Theragran) 1 tab PO DAILY IRAIS Stop: 03/24/20 08:59 Last Admin: 02/09/20 08:35 Dose: 1 tab Quetiapine Fumarate 200 mg/ (Quetiapine Fumarate 50 mg) 250 mg PO DAILY IRAIS Stop: 04/09/20 08:59 Last Admin: 02/09/20 08:35 Dose: 250 mg Zolpidem Tartrate (Ambien) 5 mg PO HS PRN PRN Reason: Insomnia Stop: 03/23/20 13:04 Last Admin: 02/05/20 20:48 Dose: 5 mg General: demented HEENT: NC/AT, PERRLA Neck: Supple, No JVD Lungs: CTAB Cardiovascular: RRR, Normal S1, Normal S2, with murmur Abdomen: soft, non-distended, positive bowel sound Extremities: excoriation Neurological: no change Internal Medicine Assmt/Plan - Assessment Assessment: ASSESSMENT AND PLAN: Alzheimer's dementia, history of anemia, dysphagia, chronic pain syndrome, chronic low back pain, elevated liver function tests, chronic obstructive pulmonary disease, constipation. - Plan Plan: PLAN: We will review the patient's medication. We will place the patient on albuterol and Atrovent as needed basis. We will monitor hemoglobin and hematocrit. We will place the patient on aspiration precaution. We will continue to monitor the patient closely with you, Dr. Davis. Nutritional Asmnt/Malnutr-PDOC - Dietary Evaluation Malnutrition Findings (Please click <Entered> for more info): Nutritional Asmnt/Malnutrition Start: 01/29/20 16: 00 Text: Status: Complete Freq: Protocol: Document 01/29/20 16:00 ALVIN (Rec: 01/29/20 16:03 ALVIN ELISABETH-CTXTS -[id number]) Nutritional Asmnt/Malnutrition Patient General Information Nutritional Screening Moderate Risk Diagnosis Psychosis Pertinent Medical Hx/Surgical Hx COPD, Chronic Pain Syndrome, Constipation, s/p Thyroid surgery Subjective Information Pt is a 69-year-old male admitted on 01/22 d/t aggressive behavior and refusing most things. Pt is eating an estimated 90% of meals since admit date (x5 days) Per Meal/Nutrition Activity Record. Dietary is currently providing an estimated 2550 kcals and 120 gm Pro, per Pt PO intake this is providing an estimated 2000 kcals and 108gm Pro to meet 100+% kcal and 100+% Pro needs- adequate to promote gradual weight gain trending towards IBW. Will continue to monitor PO intake and weight trend. Adding Ensure Enlive to dinner tray to support gradual weight gain. Visited pt in community room today, he was reading a newspaper. Upon introduction of myself he told me to go away and get out , when I tried again he got more demanding that I leave, unable to perform nutrition focused physical exam, pt agitated with a hoodie on, the miller covering much of his face. Spoke with charge nurse Alesia concerning more recent labs. Anthropometrics HT: 58 WT: 118 LB (53.64 kg) BMI: 18.03 (underweight) GI/ Skin Integrity GI: WNL, Soft, Flat BM: 01/27 x1 I/O: 1140/Not Noted Skin: WNL, Intact Adán: 19 Diet Order: Regular Estimated Energy Needs: ( underweight, CBW) 8809-3636 kcals (30-35 kcals/ kg) 65-70g Pro (1.2-1.3 g/kg) 4563-0450 ml (30-35 ml/kg) Current Diet Order/ Nutrition Support Regular Pertinent Medications Maalox (PRN), Albuterol (PRN), Dulcolax (PRN), MOM (PRN), Theragran Pertinent Labs 12/01: Alk Phos 281, Albumin 2. 9 Nutritional Hx/Data Height 1.73 m Height (Calculated Centimeters) 172.7 Current Weight (lbs) 53.72 kg Weight (Calculated Kilograms) 53.7 Weight (Calculated Grams) 10983.5 [place] Body Weight 154 LB (70 kg) % [place] Body Weight 77 Body Mass Index (BMI) 18.0 Weight Status Underweight GI Symptoms Last BM 01/27 x1 Skin Integrity/Comment: Skin: WNL, Intact Adán: 19 Current %PO Good (75-100%) Estimated Nutritional Goals BEE in Kcals: Using Current wt Calories/Kcals/Kg 30-35 Kcals Calculated 5026-3823 Protein: Using Current wt Protein g/k.2-1.3 Protein Calculated 65-70 Fluid: ml 9352-3259 Nutritional Problem 1. Problem Problem Underweight Etiology r/t consistent underconsumption of energy needs Signs/Symptoms: aeb BMI <18.50 (18.03). Intervention/Recommendation Comments 1.Continue Regular diet as tolerated. 2.Weekly weight. 3.Add Ensure to dinner tray ( completed). Expected Outcomes/Goals Expected Outcomes/Goals 1.PO intake to continue to meet >75% of estimated nutritional needs. 2.Gradual weight gain (0.5-1.0 LB /week) trending toward IBW preferred. 3.Monitor PO intake, wt, nutrition related labs, and skin integrity. 4.F/U as moderate risk in 3-5 days, 01/31-02/02.
--- NOTE | 2020-02-09 13:59 | Progress Notes ---
DATE: 02/09/2020 SUBJECTIVE: The patient in the hospital, remains symptomatic, irritable at times, unruly, but generally redirectable, likely approaching his baseline. We are trying to get him to a senior living facility, but COVID-19 testing is holding up his admission. The patient attest to some frustration, but otherwise mostly calm, likely at his baseline. Fair sleep and appetite. Discussed with nursing staff at length. He seems to be showing some signs of improvement and has been generally more redirectable. Medications were reviewed. Vitals were reviewed. Labs reviewed. No overt side effects. No EPS, no akathisia noted on exam. MENTAL STATUS EXAMINATION: -[place] male, stated age, fair eye contact, some disorientation. Mood "okay." Affect flat. Better impulse control. No SI, no HI. No psychosis. ASSESSMENT: A 69-year-old male, currently in the hospital, seems to be calmer, amenable to treatment. I made some adjustments to his medications while he has been here, still irritable, unruly, but staff is able to redirect him with more ease. PLAN: We will continue inpatient monitoring, coordinating care with social science manager to try to step him down to a lower level of care. JOB# [id number]
[2020-02-10] MEDS: Multivitamin Tab PO SCH ×2 (08:13→08:18)
--- NOTE | 2020-02-10 12:30 | Progress Notes ---
DATE: 02/10/2020 SUBJECTIVE: A 69-year-old male, currently in the hospital, seems to be approaching his baseline, some irritability, but mostly calm, still pending COVID-19 testing. He got one test, apparently needs another one. He still preoccupied, paranoid, poorly oriented, confused, hostile verbally towards staff, but not particularly combative. No overt SI or HI, seems to be approaching his baseline. I spoke with staff and notes that he is calmer, redirectable. Medications were reviewed. Labs were reviewed. Vitals were reviewed. Blood pressure 123/72, pulse of 70. No EPS, no akathisia. MENTAL STATUS EXAMINATION: -[place]ian male of stated age, fair eye contact, calm and disoriented. No overt SI or HI, still mumbling to self. Better impulse control, somewhat irritable on [id number]. ASSESSMENT: A 69-year-old male likely history of chronic mental illness, but history is unclear, stabilized to a large extent on Seroquel. PLAN: We will continue inpatient monitoring. We will hold off on any further medication adjustments, pending COVID-19 testing, safe disposition planning. JOB# [id number]
--- NOTE | 2020-02-10 12:42 | Internal Medicine Prog Note ---
Internal Medicine Subjective - Subjective Patient seen and examined:: with staff, chart reviewed Patient is:: awake, verbal, interactive Per staff patient has:: no adverse event, no episodes of fall, poor oral intake , tolerating meds Internal Medicine Objective - Physical Exam Vitals and I&O: Vital Signs Temp 96.8 F 02/10/20 06:10 Pulse 70 02/10/20 06:10 Resp 18 02/10/20 08:00 BP 123/72 02/10/20 06:10 Pulse Ox 93 02/10/20 06:10 Intake & Output 02/09/20 02/10/20 02/10/20 18:59 06:59 18:59 Intake Total 1200 360 Balance 1200 360 Intake: Oral 960 360 Other 240 Other: # Voids 3 1 # Bowel Movements 0 0 Active Medications: Current Medications Acetaminophen (Tylenol) 650 mg PO Q4H PRN PRN Reason: Pain (Mild 1-3) Stop: 03/23/20 13:04 Last Admin: 01/25/20 10:02 Dose: 650 mg Al Hydrox/Mg Hydrox/Simethicone (Maalox) 30 ml PO Q6H PRN PRN Reason: Dyspepsia Stop: 03/23/20 13:04 Albuterol Sulfate (Albuterol 2.5mg/3ml Neb Ud) 2.5 mg HHN Q6HR PRN PRN Reason: SOB DUE TO Cough Stop: 03/23/20 13:04 Bisacodyl (Dulcolax 10 Mg Supp) 10 mg RC DAILY PRN PRN Reason: IF MOM IS INEFFECTIVE Stop: 03/23/20 13:04 Guaifenesin/Dextromethorphan (Robitussin Dm) 5 ml PO Q6H PRN PRN Reason: Cough Stop: 03/23/20 13:04 Last Admin: 02/03/20 22:03 Dose: 5 ml Hyoscyamine Sulfate (Levsin) 0.125 mg PO Q6HR PRN PRN Reason: GI tract spasms. Lorazepam (Ativan) 0.5 mg PO Q4HR PRN; Protocol PRN Reason: Anxiety Stop: 03/23/20 13:04 Last Admin: 02/08/20 21:15 Dose: 0.5 mg Magnesium Hydroxide (Milk Of Magnesia) 30 ml PO HS PRN PRN Reason: Constipation Stop: 03/23/20 13:04 Last Admin: 01/26/20 21:09 Dose: 30 ml Multivitamins/Vitamin C (Theragran) 1 tab PO DAILY IRAIS Stop: 03/24/20 08:59 Last Admin: 02/10/20 08:18 Dose: Not Given Quetiapine Fumarate 200 mg/ (Quetiapine Fumarate 50 mg) 250 mg PO DAILY IRAIS Stop: 04/09/20 08:59 Last Admin: 02/10/20 08:18 Dose: Not Given Zolpidem Tartrate (Ambien) 5 mg PO HS PRN PRN Reason: Insomnia Stop: 03/23/20 13:04 Last Admin: 02/05/20 20:48 Dose: 5 mg General: demented HEENT: NC/AT, PERRLA Neck: Supple, No JVD Lungs: CTAB Cardiovascular: RRR, Normal S1, Normal S2, with murmur Abdomen: soft, non-distended, positive bowel sound Extremities: excoriation Neurological: no change Internal Medicine Assmt/Plan - Assessment Assessment: ASSESSMENT AND PLAN: Alzheimer's dementia, history of anemia, dysphagia, chronic pain syndrome, chronic low back pain, elevated liver function tests, chronic obstructive pulmonary disease, constipation. - Plan Plan: PLAN: We will review the patient's medication. We will place the patient on albuterol and Atrovent as needed basis. We will monitor hemoglobin and hematocrit. We will place the patient on aspiration precaution. We will continue to monitor the patient closely with you, Dr. Davis. Nutritional Asmnt/Malnutr-PDOC - Dietary Evaluation Malnutrition Findings (Please click <Entered> for more info): Nutritional Asmnt/Malnutrition Start: 01/29/20 16: 00 Text: Status: Complete Freq: Protocol: Document 01/29/20 16:00 ALVIN (Rec: 01/29/20 16:03 ALVIN ELISABETH-CTXTS -02) Nutritional Asmnt/Malnutrition Patient General Information Nutritional Screening Moderate Risk Diagnosis Psychosis Pertinent Medical Hx/Surgical Hx COPD, Chronic Pain Syndrome, Constipation, s/p Thyroid surgery Subjective Information Pt is a 69-year-old male admitted on 01/22 d/t aggressive behavior and refusing most things. Pt is eating an estimated 90% of meals since admit date (x5 days) Per Meal/Nutrition Activity Record. Dietary is currently providing an estimated 2550 kcals and 120 gm Pro, per Pt PO intake this is providing an estimated 2000 kcals and 108gm Pro to meet 100+% kcal and 100+% Pro needs- adequate to promote gradual weight gain trending towards IBW. Will continue to monitor PO intake and weight trend. Adding Ensure Enlive to dinner tray to support gradual weight gain. Visited pt in community room today, he was reading a newspaper. Upon introduction of myself he told me to go away and get out , when I tried again he got more demanding that I leave, unable to perform nutrition focused physical exam, pt agitated with a hoodie on, the miller covering much of his face. Spoke with charge nurse Alesia concerning more recent labs. Anthropometrics HT: 58 WT: 118 LB (53.64 kg) BMI: 18.03 (underweight) GI/ Skin Integrity GI: WNL, Soft, Flat BM: 01/27 x1 I/O: 1140/Not Noted Skin: WNL, Intact Adán: 19 Diet Order: Regular Estimated Energy Needs: ( underweight, CBW) 6450-3670 kcals (30-35 kcals/ kg) 65-70g Pro (1.2-1.3 g/kg) 9545-6243 ml (30-35 ml/kg) Current Diet Order/ Nutrition Support Regular Pertinent Medications Maalox (PRN), Albuterol (PRN), Dulcolax (PRN), MOM (PRN), Theragran Pertinent Labs 12/01: Alk Phos 281, Albumin 2. 9 Nutritional Hx/Data Height 1.73 m Height (Calculated Centimeters) 172.7 Current Weight (lbs) 53.72 kg Weight (Calculated Kilograms) 53.7 Weight (Calculated Grams) 59313.5 [place] Body Weight 154 LB (70 kg) % [place] Body Weight 77 Body Mass Index (BMI) 18.0 Weight Status Underweight GI Symptoms Last BM 01/27 x1 Skin Integrity/Comment: Skin: WNL, Intact Adán: 19 Current %PO Good (75-100%) Estimated Nutritional Goals BEE in Kcals: Using Current wt Calories/Kcals/Kg 30-35 Kcals Calculated 8731-9604 Protein: Using Current wt Protein g/k.2-1.3 Protein Calculated 65-70 Fluid: ml 1206-1965 Nutritional Problem 1. Problem Problem Underweight Etiology r/t consistent underconsumption of energy needs Signs/Symptoms: aeb BMI <18.50 (18.03). Intervention/Recommendation Comments 1.Continue Regular diet as tolerated. 2.Weekly weight. 3.Add Ensure to dinner tray ( completed). Expected Outcomes/Goals Expected Outcomes/Goals 1.PO intake to continue to meet >75% of estimated nutritional needs. 2.Gradual weight gain (0.5-1.0 LB /week) trending toward IBW preferred. 3.Monitor PO intake, wt, nutrition related labs, and skin integrity. 4.F/U as moderate risk in 3-5 days, 01/31-02/02.
[2020-02-11] MEDS: Multivitamin Tab PO SCH ×2 (08:00→08:11)
--- NOTE | 2020-02-11 12:36 | Internal Medicine Prog Note ---
Internal Medicine Subjective - Subjective Patient seen and examined:: with staff, chart reviewed Patient is:: awake, verbal, interactive Per staff patient has:: no adverse event, no episodes of fall, poor oral intake , tolerating meds Internal Medicine Objective - Physical Exam Vitals and I&O: Vital Signs Temp 96.8 F 02/10/20 06:10 Pulse 70 02/10/20 06:10 Resp 20 02/11/20 08:00 BP 123/72 02/10/20 06:10 Pulse Ox 93 02/10/20 06:10 Intake & Output 02/10/20 02/11/20 02/11/20 18:59 06:59 18:59 Intake Total 1200 240 Balance 1200 240 Intake: Oral 1200 240 Other: # Voids 4 2 # Bowel Movements 1 0 Stool Characteristics Soft Brown Active Medications: Current Medications Acetaminophen (Tylenol) 650 mg PO Q4H PRN PRN Reason: Pain (Mild 1-3) Stop: 03/23/20 13:04 Last Admin: 01/25/20 10:02 Dose: 650 mg Al Hydrox/Mg Hydrox/Simethicone (Maalox) 30 ml PO Q6H PRN PRN Reason: Dyspepsia Stop: 03/23/20 13:04 Albuterol Sulfate (Albuterol 2.5mg/3ml Neb Ud) 2.5 mg HHN Q6HR PRN PRN Reason: SOB DUE TO Cough Stop: 03/23/20 13:04 Bisacodyl (Dulcolax 10 Mg Supp) 10 mg RC DAILY PRN PRN Reason: IF MOM IS INEFFECTIVE Stop: 03/23/20 13:04 Guaifenesin/Dextromethorphan (Robitussin Dm) 5 ml PO Q6H PRN PRN Reason: Cough Stop: 03/23/20 13:04 Last Admin: 02/03/20 22:03 Dose: 5 ml Hyoscyamine Sulfate (Levsin) 0.125 mg PO Q6HR PRN PRN Reason: GI tract spasms. Lorazepam (Ativan) 0.5 mg PO Q4HR PRN; Protocol PRN Reason: Anxiety Stop: 03/23/20 13:04 Last Admin: 02/08/20 21:15 Dose: 0.5 mg Magnesium Hydroxide (Milk Of Magnesia) 30 ml PO HS PRN PRN Reason: Constipation Stop: 03/23/20 13:04 Last Admin: 01/26/20 21:09 Dose: 30 ml Multivitamins/Vitamin C (Theragran) 1 tab PO DAILY IRAIS Stop: 03/24/20 08:59 Last Admin: 02/11/20 08:00 Dose: Not Given Quetiapine Fumarate 200 mg/ (Quetiapine Fumarate 50 mg) 250 mg PO DAILY IRAIS Stop: 04/09/20 08:59 Last Admin: 02/11/20 11:59 Dose: 250 mg Zolpidem Tartrate (Ambien) 5 mg PO HS PRN PRN Reason: Insomnia Stop: 03/23/20 13:04 Last Admin: 02/05/20 20:48 Dose: 5 mg General: demented HEENT: NC/AT, PERRLA Neck: Supple, No JVD Lungs: CTAB Cardiovascular: RRR, Normal S1, Normal S2, with murmur Abdomen: soft, non-distended, positive bowel sound Extremities: excoriation Neurological: no change Internal Medicine Assmt/Plan - Assessment Assessment: ASSESSMENT AND PLAN: Alzheimer's dementia, history of anemia, dysphagia, chronic pain syndrome, chronic low back pain, elevated liver function tests, chronic obstructive pulmonary disease, constipation. - Plan Plan: PLAN: We will review the patient's medication. We will place the patient on albuterol and Atrovent as needed basis. We will monitor hemoglobin and hematocrit. We will place the patient on aspiration precaution. We will continue to monitor the patient closely with you, Dr. Davis. Nutritional Asmnt/Malnutr-PDOC - Dietary Evaluation Malnutrition Findings (Please click <Entered> for more info): Nutritional Asmnt/Malnutrition Start: 01/29/20 16: 00 Text: Status: Complete Freq: Protocol: Document 01/29/20 16:00 ALVIN (Rec: 01/29/20 16:03 ALVIN ELISABETH-CTXTS -02) Nutritional Asmnt/Malnutrition Patient General Information Nutritional Screening Moderate Risk Diagnosis Psychosis Pertinent Medical Hx/Surgical Hx COPD, Chronic Pain Syndrome, Constipation, s/p Thyroid surgery Subjective Information Pt is a 69-year-old male admitted on 01/22 d/t aggressive behavior and refusing most things. Pt is eating an estimated 90% of meals since admit date (x5 days) Per Meal/Nutrition Activity Record. Dietary is currently providing an estimated 2550 kcals and 120 gm Pro, per Pt PO intake this is providing an estimated 2000 kcals and 108gm Pro to meet 100+% kcal and 100+% Pro needs- adequate to promote gradual weight gain trending towards IBW. Will continue to monitor PO intake and weight trend. Adding Ensure Enlive to dinner tray to support gradual weight gain. Visited pt in community room today, he was reading a newspaper. Upon introduction of myself he told me to go away and get out , when I tried again he got more demanding that I leave, unable to perform nutrition focused physical exam, pt agitated with a hoodie on, the miller covering much of his face. Spoke with charge nurse Alesia concerning more recent labs. Anthropometrics HT: 58 WT: 118 LB (53.64 kg) BMI: 18.03 (underweight) GI/ Skin Integrity GI: WNL, Soft, Flat BM: 01/27 x1 I/O: 1140/Not Noted Skin: WNL, Intact Adán: 19 Diet Order: Regular Estimated Energy Needs: ( underweight, CBW) 8824-5062 kcals (30-35 kcals/ kg) 65-70g Pro (1.2-1.3 g/kg) 1726-1744 ml (30-35 ml/kg) Current Diet Order/ Nutrition Support Regular Pertinent Medications Maalox (PRN), Albuterol (PRN), Dulcolax (PRN), MOM (PRN), Theragran Pertinent Labs 12/01: Alk Phos 281, Albumin 2. 9 Nutritional Hx/Data Height 1.73 m Height (Calculated Centimeters) 172.7 Current Weight (lbs) 53.72 kg Weight (Calculated Kilograms) 53.7 Weight (Calculated Grams) 45575.5 [place] Body Weight 154 LB (70 kg) % [place] Body Weight 77 Body Mass Index (BMI) 18.0 Weight Status Underweight GI Symptoms Last BM 01/27 x1 Skin Integrity/Comment: Skin: WNL, Intact Adán: 19 Current %PO Good (75-100%) Estimated Nutritional Goals BEE in Kcals: Using Current wt Calories/Kcals/Kg 30-35 Kcals Calculated 7084-1514 Protein: Using Current wt Protein g/k.2-1.3 Protein Calculated 65-70 Fluid: ml 0287-7714 Nutritional Problem 1. Problem Problem Underweight Etiology r/t consistent underconsumption of energy needs Signs/Symptoms: aeb BMI <18.50 (18.03). Intervention/Recommendation Comments 1.Continue Regular diet as tolerated. 2.Weekly weight. 3.Add Ensure to dinner tray ( completed). Expected Outcomes/Goals Expected Outcomes/Goals 1.PO intake to continue to meet >75% of estimated nutritional needs. 2.Gradual weight gain (0.5-1.0 LB /week) trending toward IBW preferred. 3.Monitor PO intake, wt, nutrition related labs, and skin integrity. 4.F/U as moderate risk in 3-5 days, 01/31-02/02.
[2020-02-11] MEDS ORDERED: Haloperidol Lactate 5 mg/mL 1mL Vial IM PRN (12:57)
--- NOTE | 2020-02-12 01:59 | Progress Notes ---
DATE: 02/11/2020 SUBJECTIVE: A 69-year-old male, currently in the hospital conserved, chronic schizophrenia. The patient is agitated, refusing medications, decompensating, more internally preoccupied, stating that the medications are hurting his body, stating that I should take the medications instead and that were punishing him and torturing him, becoming more delusional, seems to be decompensating from a psychiatric standpoint. I reviewed the conservatorship paperwork at length. He has been refusing medications for the past 1-2 days more consistently. Fair sleep and appetite, mostly keeps to self, mumbling to self, withdrawn. Staff noting he has been labile, more oppositional. Medications were reviewed. Labs were reviewed. Vitals were reviewed. Also reviewed legal paperwork, conservatorship paperwork to make sure we have tang to medicate. MENTAL STATUS EXAMINATION: Disheveled, unkempt, ruminative, paranoid, gets loud, very angry on exam, suspicious of others, believing that we are trying to harm him. ASSESSMENT: A 69-year-old male chronic mentally ill, conserved, decompensating, more frequent medication refusals. PLAN: We will put his Seroquel to b.i.d. dosing and add intramuscular backup of Haldol for medication refusals, discussed with staff as well to update them on the plan. JOB# [id number]
[2020-02-12] MEDS: Multivitamin Tab PO SCH (10:00)
[2020-02-12] MEDS ORDERED: Haloperidol Lactate 5 mg/mL 1mL Vial IM PRN (11:27)
--- NOTE | 2020-02-12 12:37 | Internal Medicine Prog Note ---
Internal Medicine Subjective - Subjective Patient seen and examined:: with staff, chart reviewed Patient is:: awake, verbal, interactive Per staff patient has:: no adverse event, no episodes of fall, poor oral intake , tolerating meds Internal Medicine Objective - Physical Exam Vitals and I&O: Vital Signs Temp 97.7 F 02/11/20 20:00 Pulse 87 02/11/20 20:00 Resp 18 02/11/20 20:00 BP 99/61 02/11/20 20:00 Pulse Ox 94 02/11/20 20:00 Intake & Output 02/11/20 02/12/20 02/12/20 18:59 06:59 18:59 Intake Total 1150 120 Balance 1150 120 Intake: Oral 1150 120 Other: # Voids 2 # Bowel Movements 0 Stool Characteristics Soft Brown Active Medications: Current Medications Acetaminophen (Tylenol) 650 mg PO Q4H PRN PRN Reason: Pain (Mild 1-3) Stop: 03/23/20 13:04 Last Admin: 01/25/20 10:02 Dose: 650 mg Al Hydrox/Mg Hydrox/Simethicone (Maalox) 30 ml PO Q6H PRN PRN Reason: Dyspepsia Stop: 03/23/20 13:04 Albuterol Sulfate (Albuterol 2.5mg/3ml Neb Ud) 2.5 mg HHN Q6HR PRN PRN Reason: SOB DUE TO Cough Stop: 03/23/20 13:04 Bisacodyl (Dulcolax 10 Mg Supp) 10 mg RC DAILY PRN PRN Reason: IF MOM IS INEFFECTIVE Stop: 03/23/20 13:04 Guaifenesin/Dextromethorphan (Robitussin Dm) 5 ml PO Q6H PRN PRN Reason: Cough Stop: 03/23/20 13:04 Last Admin: 02/03/20 22:03 Dose: 5 ml Haloperidol (Haldol) 5 mg PO BID IRAIS; Protocol Stop: 04/12/20 16:59 Haloperidol Lactate (Haldol) 3 mg IM BID PRN PRN Reason: Agitation If refused po meds. Stop: 04/11/20 12:56 Hyoscyamine Sulfate (Levsin) 0.125 mg PO Q6HR PRN PRN Reason: GI tract spasms. Lorazepam (Ativan) 0.5 mg PO Q4HR PRN; Protocol PRN Reason: Anxiety Stop: 03/23/20 13:04 Last Admin: 02/08/20 21:15 Dose: 0.5 mg Magnesium Hydroxide (Milk Of Magnesia) 30 ml PO HS PRN PRN Reason: Constipation Stop: 03/23/20 13:04 Last Admin: 01/26/20 21:09 Dose: 30 ml Multivitamins/Vitamin C (Theragran) 1 tab PO DAILY IRAIS Stop: 03/24/20 08:59 Last Admin: 02/12/20 10:00 Dose: Not Given Zolpidem Tartrate (Ambien) 5 mg PO HS PRN PRN Reason: Insomnia Stop: 03/23/20 13:04 Last Admin: 02/05/20 20:48 Dose: 5 mg General: demented HEENT: NC/AT, PERRLA Neck: Supple, No JVD Lungs: CTAB Cardiovascular: RRR, Normal S1, Normal S2, with murmur Abdomen: soft, non-distended, positive bowel sound Extremities: excoriation Neurological: no change Internal Medicine Assmt/Plan - Assessment Assessment: ASSESSMENT AND PLAN: Alzheimer's dementia, history of anemia, dysphagia, chronic pain syndrome, chronic low back pain, elevated liver function tests, chronic obstructive pulmonary disease, constipation. - Plan Plan: PLAN: We will review the patient's medication. We will place the patient on albuterol and Atrovent as needed basis. We will monitor hemoglobin and hematocrit. We will place the patient on aspiration precaution. We will continue to monitor the patient closely with you, Dr. Davis. Nutritional Asmnt/Malnutr-PDOC - Dietary Evaluation Malnutrition Findings (Please click <Entered> for more info): Nutritional Asmnt/Malnutrition Start: 01/29/20 16: 00 Text: Status: Complete Freq: Protocol: Document 01/29/20 16:00 ALVIN (Rec: 01/29/20 16:03 ALVIN [id number]) Nutritional Asmnt/Malnutrition Patient General Information Nutritional Screening Moderate Risk Diagnosis Psychosis Pertinent Medical Hx/Surgical Hx COPD, Chronic Pain Syndrome, Constipation, s/p Thyroid surgery Subjective Information Pt is a 69-year-old male admitted on 01/22 d/t aggressive behavior and refusing most things. Pt is eating an estimated 90% of meals since admit date (x5 days) Per Meal/Nutrition Activity Record. Dietary is currently providing an estimated 2550 kcals and 120 gm Pro, per Pt PO intake this is providing an estimated 2000 kcals and 108gm Pro to meet 100+% kcal and 100+% Pro needs- adequate to promote gradual weight gain trending towards IBW. Will continue to monitor PO intake and weight trend. Adding Ensure Enlive to dinner tray to support gradual weight gain. Visited pt in community room today, he was reading a newspaper. Upon introduction of myself he told me to go away and get out , when I tried again he got more demanding that I leave, unable to perform nutrition focused physical exam, pt agitated with a hoodie on, the miller covering much of his face. Spoke with charge nurse Alesia concerning more recent labs. Anthropometrics HT: 58 WT: 118 LB (53.64 kg) BMI: 18.03 (underweight) GI/ Skin Integrity GI: WNL, Soft, Flat BM: 01/27 x1 I/O: 1140/Not Noted Skin: WNL, Intact Adán: 19 Diet Order: Regular Estimated Energy Needs: ( underweight, CBW) 0201-5549 kcals (30-35 kcals/ kg) 65-70g Pro (1.2-1.3 g/kg) 7261-3156 ml (30-35 ml/kg) Current Diet Order/ Nutrition Support Regular Pertinent Medications Maalox (PRN), Albuterol (PRN), Dulcolax (PRN), MOM (PRN), Theragran Pertinent Labs 12/01: Alk Phos 281, Albumin 2. 9 Nutritional Hx/Data Height 1.73 m Height (Calculated Centimeters) 172.7 Current Weight (lbs) 53.72 kg Weight (Calculated Kilograms) 53.7 Weight (Calculated Grams) 81588.5 [place] Body Weight 154 LB (70 kg) % [place] Body Weight 77 Body Mass Index (BMI) 18.0 Weight Status Underweight GI Symptoms Last BM 01/27 x1 Skin Integrity/Comment: Skin: WNL, Intact Adán: 19 Current %PO Good (75-100%) Estimated Nutritional Goals BEE in Kcals: Using Current wt Calories/Kcals/Kg 30-35 Kcals Calculated 3435-8803 Protein: Using Current wt Protein g/k.2-1.3 Protein Calculated 65-70 Fluid: ml 3373-5008 Nutritional Problem 1. Problem Problem Underweight Etiology r/t consistent underconsumption of energy needs Signs/Symptoms: aeb BMI <18.50 (18.03). Intervention/Recommendation Comments 1.Continue Regular diet as tolerated. 2.Weekly weight. 3.Add Ensure to dinner tray ( completed). Expected Outcomes/Goals Expected Outcomes/Goals 1.PO intake to continue to meet >75% of estimated nutritional needs. 2.Gradual weight gain (0.5-1.0 LB /week) trending toward IBW preferred. 3.Monitor PO intake, wt, nutrition related labs, and skin integrity. 4.F/U as moderate risk in 3-5 days, 01/31-02/02.
--- NOTE | 2020-02-12 19:11 | Progress Notes ---
DATE: 02/12/2020 SUBJECTIVE: A 69-year-old male, currently in the hospital, conserved, chronic schizophrenia, refusing medications. He has IM Haldol right now stating that he is not going to take his medications because of "practicing witchcraft." Currently on dosing of Seroquel. Staff is trying to get him to take the medications, having a hard time. Also refusing COVID-19 testing for placement, so we are having a hard time with this as well. We may need to calm him down before we swab him. Agitated, irritable and at one point when I am talking to him, he stands up, approaches me to the point that I have to back away, starts talking about witchcraft that we are trying to harm him. He is pretty paranoid, decompensating on some level, given med refusals. Medications were reviewed. Labs were reviewed. Vitals were reviewed. Blood pressure 109/50, pulse of 73. MENTAL STATUS EXAMINATION: Stated age. Fair eye contact, loud, aggressive, posturing, paranoid, talking about witchcraft, delusional, believing we are trying to harm him, we are trying to poison him, very impulsive, unpredictable, responding to internal stimuli. DIAGNOSIS: Schizophrenia. ASSESSMENT: A 69-year-old male, decompensating on some level, more delusional, psychotic. PLAN: We will switch him over to Haldol. Given his med refusals, most likely I will transition to Haldol Decanoate. No need for a Riese hearing, given he is conserved. Nursing staff will offer him p.o. medications. If he refuses, we will give IM backup medication. Ongoing safety concerns given increasing delusion. JOB# [id number]
[2020-02-13] MEDS: Multivitamin Tab PO SCH (08:23)
--- NOTE | 2020-02-13 12:26 | Internal Medicine Prog Note ---
Internal Medicine Subjective - Subjective Patient seen and examined:: with staff, chart reviewed Patient is:: awake, verbal, interactive Per staff patient has:: no adverse event, no episodes of fall, poor oral intake , tolerating meds Internal Medicine Objective - Physical Exam Vitals and I&O: Vital Signs Temp 97.7 F 02/11/20 20:00 Pulse 87 02/11/20 20:00 Resp 20 02/12/20 08:00 BP 99/61 02/11/20 20:00 Pulse Ox 94 02/11/20 20:00 Intake & Output 02/12/20 02/13/20 02/13/20 18:59 06:59 18:59 Intake Total 1200 240 Balance 1200 240 Intake: Oral 1200 240 Other: # Voids 2 # Bowel Movements 1 0 Active Medications: Current Medications Acetaminophen (Tylenol) 650 mg PO Q4H PRN PRN Reason: Pain (Mild 1-3) Stop: 03/23/20 13:04 Last Admin: 01/25/20 10:02 Dose: 650 mg Al Hydrox/Mg Hydrox/Simethicone (Maalox) 30 ml PO Q6H PRN PRN Reason: Dyspepsia Stop: 03/23/20 13:04 Albuterol Sulfate (Albuterol 2.5mg/3ml Neb Ud) 2.5 mg HHN Q6HR PRN PRN Reason: SOB DUE TO Cough Stop: 03/23/20 13:04 Bisacodyl (Dulcolax 10 Mg Supp) 10 mg RC DAILY PRN PRN Reason: IF MOM IS INEFFECTIVE Stop: 03/23/20 13:04 Guaifenesin/Dextromethorphan (Robitussin Dm) 5 ml PO Q6H PRN PRN Reason: Cough Stop: 03/23/20 13:04 Last Admin: 02/03/20 22:03 Dose: 5 ml Haloperidol (Haldol) 5 mg PO BID IRAIS; Protocol Stop: 04/12/20 16:59 Last Admin: 02/13/20 08:23 Dose: 5 mg Haloperidol Lactate (Haldol) 3 mg IM BID PRN PRN Reason: Agitation If refused po meds. Stop: 04/11/20 12:56 Hyoscyamine Sulfate (Levsin) 0.125 mg PO Q6HR PRN PRN Reason: GI tract spasms. Lorazepam (Ativan) 0.5 mg PO Q4HR PRN; Protocol PRN Reason: Anxiety Stop: 03/23/20 13:04 Last Admin: 02/08/20 21:15 Dose: 0.5 mg Magnesium Hydroxide (Milk Of Magnesia) 30 ml PO HS PRN PRN Reason: Constipation Stop: 03/23/20 13:04 Last Admin: 01/26/20 21:09 Dose: 30 ml Multivitamins/Vitamin C (Theragran) 1 tab PO DAILY IRAIS Stop: 03/24/20 08:59 Last Admin: 02/13/20 08:23 Dose: 1 tab Zolpidem Tartrate (Ambien) 5 mg PO HS PRN PRN Reason: Insomnia Stop: 03/23/20 13:04 Last Admin: 02/05/20 20:48 Dose: 5 mg General: demented HEENT: NC/AT, PERRLA Neck: Supple, No JVD Lungs: CTAB Cardiovascular: RRR, Normal S1, Normal S2, with murmur Abdomen: soft, non-distended, positive bowel sound Extremities: excoriation Neurological: no change Internal Medicine Assmt/Plan - Assessment Assessment: ASSESSMENT AND PLAN: Alzheimer's dementia, history of anemia, dysphagia, chronic pain syndrome, chronic low back pain, elevated liver function tests, chronic obstructive pulmonary disease, constipation. - Plan Plan: PLAN: We will review the patient's medication. We will place the patient on albuterol and Atrovent as needed basis. We will monitor hemoglobin and hematocrit. We will place the patient on aspiration precaution. We will continue to monitor the patient closely with you, Dr. Davis. Nutritional Asmnt/Malnutr-PDOC - Dietary Evaluation Malnutrition Findings (Please click <Entered> for more info): Nutritional Asmnt/Malnutrition Start: 01/29/20 16: 00 Text: Status: Complete Freq: Protocol: Document 01/29/20 16:00 ALVIN (Rec: 01/29/20 16:03 ALVIN [id number]) Nutritional Asmnt/Malnutrition Patient General Information Nutritional Screening Moderate Risk Diagnosis Psychosis Pertinent Medical Hx/Surgical Hx COPD, Chronic Pain Syndrome, Constipation, s/p Thyroid surgery Subjective Information Pt is a 69-year-old male admitted on 01/22 d/t aggressive behavior and refusing most things. Pt is eating an estimated 90% of meals since admit date (x5 days) Per Meal/Nutrition Activity Record. Dietary is currently providing an estimated 2550 kcals and 120 gm Pro, per Pt PO intake this is providing an estimated 2000 kcals and 108gm Pro to meet 100+% kcal and 100+% Pro needs- adequate to promote gradual weight gain trending towards IBW. Will continue to monitor PO intake and weight trend. Adding Ensure Enlive to dinner tray to support gradual weight gain. Visited pt in community room today, he was reading a newspaper. Upon introduction of myself he told me to go away and get out , when I tried again he got more demanding that I leave, unable to perform nutrition focused physical exam, pt agitated with a hoodie on, the miller covering much of his face. Spoke with charge nurse Alesia concerning more recent labs. Anthropometrics HT: 58 WT: 118 LB (53.64 kg) BMI: 18.03 (underweight) GI/ Skin Integrity GI: WNL, Soft, Flat BM: 01/27 x1 I/O: 1140/Not Noted Skin: WNL, Intact Adán: 19 Diet Order: Regular Estimated Energy Needs: ( underweight, CBW) 4536-1519 kcals (30-35 kcals/ kg) 65-70g Pro (1.2-1.3 g/kg) 5480-3539 ml (30-35 ml/kg) Current Diet Order/ Nutrition Support Regular Pertinent Medications Maalox (PRN), Albuterol (PRN), Dulcolax (PRN), MOM (PRN), Theragran Pertinent Labs 12/01: Alk Phos 281, Albumin 2. 9 Nutritional Hx/Data Height 1.73 m Height (Calculated Centimeters) 172.7 Current Weight (lbs) 53.72 kg Weight (Calculated Kilograms) 53.7 Weight (Calculated Grams) 12375.5 [place] Body Weight 154 LB (70 kg) % [place] Body Weight 77 Body Mass Index (BMI) 18.0 Weight Status Underweight GI Symptoms Last BM 01/27 x1 Skin Integrity/Comment: Skin: WNL, Intact Adán: 19 Current %PO Good (75-100%) Estimated Nutritional Goals BEE in Kcals: Using Current wt Calories/Kcals/Kg 30-35 Kcals Calculated 6758-2257 Protein: Using Current wt Protein g/k.2-1.3 Protein Calculated 65-70 Fluid: ml 2320-0269 Nutritional Problem 1. Problem Problem Underweight Etiology r/t consistent underconsumption of energy needs Signs/Symptoms: aeb BMI <18.50 (18.03). Intervention/Recommendation Comments 1.Continue Regular diet as tolerated. 2.Weekly weight. 3.Add Ensure to dinner tray ( completed). Expected Outcomes/Goals Expected Outcomes/Goals 1.PO intake to continue to meet >75% of estimated nutritional needs. 2.Gradual weight gain (0.5-1.0 LB /week) trending toward IBW preferred. 3.Monitor PO intake, wt, nutrition related labs, and skin integrity. 4.F/U as moderate risk in 3-5 days, 01/31-02/02.
--- NOTE | 2020-02-13 14:17 | Progress Notes ---
DATE: 02/13/2020 SUBJECTIVE: This is a 69-year-old male, currently in the hospital, apologetic for his behavior yesterday, tangential, saying sorry, even saying, "I don't feel very much sense," stating "a bit ago, smallest number on the number" then stating, "I can't feel." The patient is bizarre, very hard to follow his thought processes, disorganized. The patient is back on a medication regimen Haldol twice daily with an IM backup, plans to transition to Haldol Decanoate given poor med compliance, opposition to treatment. The patient with fair sleep and appetite, mostly withdrawn, keeps to self, ongoing perceptual disturbances, mumbling to self, very impulsive, highly unpredictable. Medications were reviewed. Labs were reviewed. Vitals were reviewed. No overt medication side effects noted. No EPS, no akathisia. MENTAL STATUS EXAMINATION: Stated age. Fair eye contact, disheveled, unkempt, tangential, mumbling to self, rambling and impulsive. DIAGNOSES: Schizophrenia, chronic. ASSESSMENT: A 69-year-old male, currently in the hospital, medication refusals, had decompensated, now back on medications, seems to be calmer, but still disorganized, psychotic. PLAN: Complex case. Difficult to control symptoms. The patient opposed to treatment, tolerant to medications. We will continue to monitor, transition slowly to Haldol Decanoate. Current vitals are 130/68 with a pulse of 88. JOB# [id number]
--- NOTE | 2020-02-15 17:32 | Progress Notes ---
DATE: 02/03/2020 SUBJECTIVE: The patient in the hospital, ongoing periods of agitation and restlessness, ongoing psychosis, internally preoccupied, ongoing confusional state, at times, resistive to medications, mumbling to self, responding to internal stimuli. Staff noting he is redirectable, fair sleep, appetite. Medications were reviewed. Labs were reviewed. Vitals were reviewed, at times refusing vitals. No EPS, no akathisia. Sometimes gets upset, very impulsive, highly unpredictable. MENTAL STATUS EXAMINATION: Stated age, fair eye contact, mostly internally preoccupied, disengaged. Mood "okay." Affect flat. DIAGNOSIS: Unchanged schizophrenia, chronic. PLAN: Complex case, some resistance to treatment. We will continue to monitor. Continue to encourage medication compliance. JOB# [id number]
== END 2020-02-13 15:47 | DRG 880 ==
LOC: GERO 10:15
PROVIDERS: ADMIT Psychiatry & Neurology Psychiatry; ATTEND Psychiatry & Neurology Psychiatry
DX: F41.9 Anxiety disorder, unspecified (principal); F39 Unspecified mood [affective] disorder; G30.9 Alzheimer's disease, unspecified; F02.80 Dementia in other diseases classified elsewhere, unspecified severity, without behavioral disturbance, psychotic disturbance, mood disturbance, and anxiety; G89.4 Chronic pain syndrome; J44.9 Chronic obstructive pulmonary disease, unspecified; K59.00 Constipation, unspecified; Z79.899 Other long term (current) drug therapy; Z79.51 Long term (current) use of inhaled steroids
CPT/HCPCS: 83036-90; G0410; Z7610